=== PATIENT | female | born 1935 ===

== ENCOUNTER 2017-02-17 08:58 | Inpatient (IN) | payer MEDICARE, OTHER ==
[2017-02-17 09:42] LABS: BASO # 0.1 K/uL (0.0-0.2); BASO % 0.9 % (0.0-2.0); EOS # 0.2 K/uL (0.0-0.7); LYMPH # 1.2 K/uL (1.0-4.3); LYMPH % 22.7 % (20.0-40.0); MEAN CELL VOLUME 90.1 fl (81.0-99.0); MEAN CORPUSCULAR HEMOGLOBIN 29.7 pg (27.0-31.0); MEAN PLATELET VOLUME 7.6 fl (7.2-11.7); MONO # 0.3 K/uL (0.0-0.8); MONO % 5.8 % (0.0-10.0); NEUT # 3.6 K/uL (1.8-7.0); NEUT % 67.6 % (50.0-75.0); RED CELL DISTRIBUTION WIDTH 15.3 % (11.5-14.5); WHITE BLOOD COUNT 5.4 K/uL (4.8-10.8)
[2017-02-17 09:56] LABS: ALB/GLOB RATIO 1.2 (1.0-2.1); BILIRUBIN,TOTAL 0.9 mg/dl (0.2-1.3); CALCIUM 10.1 mg/dL (8.4-10.2); TOTAL PROTEIN 7.5 G/DL (6.3-8.2)
[2017-02-17 10:07] LABS: PARTIAL THROMBOPLASTIN TIME 31.5 SECONDS (23.3-32.5)
--- NOTE | 2017-02-17 10:53 | ED PDOC ---
HPI: General Adult Time Seen by Provider: 02/17/17 09:15 Chief Complaint (Nursing): GI Problem Chief Complaint (Provider): rectal bleeding History Per: Patient History/Exam Limitations: no limitations Current Symptoms Are (Timing): Still Present Severity: Moderate Recently: Treated By A Physician, Hospitalized Additional Complaint(s): 81yo female history recent PE now taking Xarelto, c/o rectal bleeding started this morning, 2 episodes grossly bloody stool accompanied by mild lower abd pain , dizziness and anxiety. Denies sycope, vomiting or fever. Also noted mild epistaxis in ED. Past Medical History Vital Signs: Last Vital Signs Temp 97.3 F L 02/20/17 12:18 Pulse 77 02/20/17 12:18 Resp 18 02/20/17 12:18 BP 131/72 02/20/17 12:18 Pulse Ox 99 02/20/17 12:18 - Medical History PMH: Anxiety, Arthritis, CAD, Depression, Diabetes (type II, takes Metformin), Diverticulitis, Gastritis, HTN, Hypercholesterolemia, Hypothyroidism Denies: Alzheimer's Disease, Atrial Fibrillation, Cardia Arrhythmia, CHF, Emphysema, HIV, Chronic Kidney Disease - Surgical History Surgical History: CABG, Cholecystectomy, Hernia Repair, Pacemaker, Tonsillectomy - Family History Family History: States: Unknown Family Hx - Home Medications Home Medications: Ambulatory Orders Medication Instructions Recorded Atorvastatin Calcium [Lipitor] 10 mg PO MWF 04/24/15 Alogliptin Benzoate [Nesina] 25 mg PO DAILY #0 tablet 09/29/16 Carvedilol [Coreg] 3.125 mg PO Q12H #0 tab 09/29/16 Dexlansoprazole [Dexilant] 60 mg PO DAILY #0 bp 09/29/16 Levothyroxine [Synthroid] 88 mcg PO DAILY #0 tab 09/29/16 Lorazepam [Ativan] 0.5 mg PO TID PRN #0 tablet 09/29/16 Escitalopram [Lexapro] 5 mg PO DAILY 01/28/17 Pioglitazone [Actos] 30 mg PO DAILY 01/28/17 Primidone [Mysoline] 25 mg PO HS 01/28/17 Rivaroxaban [Xarelto] 20 mg PO DAILY #30 tab 02/20/17 Sucralfate [Carafate] 1 gm PO TID #90 tab 02/20/17 - Allergies Allergies/Adverse Reactions: Allergies Allergy/AdvReac Type Severity Reaction Status Date / Time No Known Allergies Allergy Verified 01/28/17 10:28 Review of Systems ROS Statement: Except As Marked, All Systems Reviewed And Found Negative Constitutional: Negative for: Fever, Chills Eyes: Negative for: Vision Change, Conjunctivae Inflammation Cardiovascular: Positive for: Light Headedness. Negative for: Chest Pain, Palpitations Respiratory: Negative for: Cough, Shortness of Breath Gastrointestinal: Positive for: Abdominal Pain, Hematochezia, Rectal Pain. Negative for: Nausea, Vomiting, Diarrhea Musculoskeletal: Negative for: Neck Pain, Shoulder Pain Skin: Negative for: Rash, Lesions Neurological: Positive for: Dizziness. Negative for: Weakness, Numbness, Altered Mental Status Psych: Negative for: Depression Physical Exam - Reviewed Nursing Documentation Reviewed: Yes Vital Signs Reviewed: Yes - Physical Exam Appears: Positive for: Well, Non-toxic, No Acute Distress Head Exam: Positive for: ATRAUMATIC, NORMAL INSPECTION, NORMOCEPHALIC Skin: Positive for: Warm, Pallor (mild) Eye Exam: Positive for: EOMI, Normal appearance, PERRL ENT: Positive for: Normal ENT Inspection Neck: Positive for: Normal, Painless ROM Cardiovascular/Chest: Positive for: Regular Rate, Rhythm Respiratory: Positive for: CNT, Normal Breath Sounds Gastrointestinal/Abdominal: Positive for: Normal Exam, Bowel Sounds, Soft Back: Positive for: Normal Inspection Extremity: Positive for: Normal ROM Neurologic/Psych: Positive for: Alert, Oriented - Laboratory Results Result Diagrams: 02/20/17 11:35 02/17/17 09:32 - ECG O2 Sat by Pulse Oximetry: 100 Pulse Ox Interpretation: Normal Medical Decision Making Medical Decision Making: workup initated for rectal bleeding in elderly female on anticoagulation. Labs were reviewed which revealed mild anemia. Patient was admitted Dr Peters for further workup and monitoring. Disposition - Clinical Impression Clinical Impression: Gastrointestinal hemorrhage - Patient ED Disposition Is Patient to be Admitted: Yes Counseled Patient/Family Regarding: Studies Performed, Diagnosis, Need For Followup - Disposition Disposition Time: 11:35 Condition: GUARDED - Pt Status Changed To: Hospital Disposition Of: Observation - POA Present On Arrival: None
[2017-02-17 13:33] LABS: RBC URINE 2 /hpf (0-3); URINE BILIRUBIN NEGATIVE (NEGATIVE); URINE BLOOD NEGATIVE (NEGATIVE); URINE COLOR STRAW (YELLOW); URINE GLUCOSE (UA) NEG (Normal); URINE KETONE NEGATIVE (NEGATIVE); URINE LEUKOCYTE ESTERASE TRACE Leu/uL (Negative); URINE PROTEIN NEGATIVE (NEGATIVE); URINE UROBILINOGEN 0.2-1.0 mg/dL (0.2-1.0); WBC URINE < 1 /hpf (0-5)
[2017-02-17] MEDS ORDERED: Sucralfate 1 gm/10 ml Oral Susp UD PO ONE (21:00)
[2017-02-18 09:00] LABS: BASO % 0.7 % (0.0-2.0); EOS # 0.2 K/uL (0.0-0.7); EOS % 4.3 % (0.0-4.0); HEMATOCRIT 30.5 % (34.0-47.0); LYMPH # 1.4 K/uL (1.0-4.3); LYMPH % 26.7 % (20.0-40.0); MEAN CELL VOLUME 90.3 fl (81.0-99.0); MEAN CORPUSCULAR HEMOGLOBIN 29.8 pg (27.0-31.0); MEAN PLATELET VOLUME 7.6 fl (7.2-11.7); MONO # 0.4 K/uL (0.0-0.8); MONO % 7.1 % (0.0-10.0); NEUT # 3.3 K/uL (1.8-7.0); NEUT % 61.2 % (50.0-75.0); RED CELL DISTRIBUTION WIDTH 14.8 % (11.5-14.5); WHITE BLOOD COUNT 5.4 K/uL (4.8-10.8)
--- NOTE | 2017-02-18 10:58 | CP.PCM.HP ---
History of Present Illness - History of Present Illness History of Present Illness: This is an 81 y/o female who had a rectal bleed and epistaxis this morning. She was just diagnosed to have Pulm embolism and was hospitalized in [facility] in [facility] and sent home on Coumadin, seen in my office and was recently switched to Xarelto 15 mg BID the other day. She has a hx of DM 2 HTN anxiety paroxysmal a fib CAD CABG 3 vessel in 2006 Present on Admission - Present on Admission Any Indicators Present on Admission: No History of DVT/PE: No History of Uncontrolled Diabetes: No Urinary Catheter: No Decubitus Ulcer Present: No Review of Systems - Constitutional Constitutional: Fatigue - Cardiovascular Cardiovascular: Palpitations - Respiratory Respiratory: Cough - Psychiatric Psychiatric: Abnormal Sleep Pattern, Anxiety, Depression Past Patient History - Infectious Disease Hx of Infectious Diseases: None - Tetanus Immunizations Tetanus Immunization: Unknown - Past Medical History & Family History Past Medical History?: Yes - Past Social History Smoking Status: Never Smoked - CARDIAC Hx Cardiac Disorders: Yes - PULMONARY Hx Respiratory Disorders: Yes - NEUROLOGICAL Hx Neurological Disorder: No - HEENT Hx HEENT Problems: Yes - RENAL Hx Chronic Kidney Disease: No - ENDOCRINE/METABOLIC Hx Endocrine Disorders: Yes - HEMATOLOGICAL/ONCOLOGICAL Hx Blood Disorders: Yes - INTEGUMENTARY Hx Dermatological Problems: No - MUSCULOSKELETAL/RHEUMATOLOGICAL Hx Musculoskeletal Disorders: Yes Hx Falls: No - GASTROINTESTINAL Hx Diverticulitis: Yes Hx Gastritis: Yes - GENITOURINARY/GYNECOLOGICAL Hx Genitourinary Disorders: No - PSYCHIATRIC Hx Psychophysiologic Disorder: Yes Hx Substance Use: No - SURGICAL HISTORY Hx Cholecystectomy: Yes Hx Coronary Artery Bypass Graft: Yes Hx Tonsillectomy: Yes - ANESTHESIA Hx Anesthesia: Yes Hx Anesthesia Reactions: No Hx Malignant Hyperthermia: No Meds Home Medications: Home Medication List Medication Instructions Recorded Confirmed Type Pantoprazole [Protonix Inj] 40 mg IVP DAILY vial 02/18/17 Rx Sucralfate [Carafate Tab] 1 gm PO TID tab 02/18/17 Rx Allergies/Adverse Reactions: Allergies Allergy/AdvReac Type Severity Reaction Status Date / Time No Known Allergies Allergy Verified 01/28/17 10:28 Physical Exam - Head Exam Head Exam: NORMAL INSPECTION - Eye Exam Eye Exam: Normal appearance - ENT Exam ENT Exam: Mucous Membranes Moist Additional comments: epistaxis noted mild - Respiratory Exam Respiratory Exam: Clear to Auscultation Bilateral - Cardiovascular Exam Cardiovascular Exam: REGULAR RHYTHM - GI/Abdominal Exam GI & Abdominal Exam: Normal Bowel Sounds - Neurological Exam Neurological exam: CN II-XII Intact, Oriented x3 Results - Vital Signs Recent Vital Signs: Last Vital Signs Temp 97.8 F 02/18/17 09:00 Pulse 72 02/18/17 09:00 Resp 20 02/18/17 09:00 BP 133/71 02/18/17 09:00 Pulse Ox 98 02/18/17 09:00 - Labs Result Diagrams: 02/18/17 08:35 02/17/17 09:32 Labs: Laboratory Results - last 24 hr 02/17/17 02/18/17 12:08 08:35 WBC 5.4 RBC 3.38 L Hgb 10.1 L Hct 30.5 L MCV 90.3 MCH 29.8 MCHC 33.0 RDW 14.8 H Plt Count 175 MPV 7.6 Neut % (Auto) 61.2 Lymph % (Auto) 26.7 [place] % (Auto) 7.1 Eos % (Auto) 4.3 H Baso % (Auto) 0.7 Neut # 3.3 Lymph # 1.4 [place] # 0.4 Eos # 0.2 Baso # 0.0 Urine Color Straw Urine Clarity Clear Urine pH 9.0 Ur Specific [place] 1.008 Urine Protein Negative Urine Glucose (UA) Neg Urine Ketones Negative Urine Blood Negative Urine Nitrate Negative Urine Bilirubin Negative Urine Urobilinogen 0.2-1.0 Ur Leukocyte Esterase Trace Urine RBC (Auto) 2 Urine Microscopic WBC < 1 Ur Squamous Epith Cells 1 Assessment & Plan (1) HTN (hypertension) Status: Acute (2) S/P CABG (coronary artery bypass graft) Status: Acute (3) Anxiety attack Status: Chronic (4) Rectal bleed Status: Acute (5) Epistaxis Status: Acute (6) Pulmonary emboli Status: Acute (7) Paroxysmal a-fib Status: Acute (8) Hypothyroidism Status: Acute (9) Diabetes mellitus type 2 in nonobese Status: Acute - Assessment and Plan (Free Text) Plan: Hold Xarelto cardiology eval GI eval NPO Hydrate cont tx resume meds in am.check cbcantacid
--- NOTE | 2017-02-18 10:59 | CP.PCM.PN ---
Subjective - Date & Time of Evaluation Date of Evaluation: 02/18/17 Time of Evaluation: 10:59 - Subjective Subjective: Patient is now on clear liquids. has no episode of rectal bled today. Started on clear liquids CBC has been stable. Objective - Vital Signs/Intake and Output Vital Signs (last 24 hours): Temp Pulse Resp BP Pulse Ox 97.8 F 72 20 133/71 98 02/18/17 09:00 02/18/17 09:00 02/18/17 09:00 02/18/17 09:00 02/18/17 09:00 - Medications Medications: Current Medications Lorazepam (Ativan) 0.5 mg PO Q8 [facility] Last Admin: 02/18/17 09:12 Dose: 0.5 mg Pantoprazole Sodium (Protonix Inj) 40 mg IVP DAILY [facility] Last Admin: 02/18/17 09:12 Dose: 40 mg Sucralfate (Carafate Tab) 1 gm PO TID [facility] Last Admin: 02/18/17 09:12 Dose: 1 gm - Labs Labs: 02/18/17 08:35 PT 14.4 SECONDS (9.6-11.2) H 02/17/17 09:32 INR 1.38 (0.92-1.08) H 02/17/17 09:32 APTT 31.5 SECONDS (23.3-32.5) 02/17/17 09:32 - Head Exam Head Exam: NORMAL INSPECTION - Eye Exam Eye Exam: Normal appearance - ENT Exam ENT Exam: Mucous Membranes Moist - Respiratory Exam Respiratory Exam: Clear to Ausculation Bilateral - Cardiovascular Exam Cardiovascular Exam: REGULAR RHYTHM - GI/Abdominal Exam GI & Abdominal Exam: Normal Bowel Sounds - Neurological Exam Neurological Exam: CN II-XII Intact, Oriented x3 - Psychiatric Exam Psychiatric exam: Normal Mood Assessment and Plan (1) Diabetes mellitus type 2 in nonobese Status: Acute (2) Epistaxis Status: Acute (3) Hypothyroidism Status: Acute (4) Paroxysmal a-fib Status: Acute (5) Pulmonary emboli Status: Acute (6) Rectal bleed Status: Acute (7) Anxiety Status: Acute - Assessment and Plan (Free Text) Plan: contmeds follow up cbc advanace diet DC plan for am cont monitor hydrate
--- NOTE | 2017-02-18 19:01 | CP.PCM.CON ---
History of Present Illness - History of Present Illness History of Present Illness: I was asked by Dr. Peters to evaluate this 81 year old lady followed by Dr. Rawls who was admitted to the hospital with rectal bleeding and epistaxis. The patient was recently seen at [facility] for shortness of breath. At that time, she was diagnosed with pulmonary embolism and discharged on warfarin therapy. This was changed to xarelto last week prior to the bleeding. The patient is seen in her room with a family member present during the encounter. She denies chest pain or shortness of breath. The patient has a known history of CAD s/p 3 vessel CABG in 2006 at [facility], atrial fibrillation, and hypertension. Review of Systems - Constitutional Constitutional: As Per HPI - EENT Eyes: As Per HPI Past Patient History - Infectious Disease Hx of Infectious Diseases: None - Tetanus Immunizations Tetanus Immunization: Unknown - Past Medical History & Family History Past Medical History?: Yes - Past Social History Smoking Status: Never Smoked - CARDIAC Hx Cardiac Disorders: Yes Hx Hypertension: Yes Hx Pacemaker: Yes - PULMONARY Hx Respiratory Disorders: Yes - NEUROLOGICAL Hx Neurological Disorder: No - HEENT Hx HEENT Problems: Yes - RENAL Hx Chronic Kidney Disease: No - ENDOCRINE/METABOLIC Hx Endocrine Disorders: Yes - HEMATOLOGICAL/ONCOLOGICAL Hx Blood Disorders: Yes - INTEGUMENTARY Hx Dermatological Problems: No - MUSCULOSKELETAL/RHEUMATOLOGICAL Hx Musculoskeletal Disorders: Yes Hx Falls: No - GASTROINTESTINAL Hx Diverticulitis: Yes Hx Gastritis: Yes - GENITOURINARY/GYNECOLOGICAL Hx Genitourinary Disorders: No - PSYCHIATRIC Hx Psychophysiologic Disorder: Yes Hx Substance Use: No - SURGICAL HISTORY Hx Cholecystectomy: Yes Hx Coronary Artery Bypass Graft: Yes Hx Tonsillectomy: Yes - ANESTHESIA Hx Anesthesia: Yes Hx Anesthesia Reactions: No Hx Malignant Hyperthermia: No Meds Home Medications: Home Medication List Medication Instructions Recorded Confirmed Type Pantoprazole [Protonix Inj] 40 mg IVP DAILY vial 02/18/17 Rx Sucralfate [Carafate Tab] 1 gm PO TID tab 02/18/17 Rx Allergies/Adverse Reactions: Allergies Allergy/AdvReac Type Severity Reaction Status Date / Time No Known Allergies Allergy Verified 01/28/17 10:28 - Medications Medications: Current Medications Lorazepam (Ativan) 0.5 mg PO Q8 [facility] Last Admin: 02/18/17 17:24 Dose: 0.5 mg Pantoprazole Sodium (Protonix Inj) 40 mg IVP DAILY [facility] Last Admin: 02/18/17 09:12 Dose: 40 mg Rivaroxaban (Xarelto) 15 mg PO BID [facility] PRN Reason: Protocol Last Admin: 02/18/17 18:01 Dose: 15 mg Sucralfate (Carafate Tab) 1 gm PO TID [facility] Last Admin: 02/18/17 17:22 Dose: 1 gm Physical Exam - Constitutional Appears: Well, Non-toxic, No Acute Distress - Head Exam Head Exam: ATRAUMATIC, NORMOCEPHALIC - Eye Exam Eye Exam: EOMI, PERRL Pupil Exam: NORMAL ACCOMODATION - ENT Exam ENT Exam: Mucous Membranes Moist - Neck Exam Neck exam: Positive for: Normal Inspection - Respiratory Exam Respiratory Exam: Clear to Auscultation Bilateral, NORMAL BREATHING PATTERN - Cardiovascular Exam Cardiovascular Exam: REGULAR RHYTHM, +S1, +S2 - GI/Abdominal Exam GI & Abdominal Exam: Normal Bowel Sounds - Extremities Exam Extremities exam: Positive for: full ROM - Back Exam Back exam: NORMAL INSPECTION - Neurological Exam Neurological exam: CN II-XII Intact Results - Vital Signs Recent Vital Signs: Last Vital Signs Temp 97.8 F 02/18/17 17:00 Pulse 67 02/18/17 17:00 Resp 20 02/18/17 17:00 BP 152/79 H 02/18/17 17:00 Pulse Ox 98 02/18/17 17:00 - Labs Result Diagrams: 02/18/17 08:35 02/17/17 09:32 Labs: Laboratory Results - last 24 hr 02/18/17 08:35 WBC 5.4 RBC 3.38 L Hgb 10.1 L Hct 30.5 L MCV 90.3 MCH 29.8 MCHC 33.0 RDW 14.8 H Plt Count 175 MPV 7.6 Neut % (Auto) 61.2 Lymph % (Auto) 26.7 [place] % (Auto) 7.1 Eos % (Auto) 4.3 H Baso % (Auto) 0.7 Neut # 3.3 Lymph # 1.4 [place] # 0.4 Eos # 0.2 Baso # 0.0 Assessment & Plan - Assessment and Plan (Free Text) Assessment: 1. Rectal bleed. 2. Anemia. 3. Paroxysmal atrial fibrillation. 4. SSS. Plan: 1. Hold anticoagulation due to bleeding. 2. Continue present cardiac medications. 3. Follow up in the office with Dr. Rawls.
[2017-02-20 07:37] VITALS: RESP 18
--- NOTE | 2017-02-20 08:35 | PQF GENQUE ---
This form is a permanent part of the medical record 02/20/17 Dr. Peters, A cause and effect relationship may not be assumed and must be documented by a provider. Please clarify the relationship, if any, between THE USE OF XARELTO and RECTAL BLEEDING/ EPISTAXIS. Are the conditions: [] Due to or associated with each other [] Unrelated to each other [] Unable to determine [] Unknown Just diagnosed at another hospital with a pulmonary embolism. Started on warfarin which was switched to xarelto. Developed rectal bleeding and epistaxis. Treated with protonix and carafate. Clarification of your documentation is requested to better reflect the severity of illness and intensity of treatment of your patient. PHYSICIAN'S RESPONSE Please clarify the relationship, if any, between THE USE OF XARELTO and RECTAL BLEEDING/ EPISTAXIS. Are the conditions: [ ] Due to or associated with each other [ ] Unrelated to each other [ ] Unable to determine [ ] Unknown Based on your medical judgment of the clinical indicators outlined above please clarify the following: [] Practitioner response [] If unable to determine, please check the box, sign and date. Present On Admission (POA) Indicator: [] Present at the time of admission [] Not present at the time of admission [] Clinically Undetermined In responding to this query, please exercise your independent professional judgment. The fact that a question is asked does not imply that any particular answer is desired or expected. Thank you for your clarification on this documentation. If you have any questions please call:[phone] * Thank you, Melinda Morales RN [facility]
[2017-02-20 11:59] LABS: HEMATOCRIT 35.4 % (34.0-47.0); MEAN CELL VOLUME 91.3 fl (81.0-99.0); MEAN CORPUSCULAR HEMOGLOBIN 30.4 pg (27.0-31.0); MEAN CORPUSCULAR HGB CONC 33.3 g/dL (33.0-37.0); RED CELL DISTRIBUTION WIDTH 14.6 % (11.5-14.5)
--- NOTE | 2017-02-20 12:16 | CP.PCM.PN ---
Subjective - Date & Time of Evaluation Date of Evaluation: 02/20/17 Time of Evaluation: 12:15 - Subjective Subjective: Reason for visit: GI bleeding. Interval History: The patient is doing well and is OOB to a chair. She denies any further GI bleeding or epistaxsis and has been stable cardiac [place] without complaints of chest pain or dyspnea. She is eager to be discharged home. Objective - Vital Signs/Intake and Output Vital Signs (last 24 hours): Temp Pulse Resp BP Pulse Ox 98.3 F 50 L 18 150/76 99 02/20/17 08:00 02/20/17 09:00 02/20/17 08:00 02/20/17 08:00 02/20/17 08:00 - Medications Medications: Current Medications Lorazepam (Ativan) 0.5 mg PO Q8 [facility] Last Admin: 02/20/17 09:28 Dose: 0.5 mg Pantoprazole Sodium (Protonix Inj) 40 mg IVP DAILY [facility] Last Admin: 02/20/17 09:26 Dose: 40 mg Sucralfate (Carafate Tab) 1 gm PO TID [facility] Last Admin: 02/20/17 09:26 Dose: 1 gm - Labs Labs: 02/20/17 11:35 PT 14.4 SECONDS (9.6-11.2) H 02/17/17 09:32 INR 1.38 (0.92-1.08) H 02/17/17 09:32 APTT 31.5 SECONDS (23.3-32.5) 02/17/17 09:32 - Constitutional Appears: Well, No Acute Distress - Head Exam Head Exam: ATRAUMATIC, NORMAL INSPECTION, NORMOCEPHALIC - Eye Exam Eye Exam: Normal appearance Pupil Exam: PERRL - ENT Exam ENT Exam: Mucous Membranes Moist, Normal Exam - Neck Exam Neck Exam: Full ROM - Respiratory Exam Respiratory Exam: Clear to Ausculation Bilateral, NORMAL BREATHING PATTERN - Cardiovascular Exam Cardiovascular Exam: REGULAR RHYTHM, +S1, +S2, Murmur - GI/Abdominal Exam GI & Abdominal Exam: Soft - Rectal Exam Rectal Exam: Deferred - Extremities Exam Extremities Exam: Full ROM, Normal Inspection - Back Exam Back Exam: NORMAL INSPECTION - Neurological Exam Neurological Exam: Alert, Awake, Oriented x3 - Psychiatric Exam Psychiatric exam: Normal Affect, Normal Mood - Skin Skin Exam: Dry, Intact, Normal Color Assessment and Plan - Assessment and Plan (Free Text) Assessment: GI bleed, Hgb stable. CAD, s/p CABG. Hypertension, stable. Dyslipidemia. Pulmonary embolism, recent. Plan: Continue present medical management. I have discussed the case with the primary care [employer] regarding anticoagulation with Xarelto which should be restarted since there is no further evidence of bleeding and the pulmonary embolism was diagnosed recently. Stable for discharge.
[2017-02-20 12:19] VITALS: BP 131/72; PULSE 77; TEMP 97.3
[2017-02-25 10:53] VITALS: O2SAT 100
== END 2017-02-20 14:50 | disposition home or self-care (01) | DRG 377 ==
LOC: H.ER 08:58 → H.ERHOLD 10:50 → H.TEL 18:30
PROVIDERS: ADMIT Family Medicine; ATTEND Family Medicine
DX: K62.5 Hemorrhage of anus and rectum (principal); I26.99 Other pulmonary embolism without acute cor pulmonale; I49.5 Sick sinus syndrome; E11.9 Type 2 diabetes mellitus without complications; I10 Essential (primary) hypertension; D64.9 Anemia, unspecified; T45.515A Adverse effect of anticoagulants, initial encounter; F32.9 Major depressive disorder, single episode, unspecified; I48.0 Paroxysmal atrial fibrillation; Z95.1 Presence of aortocoronary bypass graft; F41.1 Generalized anxiety disorder; R04.0 Epistaxis; I25.10 Atherosclerotic heart disease of native coronary artery without angina pectoris; E03.9 Hypothyroidism, unspecified; E78.00 Pure hypercholesterolemia, unspecified; F41.9 Anxiety disorder, unspecified; Z90.49 Acquired absence of other specified parts of digestive tract; Z86.711 Personal history of pulmonary embolism; Z79.01 Long term (current) use of anticoagulants; E78.5 Hyperlipidemia, unspecified; Y92.9 Unspecified place or not applicable

== ENCOUNTER 2017-07-11 11:31 | Observation (INO) | payer MEDICARE, OTHER ==
[2017-07-11 11:40] VITALS: BMI 27.8
--- NOTE | 2017-07-11 12:51 | RAD ---
HISTORY: CP COMPARISON: 09/28/2016 TECHNIQUE: Chest PA and lateral FINDINGS: LUNGS: No active pulmonary disease. PLEURA: No significant pleural effusion identified. No pneumothorax apparent. CARDIOVASCULAR: Normal heart size. Status post CABG. Permanent pacemaker. No congestive change. OSSEOUS STRUCTURES: No significant abnormalities. VISUALIZED UPPER ABDOMEN: Normal. OTHER FINDINGS: None. IMPRESSION: No active disease.
[2017-07-11 13:05] LABS: BASO % 0.6 % (0.0-2.0); EOS # 0.1 K/uL (0.0-0.7); EOS % 1.1 % (0.0-4.0); HEMATOCRIT 31.9 % (34.0-47.0); LYMPH # 1.5 K/uL (1.0-4.3); LYMPH % 19.9 % (20.0-40.0); MEAN CELL VOLUME 86.9 fl (81.0-99.0); MEAN CORPUSCULAR HEMOGLOBIN 29.8 pg (27.0-31.0); MEAN CORPUSCULAR HGB CONC 34.3 g/dL (33.0-37.0); MEAN PLATELET VOLUME 7.5 fl (7.2-11.7); MONO # 0.4 K/uL (0.0-0.8); MONO % 5.2 % (0.0-10.0); NEUT # 5.6 K/uL (1.8-7.0); NEUT % 73.2 % (50.0-75.0); NRBC % 0.1 % (0.0-0.0); RED CELL DISTRIBUTION WIDTH 14.2 % (11.5-14.5); WHITE BLOOD COUNT 7.7 K/uL (4.8-10.8)
[2017-07-11 13:23] LABS: PARTIAL THROMBOPLASTIN TIME 34.4 Seconds (25.6-37.1)
[2017-07-11 13:42] LABS: BLOOD UREA NITROGEN 18 mg/dl (7-17); CARBON DIOXIDE 22 mmol/L (22-30); CHLORIDE 105 mmol/L (98-107); GFR AFRICAN-AMERICAN > 60; GLUCOSE,RANDOM 96 mg/dL (65-105); POTASSIUM 4.4 MMOL/L (3.6-5.0); SODIUM 138 mmol/l (132-148)
[2017-07-11 13:43] LABS: ALB/GLOB RATIO 1.4 (1.0-2.1); ALKALINE PHOSPHATASE 89 U/L (38-126); ALT/SGPT 18 U/L (9-52); AST/SGOT 23 U/L (14-36); BILIRUBIN,TOTAL 0.4 mg/dl (0.2-1.3); CALCIUM 10.1 mg/dL (8.4-10.2); LIPASE 95 U/L (23-300); TOTAL PROTEIN 7.3 G/DL (6.3-8.2)
[2017-07-11] MEDS ORDERED: Sodium Chloride 0.9% 50 ML IV ONE (13:53)
[2017-07-11] MEDS ORDERED: Iohexol 300 100 ML IJ ONE (13:53)
[2017-07-11 14:34] LABS: RBC URINE 3 /hpf (0-3); URINE BILIRUBIN NEGATIVE (NEGATIVE); URINE BLOOD NEGATIVE (NEGATIVE); URINE COLOR STRAW (YELLOW); URINE GLUCOSE (UA) NEG (Normal); URINE KETONE NEGATIVE (NEGATIVE); URINE LEUKOCYTE ESTERASE NEG Leu/uL (Negative); URINE PROTEIN NEGATIVE (NEGATIVE); URINE UROBILINOGEN 0.2-1.0 mg/dL (0.2-1.0); WBC URINE 1 /hpf (0-5)
--- NOTE | 2017-07-11 14:47 | CT ---
PROCEDURE: CT HEAD WITHOUT CONTRAST. HISTORY: Headache COMPARISON: 11/09/2016. TECHNIQUE: Axial computed tomography images were obtained through the head/brain without intravenous contrast. Radiation dose: Total exam DLP = 765.1 mGy-cm. This CT exam was performed using one or more of the following dose reduction techniques: Automated exposure control, adjustment of the mA and/or kV according to patient size, and/or use of iterative reconstruction technique. FINDINGS: HEMORRHAGE: No intracranial hemorrhage. BRAIN: There are mild chronic microangiopathic changes. There is no mass, mass effect or abnormal extra-axial fluid collection. VENTRICLES: There is mild age-related global parenchymal volume loss and proportionate enlargement of the ventricles and cortical sulci. CALVARIUM: The skull base and calvarium are normal. PARANASAL SINUSES: Predominantly clear. MASTOID AIR CELLS: Predominantly clear. OTHER FINDINGS: None. IMPRESSION: No acute intracranial abnormality. Mild chronic microangiopathic changes and mild age-related global parenchymal volume loss.
--- NOTE | 2017-07-11 15:29 | CT ---
PROCEDURE: CT Abdomen and Pelvis with contrast HISTORY: Gen abd pain COMPARISON: 01/28/2017 TECHNIQUE: Contrast dose: 100 mL Omnipaque 300 Radiation dose: Total exam DLP = 110.78 mGy-cm. This CT exam was performed using one or more of the following dose reduction techniques: Automated exposure control, adjustment of the mA and/or kV according to patient size, and/or use of iterative reconstruction technique. FINDINGS: LOWER THORAX: Permanent pacemaker. Sternotomy wires. No infiltrate. LIVER: Normal size, contour and attenuation. Mild intrahepatic biliary gas, particularly in left hepatic lobe, status post cholecystectomy. This is unchanged from prior CT examination. No mass. GALLBLADDER AND BILE DUCTS: Status post cholecystectomy. Mild dilatation of common bile duct to 9 mm diameter, consistent with age and prior cholecystectomy. PANCREAS: Unremarkable. No gross lesion or ductal dilatation. SPLEEN: Unremarkable. ADRENALS: Unremarkable. No mass. KIDNEYS AND URETERS: No renal mass, calculus or hydronephrosis. Cortical scarring mid left kidney with adjacent small nodular medullary calcification common nonspecific. VASCULATURE: Unremarkable. No aortic aneurysm. BOWEL: There is diverticulosis of the sigmoid colon with mild mural thickening, likely due to chronic muscular hypertrophy. There is mural thickening of a segment of small bowel, likely distal jejunum or proximal ileum. This is best seen on axial images 1 0 to through 111 in the central abdomen. This is also seen on coronal images 33 through 37. Nonspecific enteritis. No bowel obstruction. No other abnormal bowel loops. APPENDIX: Not identified. No secondary findings to suggest acute appendicitis. PERITONEUM: Unremarkable. No free fluid. No free air. LYMPH NODES: Unremarkable. No enlarged lymph nodes. BLADDER: Unremarkable. REPRODUCTIVE: Unremarkable uterus. BONES: No fracture. Multilevel degenerative disc disease. OTHER FINDINGS: None. IMPRESSION: Findings consistent with nonspecific enteritis involving a segment of distal jejunum or proximal ileum. Sigmoid diverticulosis without evidence of diverticulitis. No other acute abnormality. Additional minor findings as above.
--- NOTE | 2017-07-11 15:37 | ED PDOC ---
HPI: Chest Pain Time Seen by Provider: 07/11/17 12:07 Chief Complaint (Nursing): Chest Pain Chief Complaint (Provider): Headache, chest pain, abdominal pain History Per: Patient History/Exam Limitations: no limitations Onset/Duration Of Symptoms: Days (x 1) Current Symptoms Are (Timing): Still Present Associated Symptoms: Diaphoresis, Syncope Additional Complaint(s): Erika Mcgraw is an 81 y/o female complaining of left-sided chest pain, lower abdominal pain, and headache, for 1 day. Pain is non-radiating. Patient reports she felt constipated and at 6AM attempted to have a bowel movement, during which she became diaphoretic had a near syncope episode. She also had diarrhea. Denies nausea and vomiting. PMD: Ishan Peters Past Medical History Reviewed: Historical Data, Nursing Documentation, Vital Signs Vital Signs: Last Vital Signs Temp 97.7 F 07/12/17 15:49 Pulse 69 07/12/17 15:49 Resp 20 07/12/17 15:49 BP 134/76 07/12/17 15:49 Pulse Ox 97 07/12/17 15:49 - Medical History PMH: Anxiety, Arthritis, CAD, Depression, Diabetes (type II, takes Metformin), Diverticulitis, Gastritis, HTN, Hypercholesterolemia, Hypothyroidism Denies: Alzheimer's Disease, Atrial Fibrillation, Cardia Arrhythmia, CHF, Emphysema, HIV, Chronic Kidney Disease - Surgical History Surgical History: CABG, Cholecystectomy, Hernia Repair, Pacemaker, Tonsillectomy - Family History Family History: States: Unknown Family Hx - Social History Current smoker - smoking cessation education provided: No Alcohol: None Drugs: Denies - Home Medications Home Medications: Ambulatory Orders Medication Instructions Recorded Alogliptin Benzoate [Alogliptin] 25 mg PO QPM 07/11/17 Atorvastatin [Lipitor] 10 mg PO MWF 07/11/17 Carvedilol [Coreg] 3.125 mg PO Q12H 07/11/17 Dexlansoprazole [Dexilant] 60 mg PO DAILY 07/11/17 LORazepam [Ativan] 0.5 mg PO Q8H PRN 07/11/17 Levothyroxine [Synthroid] 88 mcg PO DAILY 07/11/17 Lubiprostone [Amitiza] 24 mcg PO DAILY 07/11/17 Metformin ER [Glucophage XR] 500 mg PO DAILY 07/11/17 Pioglitazone [Actos] 15 mg PO DAILY 07/11/17 Rivaroxaban [Xarelto] 20 mg PO QPM 07/11/17 Escitalopram Oxalate [Lexapro] 5 mg PO QPM 07/19/17 - Allergies Allergies/Adverse Reactions: Allergies Allergy/AdvReac Type Severity Reaction Status Date / Time No Known Allergies Allergy Verified 07/11/17 12:05 Review of Systems ROS Statement: Except As Marked, All Systems Reviewed And Found Negative Constitutional: Positive for: Sweats (diaphoretic earlier today) Cardiovascular: Positive for: Chest Pain (Left-sided) Gastrointestinal: Positive for: Abdominal Pain (Lower), Diarrhea, Constipation. Negative for: Nausea, Vomiting Neurological: Positive for: Headache, Other (Near syncopal episode) Physical Exam - Reviewed Nursing Documentation Reviewed: Yes Vital Signs Reviewed: Yes - Physical Exam Appears: Positive for: Well, Non-toxic, No Acute Distress Head Exam: Positive for: ATRAUMATIC, NORMAL INSPECTION, NORMOCEPHALIC Skin: Positive for: Normal Color, Warm, DRY Eye Exam: Positive for: EOMI, Normal appearance, PERRL Neck: Positive for: Normal, Painless ROM, Supple Cardiovascular/Chest: Positive for: Regular Rate, Rhythm. Negative for: Murmur Respiratory: Positive for: Normal Breath Sounds. Negative for: Respiratory Distress Gastrointestinal/Abdominal: Positive for: Soft, Tenderness (Generalized) Back: Positive for: Normal Inspection. Negative for: Vertebral Tenderness Extremity: Positive for: Normal ROM. Negative for: Deformity Neurologic/Psych: Positive for: Alert, Oriented - Laboratory Results Result Diagrams: 07/12/17 06:05 07/12/17 06:05 - ECG O2 Sat by Pulse Oximetry: 97 (RA) Pulse Ox Interpretation: Normal Medical Decision Making Medical Decision Making: Time: 12:20 Initial Impression: Rib contusion, Rib fracture, r/o pneumothorax Initial Plan: --CMP --Lipase --CBC --PTT --Prothrombin time --CXR --EKG --Accucheck --Urine dipstick --Urinalysis --Pending CT Abdomen/Pelvis IV PO contrast and CT Head w/o contrast Time: 12:34 Chest X-Ray: FINDINGS: LUNGS: No active pulmonary disease. PLEURA: No significant pleural effusion identified. No pneumothorax apparent. CARDIOVASCULAR: Normal heart size. Status post CABG. Permanent pacemaker. No congestive change. OSSEOUS STRUCTURES: No significant abnormalities. VISUALIZED UPPER ABDOMEN: Normal. OTHER FINDINGS: None. IMPRESSION: No active disease. Time: 14:45 CT Head: FINDINGS: HEMORRHAGE: No intracranial hemorrhage. BRAIN: There are mild chronic microangiopathic changes. There is no mass, mass effect or abnormal extra-axial fluid collection. VENTRICLES: There is mild age-related global parenchymal volume loss and proportionate enlargement of the ventricles and cortical sulci. CALVARIUM: The skull base and calvarium are normal. PARANASAL SINUSES: Predominantly clear. MASTOID AIR CELLS: Predominantly clear. OTHER FINDINGS: None. IMPRESSION: No acute intracranial abnormality. Mild chronic microangiopathic changes and mild age-related global parenchymal volume loss. Time: 15:27 CT Abdomen/Pelvis: FINDINGS: LOWER THORAX: Permanent pacemaker. Sternotomy wires. No infiltrate. LIVER: Normal size, contour and attenuation. Mild intrahepatic biliary gas, particularly in left hepatic lobe, status post cholecystectomy. This is unchanged from prior CT examination. No mass. GALLBLADDER AND BILE DUCTS: Status post cholecystectomy. Mild dilatation of common bile duct to 9 mm diameter, consistent with age and prior cholecystectomy. PANCREAS: Unremarkable. No gross lesion or ductal dilatation. SPLEEN: Unremarkable. ADRENALS: Unremarkable. No mass. KIDNEYS AND URETERS: No renal mass, calculus or hydronephrosis. Cortical scarring mid left kidney with adjacent small nodular medullary calcification common nonspecific. VASCULATURE: Unremarkable. No aortic aneurysm. BOWEL: There is diverticulosis of the sigmoid colon with mild mural thickening, likely due to chronic muscular hypertrophy. There is mural thickening of a segment of small bowel, likely distal jejunum or proximal ileum. This is best seen on axial images 1 0 to through 111 in the central abdomen. This is also seen on coronal images 33 through 37. Nonspecific enteritis. No bowel obstruction. No other abnormal bowel loops. APPENDIX: Not identified. No secondary findings to suggest acute appendicitis. PERITONEUM: Unremarkable. No free fluid. No free air. LYMPH NODES: Unremarkable. No enlarged lymph nodes. BLADDER: Unremarkable. REPRODUCTIVE: Unremarkable uterus. BONES: No fracture. Multilevel degenerative disc disease. OTHER FINDINGS: None. IMPRESSION: Findings consistent with nonspecific enteritis involving a segment of distal jejunum or proximal ileum. Sigmoid diverticulosis without evidence of diverticulitis. No other acute abnormality. Additional minor findings as above. Time: 15:40 --Consulted with Dr. Peters, started patient on Cipro for enteritis seen on CT --Patient will be admitted inpatient for chest pain and enteritis, under service of Ishan Peters --Ordered consult for Dr. Rawls, Cardiology on-call Time: 16:42 --Dr. Peters wanted the resident notified. Paged twice with no response. Scribe Attestation: Documented by Radha Veras, acting as a scribe for Eufemia Schneider MD Provider Scribe Attestation: All medical record entries made by the Scribe were at my direction and personally dictated by me. I have reviewed the chart and agree that the record accurately reflects my personal performance of the history, physical exam, medical decision making, and the department course for this patient. I have also personally directed, reviewed, and agree with the discharge instructions and disposition. Disposition - Clinical Impression Clinical Impression: Chest pain, Enteritis - Patient ED Disposition Is Patient to be Admitted: Yes - Disposition Disposition Time: 15:38 Condition: STABLE - Pt Status Changed To: Hospital Disposition Of: Inpatient - Admit Certification Admit to Inpatient:: After my assessment, the patient will require hospitalization for at least two midnights. This is because of the severity of symptoms shown, intensity of services needed, and/or the medical risk in this patient being treated as an outpatient. - POA Present On Arrival: None
[2017-07-11] MEDS ORDERED: Ciprofloxacin 400mg/200ml D5W 400 MG/200 ML BAG IV STA (15:39)
[2017-07-11] MEDS ORDERED: Ciprofloxacin 400mg/200ml D5W 400 MG/200 ML BAG IVPB ONE (16:55)
[2017-07-11] MEDS: Dextrose 5%/Lactated Ringer's 1,000 ML IV SCH (20:35)
[2017-07-11] MEDS: Ciprofloxacin 400mg/200ml D5W 400 MG/200 ML BAG IVPB SCH (22:07)
[2017-07-12] MEDS ORDERED: metroNIDAZOLE 500mg/100ml NS 100 ML IVPB SCH (01:00)
[2017-07-12] MEDS: Dextrose 5%/Lactated Ringer's 1,000 ML IV SCH (06:40)
[2017-07-12 06:50] LABS: HEMATOCRIT 31.1 % (34.0-47.0); MEAN CELL VOLUME 87.6 fl (81.0-99.0); MEAN CORPUSCULAR HEMOGLOBIN 29.1 pg (27.0-31.0); MEAN CORPUSCULAR HGB CONC 33.2 g/dL (33.0-37.0); RED CELL DISTRIBUTION WIDTH 14.6 % (11.5-14.5); WHITE BLOOD COUNT 5.8 K/uL (4.8-10.8)
[2017-07-12 06:58] LABS: ALB/GLOB RATIO 1.3 (1.0-2.1); ALKALINE PHOSPHATASE 69 U/L (38-126); ALT/SGPT 30 U/L (9-52); AST/SGOT 22 U/L (14-36); BILIRUBIN,TOTAL 0.4 mg/dl (0.2-1.3); BLOOD UREA NITROGEN 17 mg/dl (7-17); CALCIUM 9.6 mg/dL (8.4-10.2); CARBON DIOXIDE 22 mmol/L (22-30); CHLORIDE 105 mmol/L (98-107); GFR AFRICAN-AMERICAN > 60; GLUCOSE,RANDOM 106 mg/dL (65-105); SODIUM 139 mmol/l (132-148); TOTAL PROTEIN 6.6 G/DL (6.3-8.2)
--- NOTE | 2017-07-12 10:59 | CP.PCM.HP ---
History of Present Illness - History of Present Illness History of Present Illness: 81 y/o F with PMHx that includes HTN, DM type 2, CAD, s/p CABG, and arrhythmia s /p pacemaker who presented yesterday to ED c/o diffuse abdominal pain radiating to her chest. Patient reports that she has a h/o constipation and yesterday when she was trying to move her bowels, she felt weak and was having palpitations, but she did not LOC. Denies associated N/V, SOB, syncope, dizziness. patient seen and examined with attending. patient denies chest or abdominal pain at this evaluation. Denies SOB, N, V, or other complains afebrile Present on Admission - Present on Admission Any Indicators Present on Admission: No History of DVT/PE: No History of Uncontrolled Diabetes: No Urinary Catheter: No Decubitus Ulcer Present: No Review of Systems - Review of Systems All systems: reviewed and no additional remarkable complaints except (as per HPI ) Past Patient History - Infectious Disease Hx of Infectious Diseases: None - Tetanus Immunizations Tetanus Immunization: Unknown - Past Medical History & Family History Past Medical History?: Yes - Past Social History Smoking Status: Never Smoked - CARDIAC Hx Cardiac Disorders: Yes Hx Atrial Fibrillation: No Hx Cardia Arrhythmia: No Hx Congestive Heart Failure: No Hx Hypercholesterolemia: Yes Hx Hypertension: Yes Hx Pacemaker: Yes - PULMONARY Hx Respiratory Disorders: No Hx Emphysema: No - NEUROLOGICAL Hx Neurological Disorder: No Hx Alzheimer's Disease: No - HEENT Hx HEENT Problems: Yes - RENAL Hx Chronic Kidney Disease: No - ENDOCRINE/METABOLIC Hx Endocrine Disorders: Yes Hx Diabetes Mellitus Type 2: Yes Hx Hypothyroidism: Yes - HEMATOLOGICAL/ONCOLOGICAL Hx Blood Disorders: No Hx Human Immunodeficiency Virus (HIV): No - INTEGUMENTARY Hx Dermatological Problems: No - MUSCULOSKELETAL/RHEUMATOLOGICAL Hx Musculoskeletal Disorders: Yes Hx Arthritis: Yes Hx Falls: No - GASTROINTESTINAL Hx Gastrointestinal Disorders: Yes Hx Diverticulitis: Yes Hx Gastritis: Yes - GENITOURINARY/GYNECOLOGICAL Hx Genitourinary Disorders: No - PSYCHIATRIC Hx Psychophysiologic Disorder: Yes Hx Anxiety: Yes Hx Substance Use: No - SURGICAL HISTORY Hx Surgeries: Yes Hx Cholecystectomy: Yes Hx Coronary Artery Bypass Graft: Yes Hx Tonsillectomy: Yes Other/Comment: Hernia repair - ANESTHESIA Hx Anesthesia: Yes Hx Anesthesia Reactions: No Hx Malignant Hyperthermia: No Meds Allergies/Adverse Reactions: Allergies Allergy/AdvReac Type Severity Reaction Status Date / Time No Known Allergies Allergy Verified 07/11/17 12:05 Physical Exam - Constitutional Appears: No Acute Distress - ENT Exam ENT Exam: Mucous Membranes Moist - Respiratory Exam Respiratory Exam: Clear to Auscultation Bilateral, NORMAL BREATHING PATTERN - Cardiovascular Exam Cardiovascular Exam: REGULAR RHYTHM, +S1, +S2 - GI/Abdominal Exam GI & Abdominal Exam: Normal Bowel Sounds, Soft. absent: Distended, Firm, Guarding, Tenderness - Extremities Exam Extremities exam: Positive for: normal inspection. Negative for: calf tenderness, pedal edema - Neurological Exam Neurological exam: Alert, Oriented x3 - Skin Skin Exam: Dry, Intact, Normal Color Results - Vital Signs Recent Vital Signs: Last Vital Signs Temp 97.9 F 07/12/17 09:00 Pulse 60 07/12/17 09:00 Resp 18 07/12/17 09:00 BP 147/70 07/12/17 09:00 Pulse Ox 99 07/12/17 09:00 - Labs Result Diagrams: 07/12/17 06:05 07/12/17 06:05 Labs: Laboratory Results - last 24 hr 07/11/17 07/12/17 07/12/17 21:04 05:20 06:05 WBC RBC Hgb Hct MCV MCH MCHC RDW Plt Count ESR Sodium 139 Potassium 4.0 Chloride 105 Carbon Dioxide 22 Anion Gap 16 BUN 17 Creatinine 0.9 Est GFR ( Amer) > 60 Est GFR (Non-Af Amer) > 60 POC Glucose (mg/dL) 103 116 H Random Glucose 106 H Calcium 9.6 Total Bilirubin 0.4 AST 22 ALT 30 Alkaline Phosphatase 69 Troponin I Total Protein 6.6 Albumin 3.7 Globulin 2.9 Albumin/Globulin Ratio 1.3 07/12/17 07/12/17 06:05 09:20 WBC 5.8 RBC 3.55 L Hgb 10.3 L Hct 31.1 L MCV 87.6 MCH 29.1 MCHC 33.2 RDW 14.6 H Plt Count 181 ESR 50 H Sodium Potassium Chloride Carbon Dioxide Anion Gap BUN Creatinine Est GFR ( Amer) Est GFR (Non-Af Amer) POC Glucose (mg/dL) Random Glucose Calcium Total Bilirubin AST ALT Alkaline Phosphatase Troponin I < 0.0120 Total Protein Albumin Globulin Albumin/Globulin Ratio Assessment & Plan - Assessment and Plan (Free Text) Assessment: 81 y/o F with PMHx that includes HTN, DM type 2, CAD, s/p CABG, and arrhythmia s /p pacemaker admitted in telemetry due to chest pain and abdominal pain. Plan: Abdominal pain radiating to chest afebrile, no leukocytosis Most likely 2/2 nonspecific enteritis, but because patient's risk factors we admit for observation c/w cipro and flagyl IV fluids while NPO advance to liquid diet for breakfast, and then advance as tolerated -Abdominal CT showed nonspecific enteritis involving small bowel CAD s/p CABG asymptomatic f/u troponin, first Troponin I neg -EKG at ED showed no acute ST-T wave changes CXR showed no active disease Cardiology on board HTN controlled held home meds for now, pt NPO DM type 2 controlled held home meds for now DVT prophylaxis SCDs for now - Date & Time Date: 07/12/17 Time: 10:00
--- NOTE | 2017-07-12 11:04 | CARD ---
APPROVED REPORT EKG Measurement Heart [id number] [id number] <Conclusion> Normal sinus rhythm with sinus arrhythmia Nonspecific ST and T wave abnormality Abnormal ECG
[2017-07-12] MEDS: Ciprofloxacin 400mg/200ml D5W 400 MG/200 ML BAG IVPB SCH (11:29)
[2017-07-12 12:19] VITALS: O2SAT 97
--- NOTE | 2017-07-12 15:43 | CP.PCM.PCO ---
Assessment & Plan - Assessment and Plan (Free Text) Assessment: 81 yr old F admitted with chest pain/ enteritis pt. doing well tolerating bland diet denies sob, cp, abd pain, n/v/diarrhea fever or chills daughter at bedside e rx sent to [facility] pharmacy (pt. outpt pharmacy) cont. cipro/ flagyl x 10 days pt. instructed to f/u with pmd in 1 week pt. cleared for discharge to home today by
[2017-07-12 15:49] VITALS: BP 134/76; PULSE 69; RESP 20; TEMP 97.7
--- NOTE | 2017-07-14 09:56 | CARD ---
APPROVED REPORT EKG Measurement Heart [id number] [id number] <Conclusion> Atrial-paced rhythm ST & T wave abnormality, consider anterior ischemia Abnormal ECG
== END 2017-07-12 16:30 | disposition home or self-care (01) ==
LOC: H.ER 11:31 → INTOOBSV 15:38 → H.ERHOLD 15:38 → H.TEL 19:04
PROVIDERS: ADMIT Family Medicine; ATTEND Family Medicine
DX: K52.9 Noninfective gastroenteritis and colitis, unspecified (principal); E03.9 Hypothyroidism, unspecified; E11.9 Type 2 diabetes mellitus without complications; E78.00 Pure hypercholesterolemia, unspecified; I10 Essential (primary) hypertension; I25.10 Atherosclerotic heart disease of native coronary artery without angina pectoris; K57.30 Diverticulosis of large intestine without perforation or abscess without bleeding; K59.00 Constipation, unspecified; S22.31XA Fracture of one rib, right side, initial encounter for closed fracture; Z79.01 Long term (current) use of anticoagulants; Z95.0 Presence of cardiac pacemaker; Z95.1 Presence of aortocoronary bypass graft; F32.9 Major depressive disorder, single episode, unspecified; F41.9 Anxiety disorder, unspecified; K29.70 Gastritis, unspecified, without bleeding; M19.90 Unspecified osteoarthritis, unspecified site
CPT/HCPCS: 36415; 70450; 71020; 74177; 80053; 81003; 82948; 83690; 84484; 85025; 85027; 85610; 85651; 85730; 93005; 96360; 99285; C9113; G0378; J0744; J7120; Q9967

== ENCOUNTER 2017-07-19 14:28 | Observation (INO) | payer MEDICARE, OTHER ==
[2017-07-19 14:28] VITALS: BMI 27.8
--- NOTE | 2017-07-19 16:08 | ED PDOC ---
Syncope/Near Syncope/Dizziness Time Seen by Provider: 07/19/17 14:30 Chief Complaint (Nursing): Dizziness/Lightheaded Chief Complaint (Provider): Dizziness/Lightheaded History Per: Patient History/Exam Limitations: no limitations Onset/Duration Of Symptoms: Days (x1) Current Symptoms Are (Timing): Still Present Additional Complaint(s): Erika Mcgraw is an 81 year old female with previous medical history of anxiety, bradycardia, hypertension, diabetes, and thyroid disease who presents to the emergency department for an evaluation of dizziness associated with weakness and one episode of vomiting, nausea and diffused abdominal pain ongoing for 1 day. Denied chest pain, fever, chills or recent illness. Patient stated she has been constipated for 2 days and began feeling weak around 13:45 today when her niece noted patient turned pale. Of note, patient was recently diagnosed with a bowel infection and is currently being treated with Ciprofloxin. PMD: Ishan Peters MD Past Medical History Reviewed: Historical Data, Nursing Documentation, Vital Signs Vital Signs: Last Vital Signs Temp 97.1 F L 07/19/17 14:31 Pulse 74 07/19/17 14:31 Resp 18 07/19/17 14:31 BP 144/80 07/19/17 14:31 Pulse Ox 100 07/19/17 14:31 - Medical History PMH: Anxiety, Arthritis, CAD, Depression, Diabetes (type II, takes Metformin), Diverticulitis, Gastritis, HTN, Hypercholesterolemia, Hypothyroidism Denies: Alzheimer's Disease, Atrial Fibrillation, Cardia Arrhythmia, CHF, Emphysema, HIV, Chronic Kidney Disease - Surgical History Surgical History: CABG, Cholecystectomy, Hernia Repair, Pacemaker, Tonsillectomy - Family History Family History: States: Unknown Family Hx - Social History Current smoker - smoking cessation education provided: No Alcohol: None Drugs: Denies - Home Medications Home Medications: Ambulatory Orders Medication Instructions Recorded Alogliptin Benzoate [Alogliptin] 25 mg PO QPM 07/11/17 Atorvastatin [Lipitor] 10 mg PO MWF 07/11/17 Carvedilol [Coreg] 3.125 mg PO Q12H 07/11/17 Dexlansoprazole [Dexilant] 60 mg PO DAILY 07/11/17 LORazepam [Ativan] 0.5 mg PO Q8H PRN 07/11/17 Levothyroxine [Synthroid] 88 mcg PO DAILY 07/11/17 Lubiprostone [Amitiza] 24 mcg PO DAILY 07/11/17 Metformin ER [Glucophage XR] 500 mg PO DAILY 07/11/17 Pioglitazone [Actos] 15 mg PO DAILY 07/11/17 Rivaroxaban [Xarelto] 20 mg PO QPM 07/11/17 Ciprofloxacin HCl [Cipro] 500 mg PO Q12 #20 tab 07/12/17 metroNIDAZOLE [Flagyl] 500 mg PO Q8 #30 tab 07/12/17 Escitalopram Oxalate [Lexapro] 5 mg PO QPM 07/19/17 - Allergies Allergies/Adverse Reactions: Allergies Allergy/AdvReac Type Severity Reaction Status Date / Time No Known Allergies Allergy Verified 07/11/17 12:05 Review of Systems ROS Statement: Except As Marked, All Systems Reviewed And Found Negative Constitutional: Positive for: Weakness. Negative for: Fever, Chills Gastrointestinal: Positive for: Nausea, Vomiting (x1), Abdominal Pain (difffused ), Constipation Skin: Positive for: Other (pallor per niece) Neurological: Positive for: Dizziness Physical Exam - Reviewed Nursing Documentation Reviewed: Yes Vital Signs Reviewed: Yes - Physical Exam Appears: Positive for: Well, Non-toxic, No Acute Distress Head Exam: Positive for: ATRAUMATIC, NORMAL INSPECTION, NORMOCEPHALIC Skin: Positive for: Normal Color Eye Exam: Positive for: Normal appearance, EOMI, PERRL. Negative for: Nystagmus Cardiovascular/Chest: Positive for: Regular Rate, Rhythm. Negative for: Chest Non Tender Respiratory: Positive for: Normal Breath Sounds. Negative for: Crackles, Rales , Rhonchi, Wheezing, Respiratory Distress Gastrointestinal/Abdominal: Positive for: Normal Exam, Bowel Sounds, Soft. Negative for: Tenderness Neurologic/Psych: Positive for: Alert, product assembler II-XII, Oriented - Laboratory Results Result Diagrams: 07/19/17 15:58 07/19/17 15:58 - ECG O2 Sat by Pulse Oximetry: 100 (RA) Pulse Ox Interpretation: Normal Medical Decision Making Medical Decision Making: Initial Impression: Presyncope Initial Plan: * Labs * Troponin I * CXR Time: 1648 --CXR FINDINGS: LUNGS: Minor bibasilar atelectasis felt be present PLEURA: No significant pleural effusion identified. No pneumothorax apparent. CARDIOVASCULAR: Sternotomy wires and CABG clips. Heart size is upper limits of normal. No change bipolar pacemaker. OSSEOUS STRUCTURES: No significant abnormalities. VISUALIZED UPPER ABDOMEN: Normal. OTHER FINDINGS: None. IMPRESSION: Minor bibasilar atelectasis. Time: 1650 --Labs: negative for Troponin. --EKG: NSR at [address] elevation. Time: 1700 --Discussed case with Dr. Peters pts pcp who advised patient be admitted to telemetry floor for further evaluation. Patient and family made aware and they are agreeable. pt given ASA. Scribe Attestation: Documented by Isa Momin, acting as a scribe for Tessie Mckeon MD. Provider Scribe Attestation: All medical record entries made by the Scribe were at my direction and personally dictated by me. I have reviewed the chart and agree that the record accurately reflects my personal performance of the history, physical exam, medical decision making, and the department course for this patient. I have also personally directed, reviewed, and agree with the discharge instructions and disposition. Disposition - Clinical Impression Clinical Impression: Dizzy spells, Pre-syncope - Patient ED Disposition Is Patient to be Admitted: Yes Discussed With : Ishan Peters Doctor Will See Patient In The: Hospital Counseled Patient/Family Regarding: Studies Performed, Diagnosis, Need For Followup - Disposition Disposition Time: 17:00 Condition: STABLE
[2017-07-19 16:18] LABS: BASO # 0.1 K/uL (0.0-0.2); BASO % 0.7 % (0.0-2.0); EOS # 0.1 K/uL (0.0-0.7); EOS % 1.1 % (0.0-4.0); HEMATOCRIT 31.5 % (34.0-47.0); LYMPH # 1.2 K/uL (1.0-4.3); LYMPH % 15.1 % (20.0-40.0); MEAN CELL VOLUME 87.6 fl (81.0-99.0); MEAN CORPUSCULAR HEMOGLOBIN 28.8 pg (27.0-31.0); MEAN CORPUSCULAR HGB CONC 32.9 g/dL (33.0-37.0); MEAN PLATELET VOLUME 8.1 fl (7.2-11.7); MONO # 0.5 K/uL (0.0-0.8); MONO % 6.1 % (0.0-10.0); NEUT # 6.1 K/uL (1.8-7.0); NRBC % 0.1 % (0.0-0.0); RED CELL DISTRIBUTION WIDTH 15.4 % (11.5-14.5); WHITE BLOOD COUNT 7.9 K/uL (4.8-10.8)
[2017-07-19 16:30] LABS: ALB/GLOB RATIO 1.3 (1.0-2.1); ALKALINE PHOSPHATASE 69 U/L (38-126); ALT/SGPT 22 U/L (9-52); AST/SGOT 28 U/L (14-36); BILIRUBIN,TOTAL 0.5 mg/dl (0.2-1.3); BLOOD UREA NITROGEN 21 mg/dl (7-17); CALCIUM 9.6 mg/dL (8.4-10.2); CARBON DIOXIDE 19 mmol/L (22-30); CHLORIDE 102 mmol/L (98-107); GFR AFRICAN-AMERICAN 58; GLUCOSE,RANDOM 161 mg/dL (65-105); POTASSIUM 4.5 MMOL/L (3.6-5.0); SODIUM 134 mmol/l (132-148)
--- NOTE | 2017-07-19 16:50 | RAD ---
HISTORY: presyncope COMPARISON: 07/11/2017 TECHNIQUE: Chest PA and lateral FINDINGS: LUNGS: Minor bibasilar atelectasis felt be present PLEURA: No significant pleural effusion identified. No pneumothorax apparent. CARDIOVASCULAR: Sternotomy wires and CABG clips. Heart size is upper limits of normal. No change bipolar pacemaker. OSSEOUS STRUCTURES: No significant abnormalities. VISUALIZED UPPER ABDOMEN: Normal. OTHER FINDINGS: None. IMPRESSION: Minor bibasilar atelectasis.
[2017-07-19] MEDS ORDERED: Sodium Chloride 0.9% 1,000 ML IV STA ×2 (17:21→20:53)
[2017-07-19] MEDS ORDERED: Aspirin 325 mg EC Tablets PO ONE (18:06)
[2017-07-20] MEDS ORDERED: Levothyroxine 88 MCG TAB PO SCH (06:30)
[2017-07-20 08:11] VITALS: RESP 18
[2017-07-20] MEDS ORDERED: Pantoprazole 40 mg EC Tab PO SCH (09:00)
[2017-07-20 11:35] LABS: HEMATOCRIT 28.9 % (34.0-47.0); MEAN CELL VOLUME 88.4 fl (81.0-99.0); MEAN CORPUSCULAR HEMOGLOBIN 29.2 pg (27.0-31.0); WHITE BLOOD COUNT 5.1 K/uL (4.8-10.8)
[2017-07-20 11:45] LABS: BLOOD UREA NITROGEN 15 mg/dl (7-17); CARBON DIOXIDE 23 mmol/L (22-30); CHLORIDE 107 mmol/L (98-107); GFR AFRICAN-AMERICAN > 60; GLUCOSE,RANDOM 156 mg/dL (65-105); POTASSIUM 4.1 MMOL/L (3.6-5.0); SODIUM 138 mmol/l (132-148)
[2017-07-20 12:32] VITALS: BP 115/65; PULSE 64; TEMP 98.1; O2SAT 97
--- NOTE | 2017-07-20 15:47 | CP.PCM.HP ---
History of Present Illness - History of Present Illness History of Present Illness: 81 year old female with previous medical history of anxiety, bradycardia, hypertension, diabetes, and thyroid disease who presents to the emergency department yesterday c/o one episode of a soft large bowel movement, associated with weakness and dizziness after defecation, and one episode of vomiting, when she was in ER. Denied chest pain, fever, chills or recent illness. Patient stated she has been constipated for 2 days, and she took Miralax to move her bowels. Pt was recently diagnosed with a bowel infection and [facility], which she has been taken for 7 days. patient seen and examined with attending this morning Patient tolerating PO, denies chills, N/V, abdominal pain or other episode of soft stools. Denies blood in stools. Present on Admission - Present on Admission Any Indicators Present on Admission: No History of DVT/PE: No History of Uncontrolled Diabetes: No Urinary Catheter: No Decubitus Ulcer Present: No Review of Systems - Review of Systems All systems: reviewed and no additional remarkable complaints except (as per HPI ) Past Patient History - Infectious Disease Hx of Infectious Diseases: None - Tetanus Immunizations Tetanus Immunization: Unknown - Past Medical History & Family History Past Medical History?: Yes - Past Social History Smoking Status: Never Smoked - CARDIAC Hx Atrial Fibrillation: No Hx Cardia Arrhythmia: No Hx Congestive Heart Failure: No Hx Hypercholesterolemia: Yes Hx Hypertension: Yes Hx Pacemaker: Yes - PULMONARY Hx Emphysema: No - NEUROLOGICAL Hx Alzheimer's Disease: No - HEENT Hx HEENT Problems: No - RENAL Hx Chronic Kidney Disease: No - ENDOCRINE/METABOLIC Hx Hypothyroidism: Yes - HEMATOLOGICAL/ONCOLOGICAL Hx Human Immunodeficiency Virus (HIV): No - INTEGUMENTARY Hx Dermatological Problems: No - MUSCULOSKELETAL/RHEUMATOLOGICAL Hx Falls: No - GASTROINTESTINAL Hx Diverticulitis: Yes Hx Gastritis: Yes - GENITOURINARY/GYNECOLOGICAL Hx Genitourinary Disorders: No - PSYCHIATRIC Hx Substance Use: No - SURGICAL HISTORY Hx Cholecystectomy: Yes Hx Coronary Artery Bypass Graft: Yes Hx Tonsillectomy: Yes - ANESTHESIA Hx Anesthesia: Yes Hx Anesthesia Reactions: No Hx Malignant Hyperthermia: No Meds Allergies/Adverse Reactions: Allergies Allergy/AdvReac Type Severity Reaction Status Date / Time No Known Allergies Allergy Verified 07/11/17 12:05 Physical Exam - Constitutional Appears: No Acute Distress - ENT Exam ENT Exam: Mucous Membranes Moist - Respiratory Exam Respiratory Exam: Clear to Auscultation Bilateral, NORMAL BREATHING PATTERN - Cardiovascular Exam Cardiovascular Exam: REGULAR RHYTHM, +S1, +S2 - GI/Abdominal Exam GI & Abdominal Exam: Normal Bowel Sounds, Soft. absent: Distended, Firm, Guarding, Tenderness - Extremities Exam Extremities exam: Positive for: normal inspection. Negative for: calf tenderness, pedal edema - Neurological Exam Neurological exam: Alert, Oriented x3 - Skin Skin Exam: Dry, Intact, Normal Color Results - Vital Signs Recent Vital Signs: Last Vital Signs Temp 98.1 F 07/20/17 12:32 Pulse 64 07/20/17 12:32 Resp 18 07/20/17 12:32 BP 115/65 07/20/17 12:32 Pulse Ox 97 07/20/17 12:32 - Labs Result Diagrams: 07/20/17 11:30 07/20/17 11:30 Labs: Laboratory Results - last 24 hr 07/19/17 07/20/17 07/20/17 21:33 00:08 05:09 WBC RBC Hgb Hct MCV MCH MCHC RDW Plt Count Sodium Potassium Chloride Carbon Dioxide Anion Gap BUN Creatinine Est GFR ( Amer) Est GFR (Non-Af Amer) POC Glucose (mg/dL) 80 94 Random Glucose Calcium Troponin I < 0.0120 07/20/17 07/20/17 07/20/17 08:50 11:23 11:30 WBC 5.1 RBC 3.27 L Hgb 9.5 L Hct 28.9 L MCV 88.4 MCH 29.2 MCHC 33.0 RDW 15.0 H Plt Count 164 Sodium Potassium Chloride Carbon Dioxide Anion Gap BUN Creatinine Est GFR ( Amer) Est GFR (Non-Af Amer) POC Glucose (mg/dL) 187 H Random Glucose Calcium Troponin I < 0.0120 07/20/17 11:30 WBC RBC Hgb Hct MCV MCH MCHC RDW Plt Count Sodium 138 Potassium 4.1 Chloride 107 Carbon Dioxide 23 Anion Gap 13 BUN 15 Creatinine 0.9 Est GFR ( Amer) > 60 Est GFR (Non-Af Amer) > 60 POC Glucose (mg/dL) Random Glucose 156 H Calcium 9.0 Troponin I Assessment & Plan - Assessment and Plan (Free Text) Plan: Diarrhea, and vomiting -admit for obs -one reported episode after she took Miralax -asymptomatic today, her symptoms resolved, and tolerating PO without N/V, afebrile, and VS WNL -completed 7 days of cipro and flagyl -consider DC home and f/u with PMD -troponin I x 3 neg h/o CAD s/p CABG asymptomatic c/w home meds HTN controlled c/w home meds DM type 2 controlled c/w home meds - Date & Time Date: 07/20/17 Time: 07:45
--- NOTE | 2017-07-20 16:02 | CP.PCM.DIS ---
Provider - Provider Date of Admission: 07/19/17 17:00 Attending physician: Ishan Peters MD Time Spent in preparation of Discharge (in minutes): 30 Diagnosis - Discharge Diagnosis (1) Vomiting and diarrhea Status: Acute Comment: one episode. Resolved. Tolerating PO. Stop Miralax for constipation. C/ W Colace 200 mg daily for constipation and f/u with PMD next week. (2) HTN (hypertension) Status: Chronic Comment: controlled. F/u with PMD (3) Diabetes mellitus type 2 in nonobese Status: Chronic Comment: controlled. 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 C/w current meds and f/u with PMD and cardiology. ER precautions given Hospital Course - Lab Results Lab Results: Most Recent Lab Values WBC 5.1 K/uL (4.8-10.8) 07/20/17 11:30 RBC 3.27 Mil/uL (3.80-5.20) L 07/20/17 11:30 Hgb 9.5 g/dL (12.0-16.0) L 07/20/17 11:30 Hct 28.9 % (34.0-47.0) L 07/20/17 11:30 MCV 88.4 fl (81.0-99.0) 07/20/17 11:30 MCH 29.2 pg (27.0-31.0) 07/20/17 11:30 MCHC 33.0 g/dL (33.0-37.0) 07/20/17 11:30 RDW 15.0 % (11.5-14.5) H 07/20/17 11:30 Plt Count 164 K/uL (130-400) 07/20/17 11:30 MPV 8.1 fl (7.2-11.7) 07/19/17 15:58 Neut % (Auto) 77.0 % (50.0-75.0) H 07/19/17 15:58 Lymph % (Auto) 15.1 % (20.0-40.0) L 07/19/17 15:58 [place] % (Auto) 6.1 % (0.0-10.0) 07/19/17 15:58 Eos % (Auto) 1.1 % (0.0-4.0) 07/19/17 15:58 Baso % (Auto) 0.7 % (0.0-2.0) 07/19/17 15:58 Neut # 6.1 K/uL (1.8-7.0) 07/19/17 15:58 Lymph # 1.2 K/uL (1.0-4.3) 07/19/17 15:58 [place] # 0.5 K/uL (0.0-0.8) 07/19/17 15:58 Eos # 0.1 K/uL (0.0-0.7) 07/19/17 15:58 Baso # 0.1 K/uL (0.0-0.2) 07/19/17 15:58 Sodium 138 mmol/l (132-148) 07/20/17 11:30 Potassium 4.1 MMOL/L (3.6-5.0) 07/20/17 11:30 Chloride 107 mmol/L (98-107) 07/20/17 11:30 Carbon Dioxide 23 mmol/L (22-30) 07/20/17 11:30 Anion Gap 13 (10-20) 07/20/17 11:30 BUN 15 mg/dl (7-17) 07/20/17 11:30 Creatinine 0.9 mg/dL (0.7-1.2) 07/20/17 11:30 Est GFR ( Amer) > 60 07/20/17 11:30 Est GFR (Non-Af Amer) > 60 07/20/17 11:30 POC Glucose (mg/dL) 187 mg/dL (65-110) H 07/20/17 11:23 Random Glucose 156 mg/dL (65-105) H 07/20/17 11:30 Calcium 9.0 mg/dL (8.4-10.2) 07/20/17 11:30 Total Bilirubin 0.5 mg/dl (0.2-1.3) 07/19/17 15:58 AST 28 U/L (14-36) 07/19/17 15:58 ALT 22 U/L (9-52) 07/19/17 15:58 Alkaline Phosphatase 69 U/L (38-126) 07/19/17 15:58 Troponin I < 0.0120 ng/mL (0.00-0.120) 07/20/17 08:50 Total Protein 7.0 G/DL (6.3-8.2) 07/19/17 15:58 Albumin 4.0 g/dL (3.5-5.0) 07/19/17 15:58 Globulin 3.0 gm/dL (2.2-3.9) 07/19/17 15:58 Albumin/Globulin Ratio 1.3 (1.0-2.1) 07/19/17 15:58 Discharge Exam - Head Exam Head Exam: ATRAUMATIC, NORMAL INSPECTION, NORMOCEPHALIC Discharge Plan - Follow Up Plan Condition: STABLE Disposition: HOME/ ROUTINE
== END 2017-07-20 13:45 | disposition home health service (06) ==
LOC: H.ER 14:28 → H.ERHOLD 17:00 → H.TEL 18:48
PROVIDERS: ADMIT Family Medicine; ATTEND Family Medicine
DX: R11.10 Vomiting, unspecified (principal); R19.7 Diarrhea, unspecified; I10 Essential (primary) hypertension; E11.9 Type 2 diabetes mellitus without complications; I25.810 Atherosclerosis of coronary artery bypass graft(s) without angina pectoris; Z94.1 Heart transplant status; K59.00 Constipation, unspecified; E03.9 Hypothyroidism, unspecified; E78.00 Pure hypercholesterolemia, unspecified; F32.9 Major depressive disorder, single episode, unspecified; F41.9 Anxiety disorder, unspecified; K29.70 Gastritis, unspecified, without bleeding
CPT/HCPCS: 36415; 71020; 80048; 80053; 82948; 84484; 85025; 85027; 99285; G0378; J7040

== ENCOUNTER 2017-12-24 11:21 | Observation (INO) | payer MEDICARE, OTHER ==
[2017-12-24 11:21] VITALS: BMI 27.8
[2017-12-24] MEDS ORDERED: Sodium Chloride 0.9% 500 ML IV STA (11:49)
--- NOTE | 2017-12-24 11:53 | ED PDOC ---
HPI: General Adult Time Seen by Provider: 12/24/17 11:34 Chief Complaint (Nursing): Chest Pain Chief Complaint (Provider): chest pain History Per: Patient History/Exam Limitations: no limitations Onset/Duration Of Symptoms: Days (today) Additional History Per: Patient Additional Complaint(s): Chest pain, weakness all over, dizziness, mild headache. Headache is not the worst in her life. No neck pain. Headache similar to previous. No dyspnea. No fever, cough. Was at [employer] when it started. Has palpitations. Dizziness like light-headed. Past Medical History Reviewed: Nursing Documentation, Vital Signs Vital Signs: Last Vital Signs Temp 98.1 F 12/24/17 11:23 Pulse 96 H 12/24/17 11:23 Resp 18 12/24/17 11:23 BP 146/75 12/24/17 11:23 Pulse Ox 100 12/24/17 14:29 - Medical History PMH: Anxiety, Arthritis, CAD, Depression, Diabetes (type II, takes Metformin), Diverticulitis, Gastritis, HTN, Hypercholesterolemia, Hypothyroidism Denies: Alzheimer's Disease, Atrial Fibrillation, Cardia Arrhythmia, CHF, Emphysema, HIV, Chronic Kidney Disease - Surgical History Surgical History: CABG, Cholecystectomy, Hernia Repair, Pacemaker, Tonsillectomy - Family History Family History: States: Unknown Family Hx - Living Arrangements Living Arrangements: With Family - Social History Alcohol: None Drugs: Denies - Home Medications Home Medications: Ambulatory Orders Medication Instructions Recorded Alogliptin Benzoate [Alogliptin] 25 mg PO QPM 07/11/17 Atorvastatin [Lipitor] 10 mg PO MWF 07/11/17 Carvedilol [Coreg] 3.125 mg PO Q12H 07/11/17 Dexlansoprazole [Dexilant] 60 mg PO DAILY 07/11/17 LORazepam [Ativan] 0.5 mg PO Q8H PRN 07/11/17 Levothyroxine [Synthroid] 88 mcg PO DAILY 07/11/17 Lubiprostone [Amitiza] 24 mcg PO DAILY 07/11/17 Metformin ER [Glucophage XR] 500 mg PO DAILY 07/11/17 Pioglitazone [Actos] 15 mg PO DAILY 07/11/17 Rivaroxaban [Xarelto] 20 mg PO QPM 07/11/17 Escitalopram Oxalate [Lexapro] 5 mg PO QPM 07/19/17 - Allergies Allergies/Adverse Reactions: Allergies Allergy/AdvReac Type Severity Reaction Status Date / Time No Known Allergies Allergy Verified 07/11/17 12:05 Review of Systems ROS Statement: Except As Marked, All Systems Reviewed And Found Negative Constitutional: Positive for: Weakness Cardiovascular: Positive for: Chest Pain, Light Headedness Respiratory: Negative for: Shortness of Breath Neurological: Positive for: Weakness, Headache, Dizziness Physical Exam - Reviewed Nursing Documentation Reviewed: Yes Vital Signs Reviewed: Yes - Physical Exam Appears: Positive for: Non-toxic, No Acute Distress Head Exam: Positive for: ATRAUMATIC, NORMAL INSPECTION, NORMOCEPHALIC Skin: Positive for: Normal Color, Warm, DRY Eye Exam: Positive for: Normal appearance, EOMI, PERRL. Negative for: Periorbital swelling, Periorbital tenderness ENT: Positive for: Normal ENT Inspection. Negative for: Nasal Congestion, Pharyngeal Erythema Neck: Positive for: Normal, Painless ROM, Supple Cardiovascular/Chest: Positive for: Regular Rate, Rhythm Respiratory: Positive for: CNT, Normal Breath Sounds Gastrointestinal/Abdominal: Positive for: Normal Exam, Bowel Sounds, Soft. Negative for: Tenderness Back: Positive for: Normal Inspection. Negative for: L CVA Tenderness, R CVA Tenderness Extremity: Positive for: Normal ROM. Negative for: Tenderness, Pedal Edema Neurologic/Psych: Positive for: Alert, bleacher lard II-XII, Oriented. Negative for: Motor/Sensory Deficits - Laboratory Results Result Diagrams: 12/24/17 11:58 12/24/17 11:58 Interpretation Of Abn Labs: 19 bun - ECG ECG: Positive for: Interpreted By Me, Viewed By Me ECG Rhythm: Positive for: Sinus Rhythm, Nonspecific Changes O2 Sat by Pulse Oximetry: 100 - Radiology X-Ray: Read By Radiologist X-Ray Interpretation: No Acute Disease - CT Scan/US ct Other Rad Studies (CT/US): Read By Radiologist Other Rad Interpretation: no acute - Progress ED Course And Treament: 1433: Pain free. Tolerated po. Spoke to Dr. Peters. Will obs. Well known to him. Takes xeralto, hold off on asa. Disposition - Clinical Impression Clinical Impression: Acute chest pain, Dizzy spells - Patient ED Disposition Is Patient to be Admitted: Yes Counseled Patient/Family Regarding: Studies Performed, Diagnosis - Disposition Disposition Time: 14:00 Condition: FAIR - Pt Status Changed To: Hospital Disposition Of: Observation - POA Present On Arrival: None
[2017-12-24 12:05] LABS: BASO # 0.1 K/uL (0.0-0.2); BASO % 1.1 % (0.0-2.0); EOS # 0.2 K/uL (0.0-0.7); EOS % 2.9 % (0.0-4.0); HEMOGLOBIN 11.4 g/dL (12.0-16.0); LYMPH # 1.7 K/uL (1.0-4.3); LYMPH % 24.1 % (20.0-40.0); MEAN CELL VOLUME 88.1 fl (81.0-99.0); MEAN CORPUSCULAR HEMOGLOBIN 28.8 pg (27.0-31.0); MEAN CORPUSCULAR HGB CONC 32.7 g/dL (33.0-37.0); MEAN PLATELET VOLUME 7.5 fl (7.2-11.7); MONO # 0.4 K/uL (0.0-0.8); MONO % 5.9 % (0.0-10.0); NEUT # 4.8 K/uL (1.8-7.0); RBC 3.96 Mil/uL (3.80-5.20); RED CELL DISTRIBUTION WIDTH 14.9 % (11.5-14.5); WHITE BLOOD COUNT 7.2 K/uL (4.8-10.8)
--- NOTE | 2017-12-24 12:14 | RAD ---
HISTORY: dyspnea COMPARISON: Chest radiograph dated 07/19/2017. FINDINGS: LUNGS: Stable chronic prominence of the bilateral interstitial markings. No focal consolidation. PLEURA: No significant pleural effusion identified, no pneumothorax apparent. CARDIOVASCULAR: Left subclavian access pacemaker redemonstrated. Prior sternotomy with sternal wires and surgical clips redemonstrated. Atherosclerotic aortic calcifications. Cardiomediastinal silhouette stably prominent. OSSEOUS STRUCTURES: Unchanged. VISUALIZED UPPER ABDOMEN: Right upper quadrant surgical clips redemonstrated. OTHER FINDINGS: None. IMPRESSION: Stable chronic prominence of the bilateral interstitial markings. No focal consolidation or pleural effusion.
[2017-12-24 12:15] LABS: ALB/GLOB RATIO 1.2 (1.0-2.1); ALBUMIN 4.2 g/dL (3.5-5.0); CALCIUM 9.8 mg/dL (8.4-10.2); GFR AFRICAN-AMERICAN > 60; GFR NON-AFRICAN AMERICAN 60
[2017-12-24 12:19] LABS: INR 1.2 (0.9-1.2); PARTIAL THROMBOPLASTIN TIME 34.2 Seconds (25.6-37.1); PROTHROMBIN TIME 12.9 Seconds (9.8-13.1)
[2017-12-24 12:27] LABS: B-TYPE NATRIURETIC PEPTIDE 545 pg/ml (0-900)
[2017-12-24 12:43] LABS: ALT/SGPT 21 U/L (9-52); AST/SGOT 28 U/L (14-36)
[2017-12-24 12:49] LABS: BLOOD UREA NITROGEN 19 mg/dl (7-17)
--- NOTE | 2017-12-24 13:32 | CT ---
PROCEDURE: CT HEAD WITHOUT CONTRAST. HISTORY: headache COMPARISON: CT head dated 07/11/2017. TECHNIQUE: Axial computed tomography images were obtained through the head/brain without intravenous contrast. Radiation dose: Total exam DLP = 870.0 mGy-cm. This CT exam was performed using one or more of the following dose reduction techniques: Automated exposure control, adjustment of the mA and/or kV according to patient size, and/or use of iterative reconstruction technique. FINDINGS: HEMORRHAGE: No intracranial hemorrhage. BRAIN: No mass effect or edema. Mild atrophy. Mild chronic periventricular matter microvascular ischemic changes. VENTRICLES: Unremarkable. No hydrocephalus. CALVARIUM: Unremarkable. PARANASAL SINUSES: Unremarkable as visualized. No significant inflammatory changes. MASTOID AIR CELLS: Unremarkable as visualized. No inflammatory changes. OTHER FINDINGS: None. IMPRESSION: No acute intracranial pathology.
[2017-12-25] MEDS ORDERED: Levothyroxine 88 MCG TAB PO SCH (06:30)
--- NOTE | 2017-12-25 07:57 | CARD ---
APPROVED REPORT EKG Measurement Heart [id number] <Conclusion> Sinus rhythm with premature atrial complexes Nonspecific ST and T wave abnormality Abnormal ECG
[2017-12-25] MEDS ORDERED: Pantoprazole 40 mg EC Tab PO SCH (09:00)
[2017-12-25 09:30] VITALS: TEMP 97.1; O2SAT 96
[2017-12-25] MEDS ORDERED: Pantoprazole 40 mg EC Tab PO ONE (10:52)
--- NOTE | 2017-12-25 11:17 | CP.PCM.HP ---
History of Present Illness - History of Present Illness History of Present Illness: This is an 82 y/o female with hx of CAD HTN, anxiety,hypothyroidism, DM 2, hyperlipidemia and arthritis, admitted for persistent chest pain, retrosternal for few hours. She was at rest when chest pain started. She took all her meds but sx persisted hence sought ER eval. She had multiple admissions to ER for chest pain and recent work ups were all negative, She follows up with Dr Rawls. Present on Admission - Present on Admission Any Indicators Present on Admission: No History of DVT/PE: No History of Uncontrolled Diabetes: No Urinary Catheter: No Decubitus Ulcer Present: No Review of Systems - Cardiovascular Cardiovascular: Chest Pain, Chest Pain at Rest Past Patient History - Infectious Disease Hx of Infectious Diseases: None - Tetanus Immunizations Tetanus Immunization: Unknown - Past Medical History & Family History Past Medical History?: Yes - Past Social History Alcohol: None Drugs: Denies - CARDIAC Hx Atrial Fibrillation: No Hx Cardia Arrhythmia: No Hx Congestive Heart Failure: No Hx Hypercholesterolemia: Yes Hx Hypertension: Yes Hx Pacemaker: Yes - PULMONARY Hx Emphysema: No - NEUROLOGICAL Hx Alzheimer's Disease: No - HEENT Hx HEENT Problems: No - RENAL Hx Chronic Kidney Disease: No - ENDOCRINE/METABOLIC Hx Hypothyroidism: Yes - HEMATOLOGICAL/ONCOLOGICAL Hx Human Immunodeficiency Virus (HIV): No - INTEGUMENTARY Hx Dermatological Problems: No - MUSCULOSKELETAL/RHEUMATOLOGICAL Hx Arthritis: Yes - GASTROINTESTINAL Hx Diverticulitis: Yes Hx Gastritis: Yes - GENITOURINARY/GYNECOLOGICAL Hx Genitourinary Disorders: No - PSYCHIATRIC Hx Anxiety: Yes Hx Depression: Yes - SURGICAL HISTORY Hx Cholecystectomy: Yes Hx Coronary Artery Bypass Graft: Yes Hx Tonsillectomy: Yes - ANESTHESIA Hx Anesthesia: Yes Hx Anesthesia Reactions: No Hx Malignant Hyperthermia: No Meds Allergies/Adverse Reactions: Allergies Allergy/AdvReac Type Severity Reaction Status Date / Time No Known Allergies Allergy Verified 07/11/17 12:05 Physical Exam - Head Exam Head Exam: NORMAL INSPECTION - Eye Exam Eye Exam: Normal appearance - ENT Exam ENT Exam: Mucous Membranes Moist - Respiratory Exam Respiratory Exam: Clear to Auscultation Bilateral - Cardiovascular Exam Cardiovascular Exam: REGULAR RHYTHM - GI/Abdominal Exam GI & Abdominal Exam: Normal Bowel Sounds - Extremities Exam Extremities exam: Positive for: normal inspection - Neurological Exam Neurological exam: CN II-XII Intact, Oriented x3 Results - Vital Signs Recent Vital Signs: Last Vital Signs Temp 97.1 F L 12/25/17 09:29 Pulse 67 12/25/17 09:29 Resp 16 12/25/17 09:29 BP 127/70 12/25/17 09:29 Pulse Ox 96 12/25/17 09:29 - Labs Result Diagrams: 12/24/17 11:58 12/24/17 11:58 Labs: Laboratory Results - last 24 hr 12/24/17 12/24/17 12/24/17 11:58 11:58 11:58 WBC 7.2 RBC 3.96 Hgb 11.4 L Hct 34.9 MCV 88.1 MCH 28.8 MCHC 32.7 L RDW 14.9 H Plt Count 201 MPV 7.5 Neut % (Auto) 66.0 Lymph % (Auto) 24.1 [place] % (Auto) 5.9 Eos % (Auto) 2.9 Baso % (Auto) 1.1 Neut # (Auto) 4.8 Lymph # (Auto) 1.7 [place] # (Auto) 0.4 Eos # (Auto) 0.2 Baso # (Auto) 0.1 PT 12.9 INR 1.2 APTT 34.2 Sodium 139 Potassium 5.2 H Chloride 103 Carbon Dioxide 24 Anion Gap 17 BUN 19 H Creatinine 0.9 Est GFR ( Amer) > 60 Est GFR (Non-Af Amer) 60 Random Glucose 92 Calcium 9.8 Total Bilirubin 0.7 AST 28 ALT 21 Alkaline Phosphatase 82 Troponin I < 0.0120 NT-Pro-B Natriuret Pep 545 Total Protein 7.8 Albumin 4.2 Globulin 3.6 Albumin/Globulin Ratio 1.2 12/25/17 10:00 WBC RBC Hgb Hct MCV MCH MCHC RDW Plt Count MPV Neut % (Auto) Lymph % (Auto) [place] % (Auto) Eos % (Auto) Baso % (Auto) Neut # (Auto) Lymph # (Auto) [place] # (Auto) Eos # (Auto) Baso # (Auto) PT INR APTT Sodium Potassium Chloride Carbon Dioxide Anion Gap BUN Creatinine Est GFR ( Amer) Est GFR (Non-Af Amer) Random Glucose Calcium Total Bilirubin AST ALT Alkaline Phosphatase Troponin I < 0.0120 NT-Pro-B Natriuret Pep Total Protein Albumin Globulin Albumin/Globulin Ratio Assessment & Plan (1) Acute chest pain Status: Acute (2) Coronary artery disease Status: Acute (3) Anxiety disorder Status: Acute (4) Hypothyroidism Status: Acute (5) Diabetes mellitus type 2 in nonobese Status: Chronic (6) HTN (hypertension) Status: Chronic - Assessment and Plan (Free Text) Plan: Cont meds troponin q 8 x 3 Cardiology eval tylenol oxygen xanax nitro if needed.
--- NOTE | 2017-12-25 11:24 | CP.PCM.DIS ---
Provider - Provider Date of Admission: 12/24/17 14:36 Attending physician: Ishan Peters MD Time Spent in preparation of Discharge (in minutes): 30 Hospital Course - Lab Results Lab Results: Most Recent Lab Values WBC 7.2 K/uL (4.8-10.8) 12/24/17 11:58 RBC 3.96 Mil/uL (3.80-5.20) 12/24/17 11:58 Hgb 11.4 g/dL (12.0-16.0) L 12/24/17 11:58 Hct 34.9 % (34.0-47.0) 12/24/17 11:58 MCV 88.1 fl (81.0-99.0) 12/24/17 11:58 MCH 28.8 pg (27.0-31.0) 12/24/17 11:58 MCHC 32.7 g/dL (33.0-37.0) L 12/24/17 11:58 RDW 14.9 % (11.5-14.5) H 12/24/17 11:58 Plt Count 201 K/uL (130-400) 12/24/17 11:58 MPV 7.5 fl (7.2-11.7) 12/24/17 11:58 Neut % (Auto) 66.0 % (50.0-75.0) 12/24/17 11:58 Lymph % (Auto) 24.1 % (20.0-40.0) 12/24/17 11:58 [place] % (Auto) 5.9 % (0.0-10.0) 12/24/17 11:58 Eos % (Auto) 2.9 % (0.0-4.0) 12/24/17 11:58 Baso % (Auto) 1.1 % (0.0-2.0) 12/24/17 11:58 Neut # (Auto) 4.8 K/uL (1.8-7.0) 12/24/17 11:58 Lymph # (Auto) 1.7 K/uL (1.0-4.3) 12/24/17 11:58 [place] # (Auto) 0.4 K/uL (0.0-0.8) 12/24/17 11:58 Eos # (Auto) 0.2 K/uL (0.0-0.7) 12/24/17 11:58 Baso # (Auto) 0.1 K/uL (0.0-0.2) 12/24/17 11:58 PT 12.9 Seconds (9.8-13.1) 12/24/17 11:58 INR 1.2 (0.9-1.2) 12/24/17 11:58 APTT 34.2 Seconds (25.6-37.1) 12/24/17 11:58 Sodium 139 mmol/l (132-148) 12/24/17 11:58 Potassium 5.2 MMOL/L (3.6-5.0) H 12/24/17 11:58 Chloride 103 mmol/L (98-107) 12/24/17 11:58 Carbon Dioxide 24 mmol/L (22-30) 12/24/17 11:58 Anion Gap 17 (10-20) 12/24/17 11:58 BUN 19 mg/dl (7-17) H 12/24/17 11:58 Creatinine 0.9 mg/dl (0.7-1.2) 12/24/17 11:58 Est GFR ( Amer) > 60 12/24/17 11:58 Est GFR (Non-Af Amer) 60 12/24/17 11:58 Random Glucose 92 mg/dL (65-105) 12/24/17 11:58 Calcium 9.8 mg/dL (8.4-10.2) 12/24/17 11:58 Total Bilirubin 0.7 mg/dl (0.2-1.3) 12/24/17 11:58 AST 28 U/L (14-36) 12/24/17 11:58 ALT 21 U/L (9-52) 12/24/17 11:58 Alkaline Phosphatase 82 U/L (38-126) 12/24/17 11:58 Troponin I < 0.0120 ng/mL (0.00-0.120) 12/25/17 10:00 NT-Pro-B Natriuret Pep 545 pg/ml (0-900) 12/24/17 11:58 Total Protein 7.8 G/DL (6.3-8.2) 12/24/17 11:58 Albumin 4.2 g/dL (3.5-5.0) 12/24/17 11:58 Globulin 3.6 gm/dL (2.2-3.9) 12/24/17 11:58 Albumin/Globulin Ratio 1.2 (1.0-2.1) 12/24/17 11:58 - Hospital Course Hospital Course: This is an 82 y/o female admitted for chest pain. Has a hx of CAD HTN hypothyroidism arthritis and DM 2. All cardiac enzymes were negative and EKG showed no acute changes . She was observed for two days and discharged in stable condition. She was advised to follow up in my office in 2 weeks and to continue all her home meds. She will be following up with Dr Rawls, cardiology. Discharge Exam - Head Exam Head Exam: ATRAUMATIC, NORMAL INSPECTION, NORMOCEPHALIC - Eye Exam Eye Exam: Normal appearance - Respiratory Exam Respiratory Exam: NORMAL BREATHING PATTERN - Cardiovascular Exam Cardiovascular Exam: REGULAR RHYTHM - GI/Abdominal Exam GI & Abdominal Exam: Normal Bowel Sounds - Neurological Exam Neurological exam: CN II-XII Intact, Oriented x3 - Psychiatric Exam Psychiatric exam: Normal Mood - Skin Skin Exam: Intact Discharge Plan - Follow Up Plan Condition: FAIR Disposition: HOME/ ROUTINE Additional Instructions: advised follow up in 2 weeks cont all home meds. follow up with Cardiology in 2 weeks.
[2017-12-25 12:56] VITALS: BP 140/74; PULSE 68; RESP 18
== END 2017-12-25 13:05 | disposition home or self-care (01) ==
LOC: H.ER 11:21 → H.ERHOLD 14:36
PROVIDERS: ADMIT Family Medicine; ATTEND Family Medicine
DX: R07.89 Other chest pain (principal); I10 Essential (primary) hypertension; I25.10 Atherosclerotic heart disease of native coronary artery without angina pectoris; E78.5 Hyperlipidemia, unspecified; E03.9 Hypothyroidism, unspecified; E11.9 Type 2 diabetes mellitus without complications; R42 Dizziness and giddiness; K29.70 Gastritis, unspecified, without bleeding; M19.90 Unspecified osteoarthritis, unspecified site; F41.9 Anxiety disorder, unspecified; Z95.0 Presence of cardiac pacemaker; Z95.1 Presence of aortocoronary bypass graft; Z79.01 Long term (current) use of anticoagulants
CPT/HCPCS: 70450; 71045; 80053; 83880; 84484; 85025; 85610; 85730; 93005; 99285; G0378; J7040

== ENCOUNTER 2018-04-16 11:34 | Inpatient (IN) | payer MEDICARE, OTHER ==
[2018-04-16 11:35] VITALS: BMI 27.8
--- NOTE | 2018-04-16 12:32 | ED PDOC ---
HPI: Chest Pain Time Seen by Provider: 04/16/18 11:40 Chief Complaint (Nursing): Chest Pain Chief Complaint (Provider): Chest Pain History Per: Patient History/Exam Limitations: no limitations Onset/Duration Of Symptoms: Days Current Symptoms Are (Timing): Still Present Additional Complaint(s): 86 year old female with a past medical history of HTN, diabetes, status post CABG, depression, hypothyroidism, and PE presents to the ED complaining of generalized weakness and shortness of breath, onset 10 days ago, associated with dyspnea on exertion since yesterday. Patient was recently put on digoxin by fine artist, Dr. Rawls, for better control of heart rate. Additionally, patient was taken off metformin and other diabetic medications by Dr. Peters to see if that improved the dizziness that the pt was experiencing. Patient (and daughter at bedside) reports dizziness worsened 7 days ago and today had generalized weakness (not focal) . Denies fever, chest pain at this time, vomiting, and diarrhea. pt is currently on xarelta. PMD: Dr. Peters Past Medical History Reviewed: Historical Data, Nursing Documentation, Vital Signs Vital Signs: Last Vital Signs Temp 97.4 F L 04/19/18 07:54 Pulse 72 04/19/18 07:54 Resp 18 04/19/18 07:54 BP 138/73 04/19/18 04:49 Pulse Ox 98 04/19/18 07:54 - Medical History PMH: Anxiety, Arthritis, CAD, Depression, Diabetes (type II, takes Metformin), Diverticulitis, Gastritis, HTN, Hypercholesterolemia, Hypothyroidism Denies: Alzheimer's Disease, Atrial Fibrillation, Cardia Arrhythmia, CHF, Emphysema, HIV, Chronic Kidney Disease - Surgical History Surgical History: CABG, Cholecystectomy, Hernia Repair, Pacemaker, Tonsillectomy - Family History Family History: States: Unknown Family Hx - Social History Current smoker - smoking cessation education provided: No Alcohol: None Drugs: Denies - Home Medications Home Medications: Ambulatory Orders Medication Instructions Recorded Alogliptin Benzoate [Alogliptin] 25 mg PO QPM 07/11/17 Atorvastatin [Lipitor] 10 mg PO MWF 07/11/17 Carvedilol [Coreg] 3.125 mg PO Q12H 07/11/17 Dexlansoprazole [Dexilant] 60 mg PO DAILY 07/11/17 LORazepam [Ativan] 0.5 mg PO Q8H PRN 07/11/17 Levothyroxine [Synthroid] 88 mcg PO DAILY 07/11/17 Lubiprostone [Amitiza] 24 mcg PO DAILY 07/11/17 MetFORMIN ER [Glucophage XR] 500 mg PO DAILY 07/11/17 Rivaroxaban [Xarelto] 20 mg PO QPM 07/11/17 Escitalopram Oxalate [Lexapro] 5 mg PO QPM 07/19/17 Atorvastatin [Lipitor] 10 mg PO DAILY 04/16/18 Dexlansoprazole [Dexilant] 30 mg PO DAILY 04/16/18 Digoxin [Digoxin] 0.125 mg PO DAILY 04/16/18 Escitalopram [Lexapro] 10 mg PO DAILY 04/16/18 Isosorbide Dinitrate 30 mg PO DAILY 04/16/18 Pioglitazone [Actos] 15 mg PO DAILY 04/16/18 - Allergies Allergies/Adverse Reactions: Allergies Allergy/AdvReac Type Severity Reaction Status Date / Time No Known Allergies Allergy Verified 04/16/18 11:59 YE Risk Score for UA/NSTEMI - YE Risk Score Age > 64: YES 3 or more CAD Risk Factors: YES Known CAD (Stenosis greater than 50%): YES Aspirin use in past 7 days: NO Severe Angina: NO EKG ST changes greater than 0.5mm: NO Positive Cardiac Marker: NO YE Score: 3 Risk %: 13% Wells Criteria for PE - Wells Criteria for Pulmonary Embolism Clinical Signs and Symptoms of DVT: No P.E is #1 Diagnosis, or Equally Likely: No Heart Rate >100: No Immobilization at least 3 days;Surgery previous 4 weeks: No Previous, objectively diagnosed PE or DVT: No Hemoptysis: No Malignancy w/treatment within 6 months, or palliative: No Total Score: 0 Review of Systems ROS Statement: Except As Marked, All Systems Reviewed And Found Negative Constitutional: Negative for: Fever Cardiovascular: Negative for: Chest Pain Respiratory: Positive for: Shortness of Breath, Other (dyspnea on exertion ) Gastrointestinal: Negative for: Vomiting, Diarrhea Neurological: Positive for: Weakness (generalized), Dizziness Physical Exam - Reviewed Nursing Documentation Reviewed: Yes Vital Signs Reviewed: Yes - Physical Exam Appears: Positive for: Well (scars from CABG with pacemaker), Non-toxic, No Acute Distress Head Exam: Positive for: ATRAUMATIC, NORMOCEPHALIC Skin: Positive for: Normal Color, Warm, Dry Eye Exam: Positive for: Normal appearance, EOMI, PERRL ENT: Positive for: Normal ENT Inspection Neck: Positive for: Normal, Painless ROM Cardiovascular/Chest: Positive for: Regular Rate, Rhythm. Negative for: Murmur Respiratory: Positive for: Normal Breath Sounds. Negative for: Respiratory Distress Gastrointestinal/Abdominal: Positive for: Normal Exam, Soft. Negative for: Tenderness Back: Positive for: Normal Inspection Extremity: Positive for: Normal ROM. Negative for: Pedal Edema Neurologic/Psych: Positive for: Alert, cuffing machine operator II-XII, Oriented. Negative for: Motor/Sensory Deficits, Aphasia, Facial Droop - Laboratory Results Result Diagrams: 04/18/18 04:25 04/19/18 05:05 - ECG O2 Sat by Pulse Oximetry: 95 (RA) Pulse Ox Interpretation: Normal Medical Decision Making Medical Decision Making: Time: 1220 Plan: weakness, dizziness chest pain non focal weakness and no current chest pain -- Head CT w/o contrast -- CMP -- Digoxin -- Troponin I -- CBC with differentials -- D Dimer [COAG] ddimer clotted labs reveiwed, troponin negative. Time: [address] RESULTS FINDINGS: HEMORRHAGE: No intracranial hemorrhage. BRAIN: There are mild chronic microangiopathic changes. There is no mass, mass effect or abnormal extra-axial fluid collection. VENTRICLES: There is mild age-related global parenchymal volume loss and proportionate enlargement of the ventricles and cortical sulci. CALVARIUM: The skull base and calvarium are normal. There is mild hyperostosis frontalis interna. PARANASAL SINUSES: Predominantly clear. MASTOID AIR CELLS: Predominantly clear. OTHER FINDINGS: None. IMPRESSION: No acute intracranial abnormality. Mild chronic microangiopathic changes and mild age-related global parenchymal volume loss. Time: 1400 -- Spoke to Dr. Peters, accepted patient for admission. Requests consult made for neurologist, Dr. Lyle. Time: 1505 CXR RESULTS FINDINGS: LUNGS: The lungs are clear. PLEURA: No significant pleural effusion identified, no pneumothorax apparent. CARDIOVASCULAR: There is mild cardiomegaly. Status post CABG. OSSEOUS STRUCTURES: No significant abnormalities. VISUALIZED UPPER ABDOMEN: Normal. OTHER FINDINGS: None. IMPRESSION: No acute findings. ddimer elevated. given history of PE will do CT angio to rule out PE. signout to Dr Bruce pending CT chest results. Scribe Attestation: Documented by Argenis Cassidy, acting as a scribe for Dr. Tessie Mckeon MD Provider Scribe Attestation: All medical record entries made by the Scribe were at my direction and personally dictated by me. I have reviewed the chart and agree that the record accurately reflects my personal performance of the history, physical exam, medical decision making, and the department course for this patient. I have also personally directed, reviewed, and agree with the discharge instructions and disposition. Disposition - Clinical Impression Clinical Impression: Chest pain on exertion, Dizziness - Patient ED Disposition Is Patient to be Admitted: Yes - Disposition Disposition: Transfer of Care Disposition Time: 16:30 Condition: STABLE
[2018-04-16 12:40] LABS: BASO % 0.7 % (0.0-2.0); EOS # 0.2 K/uL (0.0-0.7); EOS % 3.5 % (0.0-4.0); HEMOGLOBIN 10.8 g/dL (12.0-16.0); LYMPH # 1.1 K/uL (1.0-4.3); LYMPH % 16.5 % (20.0-40.0); MEAN CELL VOLUME 89.1 fl (81.0-99.0); MEAN CORPUSCULAR HEMOGLOBIN 29.5 pg (27.0-31.0); MEAN PLATELET VOLUME 8.3 fl (7.2-11.7); MONO # 0.4 K/uL (0.0-0.8); MONO % 6.1 % (0.0-10.0); NEUT # 4.7 K/uL (1.8-7.0); NEUT % 73.2 % (50.0-75.0); RBC 3.67 Mil/uL (3.80-5.20); RED CELL DISTRIBUTION WIDTH 14.8 % (11.5-14.5); WHITE BLOOD COUNT 6.5 K/uL (4.8-10.8)
[2018-04-16 12:46] LABS: CALCIUM 9.4 mg/dL (8.4-10.2); GFR AFRICAN-AMERICAN > 60; GFR NON-AFRICAN AMERICAN 53
[2018-04-16 13:04] LABS: ALB/GLOB RATIO 1.1 (1.0-2.1); ALBUMIN 3.6 g/dL (3.5-5.0); BLOOD UREA NITROGEN 16 mg/dl (7-17)
[2018-04-16 13:05] LABS: ALT/SGPT 28 U/L (9-52); AST/SGOT 44 U/L (14-36)
--- NOTE | 2018-04-16 13:17 | CT ---
PROCEDURE: CT HEAD WITHOUT CONTRAST. HISTORY: Headache COMPARISON: 12/24/2017. TECHNIQUE: Axial computed tomography images were obtained through the head/brain without intravenous contrast. Radiation dose: Total exam DLP = 810.47 mGy-cm. This CT exam was performed using one or more of the following dose reduction techniques: Automated exposure control, adjustment of the mA and/or kV according to patient size, and/or use of iterative reconstruction technique. FINDINGS: HEMORRHAGE: No intracranial hemorrhage. BRAIN: There are mild chronic microangiopathic changes. There is no mass, mass effect or abnormal extra-axial fluid collection. VENTRICLES: There is mild age-related global parenchymal volume loss and proportionate enlargement of the ventricles and cortical sulci. CALVARIUM: The skull base and calvarium are normal. There is mild hyperostosis frontalis interna. PARANASAL SINUSES: Predominantly clear. MASTOID AIR CELLS: Predominantly clear. OTHER FINDINGS: None. IMPRESSION: No acute intracranial abnormality. Mild chronic microangiopathic changes and mild age-related global parenchymal volume loss.
--- NOTE | 2018-04-16 15:07 | RAD ---
HISTORY: Chest pain COMPARISON: 12/24/2017. FINDINGS: LUNGS: The lungs are clear. PLEURA: No significant pleural effusion identified, no pneumothorax apparent. CARDIOVASCULAR: There is mild cardiomegaly. Status post CABG. OSSEOUS STRUCTURES: No significant abnormalities. VISUALIZED UPPER ABDOMEN: Normal. OTHER FINDINGS: None. IMPRESSION: No acute findings.
[2018-04-16] MEDS ORDERED: Sodium Chloride 0.9% 50 ML IV ONE (16:11)
[2018-04-16] MEDS ORDERED: Iodixanol 320 MG/ML 100 ML BOTTLE IV ONE (16:11)
--- NOTE | 2018-04-16 17:58 | CT ---
PROCEDURE: CT Chest with contrast (Pulmonary Angiogram) HISTORY: elevated ddimer rule out PE COMPARISON: Plain radiographs performed earlier the same day. TECHNIQUE: Axial computed tomography images were obtained of the chest in the pulmonary arterial phase of enhancement. Coronal and sagittal reformatted images were created and reviewed. Intravenous contrast dose: 70 mL Visipaque 320 Radiation dose: Total exam DLP = 377.04 mGy-cm. This CT exam was performed using one or more of the following dose reduction techniques: Automated exposure control, adjustment of the mA and/or kV according to patient size, and/or use of iterative reconstruction technique. FINDINGS: PULMONARY ARTERIES: There are no filling defects in the pulmonary arteries to suggest acute pulmonary embolism. AORTA: There is aneurysm of the ascending aorta measuring 4.5 x 4.8 cm. . LUNGS: The lungs are well inflated. There is a 6 mm nodule in the superior segment of the left lower lobe (series 5, image 37). There is patchy ground-glass attenuation in the lungs. PLEURAL SPACES: No effusion or pneumothorax. HEART: The heart is enlarged. Status post CABG with No significant pericardial effusion. LYMPH NODES: No lymphadenopathy. BONES, CHEST WALL: Within normal limits for the patient's age. No fracture or destructive lesion OTHER FINDINGS: Status post cholecystectomy. There is pneumobilia in keeping with postsurgical changes. There is a fat containing supraumbilical ventral hernia. Both adrenal glands are normal. IMPRESSION: 1. No CT evidence for acute pulmonary embolism. 2. 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 3. Cardiomegaly and mild alveolar pulmonary edema. 4. 6 mm nodule in the superior segment of the left lower lobe. A CT scan of the thorax without intravenous contrast in 6-12 month interval is recommended to assess stability.
--- NOTE | 2018-04-17 00:12 | CP.PCM.HP ---
History of Present Illness - History of Present Illness History of Present Illness: This is an 82 y/o female admitted for severe dizziness and generalized body weakness. Past Patient History - Infectious Disease Hx of Infectious Diseases: None - Tetanus Immunizations Tetanus Immunization: Unknown - Past Medical History & Family History Past Medical History?: Yes - Past Social History Smoking Status: Never Smoked - CARDIAC Hx Cardiac Disorders: Yes Hx Hypertension: Yes Hx Pacemaker: Yes - PULMONARY Hx Respiratory Disorders: Yes - NEUROLOGICAL Hx Alzheimer's Disease: No - HEENT Hx HEENT Problems: No - RENAL Hx Chronic Kidney Disease: No - ENDOCRINE/METABOLIC Hx Endocrine Disorders: Yes Hx Diabetes Mellitus Type 2: Yes - HEMATOLOGICAL/ONCOLOGICAL Hx Blood Disorders: No Hx AIDS: No Hx Human Immunodeficiency Virus (HIV): No - INTEGUMENTARY Hx Dermatological Problems: No - MUSCULOSKELETAL/RHEUMATOLOGICAL Hx Musculoskeletal Disorders: Yes Hx Falls: Yes Hx Osteoarthritis: Yes - GASTROINTESTINAL Hx Gastrointestinal Disorders: Yes Hx Diverticulitis: Yes Hx Gastritis: Yes - GENITOURINARY/GYNECOLOGICAL Hx Genitourinary Disorders: No - PSYCHIATRIC Hx Psychophysiologic Disorder: Yes Hx Substance Use: No - SURGICAL HISTORY Hx Surgeries: Yes Hx Cholecystectomy: Yes Hx Coronary Artery Bypass Graft: Yes Hx Tonsillectomy: Yes - ANESTHESIA Hx Anesthesia: Yes Hx Anesthesia Reactions: No Hx Malignant Hyperthermia: No Meds Allergies/Adverse Reactions: Allergies Allergy/AdvReac Type Severity Reaction Status Date / Time No Known Allergies Allergy Verified 04/16/18 11:59 Results - Vital Signs Recent Vital Signs: Last Vital Signs Temp 98.3 F 04/16/18 20:02 Pulse 60 04/16/18 22:06 Resp 20 04/16/18 20:09 BP 149/79 04/16/18 22:06 Pulse Ox 97 04/16/18 20:02 - Labs Result Diagrams: 04/16/18 12:20 04/16/18 12:20 Labs: Laboratory Results - last 24 hr 04/16/18 04/16/18 04/16/18 12:12 12:20 12:20 WBC 6.5 RBC 3.67 L Hgb 10.8 L Hct 32.7 L MCV 89.1 MCH 29.5 MCHC 33.0 RDW 14.8 H Plt Count 184 MPV 8.3 Neut % (Auto) 73.2 Lymph % (Auto) 16.5 L Mcmullen % (Auto) 6.1 Eos % (Auto) 3.5 Baso % (Auto) 0.7 Neut # (Auto) 4.7 Lymph # (Auto) 1.1 Mcmullen # (Auto) 0.4 Eos # (Auto) 0.2 Baso # (Auto) 0.0 D-Dimer, Quantitative Sodium 139 Potassium 4.7 Chloride 102 Carbon Dioxide 20 L Anion Gap 22 H BUN 16 Creatinine 1.0 Est GFR ( Amer) > 60 Est GFR (Non-Af Amer) 53 POC Glucose (mg/dL) 331 H Random Glucose 298 H Calcium 9.4 Total Bilirubin 0.7 AST 44 H D ALT 28 Alkaline Phosphatase 88 Troponin I < 0.0120 NT-Pro-B Natriuret Pep Total Protein 7.1 Albumin 3.6 Globulin 3.4 Albumin/Globulin Ratio 1.1 Digoxin 04/16/18 04/16/18 04/16/18 12:20 14:11 14:23 WBC RBC Hgb Hct MCV MCH MCHC RDW Plt Count MPV Neut % (Auto) Lymph % (Auto) Mcmullen % (Auto) Eos % (Auto) Baso % (Auto) Neut # (Auto) Lymph # (Auto) Mcmullen # (Auto) Eos # (Auto) Baso # (Auto) D-Dimer, Quantitative Sodium Potassium Chloride Carbon Dioxide Anion Gap BUN Creatinine Est GFR ( Amer) Est GFR (Non-Af Amer) POC Glucose (mg/dL) 250 H Random Glucose Calcium Total Bilirubin AST ALT Alkaline Phosphatase Troponin I NT-Pro-B Natriuret Pep 2520 H Total Protein Albumin Globulin Albumin/Globulin Ratio Digoxin 0.9 04/16/18 04/16/18 04/16/18 14:23 20:17 21:58 WBC RBC Hgb Hct MCV MCH MCHC RDW Plt Count MPV Neut % (Auto) Lymph % (Auto) Mcmullen % (Auto) Eos % (Auto) Baso % (Auto) Neut # (Auto) Lymph # (Auto) Mcmullen # (Auto) Eos # (Auto) Baso # (Auto) D-Dimer, Quantitative 782 H Sodium Potassium Chloride Carbon Dioxide Anion Gap BUN Creatinine Est GFR ( Amer) Est GFR (Non-Af Amer) POC Glucose (mg/dL) 114 H Random Glucose Calcium Total Bilirubin AST ALT Alkaline Phosphatase Troponin I < 0.0120 NT-Pro-B Natriuret Pep Total Protein Albumin Globulin Albumin/Globulin Ratio Digoxin
[2018-04-17] MEDS: Digoxin 125 mcg (0.125 mg) Tab PO SCH (08:48)
[2018-04-17] MEDS: Pantoprazole 20 mg EC Tab PO SCH (08:50)
--- NOTE | 2018-04-17 10:57 | CP.PCM.PN ---
Subjective - Date & Time of Evaluation Date of Evaluation: 04/17/18 Time of Evaluation: 07:25 - Subjective Subjective: Patient seen and examined bedside. Report feeling better today and denies dizziness while on telemetry. She denies chest pain, SOB. Objective - Vital Signs/Intake and Output Vital Signs (last 24 hours): Temp Pulse Resp BP Pulse Ox 98.3 F 65 18 130/70 96 04/17/18 08:03 04/17/18 08:47 04/17/18 08:03 04/17/18 08:47 04/17/18 08:03 - Medications Medications: Current Medications Atorvastatin Calcium (Lipitor) 10 mg PO DAILY [facility] Last Admin: 04/17/18 08:50 Dose: 10 mg Carvedilol (Coreg) 3.125 mg PO Q12H [facility] Last Admin: 04/17/18 08:47 Dose: 3.125 mg Digoxin (Digoxin) 0.125 mg PO DAILY [facility] Last Admin: 04/17/18 08:48 Dose: 0.125 mg Escitalopram Oxalate (Lexapro) 10 mg PO DAILY [facility] Last Admin: 04/17/18 08:49 Dose: 10 mg Escitalopram Oxalate (Lexapro) 5 mg PO QPM [facility] Furosemide (Lasix) 20 mg PO DAILY [facility] Home Med (Lubiprostone [Amitiza]) 24 mcg PO DAILY [facility] Isosorbide Mononitrate (Imdur Er) 30 mg PO DAILY [facility] Last Admin: 04/17/18 08:51 Dose: 30 mg Levothyroxine Sodium (Synthroid) 88 mcg PO DAILY@0630 [facility] Lorazepam (Ativan) 0.5 mg PO Q8H PRN PRN Reason: Anxiety Last Admin: 04/16/18 22:07 Dose: 0.5 mg Pantoprazole Sodium (Protonix Ec Tab) 20 mg PO DAILY [facility] Last Admin: 04/17/18 08:50 Dose: 20 mg Rivaroxaban (Xarelto) 20 mg PO QPM [facility] PRN Reason: Protocol Sitagliptin Phosphate (Januvia) 100 mg PO DAILY [facility] Last Admin: 04/17/18 08:49 Dose: 100 mg - Labs Labs: 04/16/18 12:20 04/16/18 12:20 - Constitutional Appears: Non-toxic, No Acute Distress - Head Exam Head Exam: ATRAUMATIC, NORMOCEPHALIC - Eye Exam Eye Exam: Normal appearance - ENT Exam ENT Exam: Mucous Membranes Moist - Respiratory Exam Respiratory Exam: Clear to Ausculation Bilateral. absent: Rhonchi, Wheezes - Cardiovascular Exam Cardiovascular Exam: REGULAR RHYTHM, +S1, +S2 - GI/Abdominal Exam GI & Abdominal Exam: Soft, Normal Bowel Sounds. absent: Tenderness - Extremities Exam Extremities Exam: Normal Inspection. absent: Pedal Edema - Neurological Exam Neurological Exam: Alert, Awake, Oriented x3 - Psychiatric Exam Psychiatric exam: Normal Affect, Normal Mood - Skin Skin Exam: Intact Assessment and Plan - Assessment and Plan (Free Text) Plan: Assessment/Plan 1) SOB -2/2 CHF diastolic Propbmp high -lasix 20 mg IV daily -watch crystal cutter consult suggested -f/u echo 2) Dizziness -unspecified Orthostatic vs normal -f/u echo 3) Elevated D dimer -PE ruled out CT chest normal. 4) CAD - chronic 5) HTN -chronic 6) DM -chronic 7) Hypothyroidism -chronic 8) anemia -of chronic disease 9) DT Prophylaxis on xarelto
[2018-04-17 12:20] LABS: IRON 48 ug/dL (37-170)
[2018-04-17 12:29] LABS: % IRON SATURATION 15 % (20-55); TOTAL IRON BINDING CAPACITY 312 ug/dL (250-450)
[2018-04-17] MEDS: Levothyroxine 88 MCG TAB PO SCH (13:24)
[2018-04-17] MEDS ORDERED: Lactulose 10 gm/15 ml Syrup PO PRN (13:49)
--- NOTE | 2018-04-17 21:21 | CON ---
DATE: 04/17/2018 CHIEF COMPLAINT: Dizziness. HISTORY OF PRESENT ILLNESS: This is an 82-year-old woman with history of hypertension, type 2 diabetes mellitus, status post CABG, depression, hypothyroidism,and PE who came in for generalized weakness and shortness of breath about 10 days ago dyspnea on exertion and found to have an elevated BNP. She states the dizziness with lightheadedness rather spinning sensation of the room. She had elevated blood sugars initially of 331 and today is 298. She is having hyperglycemic events, but no focal neurological symptoms at this time. CAT scan of the head showed no acute intracranial abnormalities. PAST MEDICAL HISTORY: As above. FAMILY HISTORY: Noncontributory. SOCIAL HISTORY: No illicit drug use, smoking, or EtOH abuse. ALLERGIES: NO KNOWN DRUG ALLERGIES. MEDICATIONS: Reviewed by nurse reconciliation sheet. REVIEW OF SYSTEMS: A 14-point review of systems is negative except in the HPI. PHYSICAL EXAMINATION: VITAL SIGNS: Temperature 98, pulse rate 62, blood pressure 109/65, respiratory rate 17, and oxygen saturation 98% on room air. GENERAL: The patient is sitting up in bed, in no acute distress. HEENT: Atraumatic and normocephalic. PERRLA. Extraocular muscles are intact. NECK: Supple. No JVD. No adenopathy noted. LUNGS: Clear to auscultation. No adventitious sounds. HEART: S1 and S2. Normal rate and rhythm. No murmurs, rubs, or gallops. ABDOMEN: Soft, nontender, and nondistended. Bowel sounds are present. EXTREMITIES: No clubbing. No cyanosis. Peripheral pulses 2+ felt bilaterally. NEUROLOGIC: The patient is alert and oriented to person, place, month, and year. Speech is fluent without errors. Cranial nerves II-XII are intact. Motor exam; moves all extremities equally. Toes are downgoing bilaterally. Sensory exam; light touch, pinprick, proprioception, and vibration are intact. DTRs are 2+ throughout and 1 at the ankles. Coordination: [id number] intact. No dysmetria noted. Gait is deferred for now. LABORATORY DATA: Today's blood sugar is 254. CAT scan of the head showed no acute intracranial abnormality. ASSESSMENT AND PLAN: This is an 82-year-old woman with history of type 2 diabetes mellitus, hypertension, coronary artery disease, status post coronary artery bypass graft, depression, and hypothyroidism who came in with dizziness and shortness of breath and generalized weakness. Her dizziness seems likely secondary to hyperglycemic fluctuations superimposed underlying transient cerebral hypoperfusional state. She had mildly orthostatic changes seen on lying to standing. Blood pressure lying was 119/67 and standing was 100/63. Otherwise, she generally deconditioned as mild congestive heart failure symptoms. Her BNP was 2520, which is slightly elevated. RECOMMENDATIONS: At this time, recommend; 1. Keep her blood pressures between 130s to 140s systolic and diastolic 70s to 80s. 2. Keep her blood sugars between 140 to 180 and avoid hyperglycemic accelerations and recommend a diabetic diet. 3. Recommend Lipitor 10 mg and aspirin 81 mg daily for stroke prevention. 4. Continue furosemide 20 mg p.o. daily for underlying CHF and follow with Cardiology recommendations and continue current present medical management. Thank you for this consult. Aristeo Zepeda MD
[2018-04-18 05:59] LABS: BLOOD UREA NITROGEN 15 mg/dl (7-17); CALCIUM 9.6 mg/dL (8.4-10.2); GFR AFRICAN-AMERICAN > 60; GFR NON-AFRICAN AMERICAN 53; HDL CHOLESTEROL 17 MG/DL (30-70)
[2018-04-18 06:00] LABS: B-TYPE NATRIURETIC PEPTIDE 563 pg/ml (0-900)
[2018-04-18 06:02] LABS: INR 2.2 (0.9-1.2); PARTIAL THROMBOPLASTIN TIME 39.8 Seconds (25.6-37.1); PROTHROMBIN TIME 24.5 Seconds (9.8-13.1)
[2018-04-18 06:05] LABS: HEMOGLOBIN 10.7 g/dL (12.0-16.0); MEAN CELL VOLUME 88.8 fl (81.0-99.0); MEAN CORPUSCULAR HEMOGLOBIN 29.7 pg (27.0-31.0); MEAN CORPUSCULAR HGB CONC 33.5 g/dL (33.0-37.0); RBC 3.61 Mil/uL (3.80-5.20); RED CELL DISTRIBUTION WIDTH 14.8 % (11.5-14.5); WHITE BLOOD COUNT 6.3 K/uL (4.8-10.8)
[2018-04-18 06:10] LABS: LDL CHOLESTEROL 47 mg/dL (0-129)
[2018-04-18 06:26] LABS: FERRITIN 29.1 ng/Ml (11.1-264.0)
[2018-04-18] MEDS: Levothyroxine 88 MCG TAB PO SCH (06:27)
--- NOTE | 2018-04-18 08:38 | CP.PCM.CON ---
History of Present Illness - History of Present Illness History of Present Illness: I was asked to see irma Conte, who i am covering Patient is a 82 year old female with PMH HTn, hypercholesterolemia admitted with dizziness. She states symptoms occurred at rest. She denies chest pain. Review of Systems - Constitutional Constitutional: absent: As Per HPI, Anorexia, Chills, Daytime Sleepiness, Excessive Sweating, Fatigue, Fever, Frequent Falls, Headache, Increased Appetite , Lethargy, Malaise, Night Sweats, Snoring, Sleep Apnea, Weight Gain, Weight Loss, Weakness, Other - EENT Eyes: absent: As Per HPI, Blind Spots, Blurred Vision, Change in Vision, Decreased Night Vision, Diplopia, Discharge, Dry Eye, Exophthalmos, Floaters, Irritation, Itchy Eyes, Loss of Peripheral Vision, Pain, Photophobia, Requires Corrective Lenses, Sees Flashes, Spots in Vision, Tunnel Vision, Other Visual Disturbances, Loss of Vision, Other Ears: absent: As Per HPI, Decreased Hearing, Ear Discharge, Ear Pain, Tinnitus, Abnormal Hearing, Disequilibrium, Dizziness, Other Nose/Mouth/Throat: absent: As Per HPI, Epistaxis, Nasal Congestion, Nasal Discharge, Nasal Obstruction, Nasal Trauma, Nose Pain, Post Nasal Drip, Sinus Pain, Sinus Pressure, Bleeding Gums, Change in Voice, Dental Pain, Dry Mouth, Dysphagia, Halitosis, Hoarsness, Lip Swelling, Mouth Lesions, Mouth Pain, Odynophagia, Sore Throat, Throat Swelling, Tongue Swelling, Facial Pain, Neck Pain, Neck Mass, Other - Breasts Breasts: absent: As Per HPI, Change in Shape, Mass, Pain, Nipple Discharge, Nipple Inversion, Skin Changes, Swelling, Other - Cardiovascular Cardiovascular: absent: As Per HPI, Acrocyanosis, Chest Pain, Chest Pain at Rest , Chest Pain with Activity, Claudication, Diaphoresis, Dyspnea, Dyspnea on Exertion, Edema, Irregular Heart Rhythm, Pain Radiating to Arm/Neck/Jaw, Leg Edema, Leg Ulcers, Lightheadedness, Orthopnea, Palpitations, Paroxysmal Nocturnal Dyspnea, Pedal Edema, Radiating Pain, Rapid Heart Rate, Slow Heart Rate, Syncope, Other - Respiratory Respiratory: absent: As Per HPI, Cough, Dyspnea, Hemoptysis, Dyspnea on Exertion , Wheezing, Snoring, Stridor, Pain on Inspiration, Chest Congestion, Excessive Mucous Production, Change in Mucous Color, Pain with Coughing, Other - Gastrointestinal Gastrointestinal: absent: As Per HPI, Abdominal Pain, Belching, Bloating, Change in Bowel Habits, Change in Stool Character, Coffee Ground Emesis, Constipation, Cramping, Diarrhea, Dyspepsia, Dysphagia, Early Satiety, Excessive Flatus, Fecal Incontinence, Heartburn, Hematemesis, Hematochezia, Loose Stools, Melena, Nausea, Odynophagia, Temesmus, Vomiting, Other - Genitourinary Genitourinary: absent: As Per HPI, Change in Urinary Stream, Difficulty Urinating, Dysuria, Flank Pain, Hematuria, Pyuria, Nocturia, Urinary Incontinence, Urinary Frequency, Urinary Hesitance, Urinary Urgency, Voiding Freq/Small Amts, Freq UTI, Hx Renal/Bladder Calculi, Hx /Renal Surgery, Bladder Distension, Other - Musculoskeletal Musculoskeletal: absent: As Per HPI, Abnormal Gait, Arthralgias, Atrophy, Back Pain, Deformity, Joint Swelling, Limited Range of Motion, Loss of Height, Muscle Cramps, Muscle Weakness, Myalgias, Neck Pain, Numbness, Radiating Pain into Limb, Stiffness, Tingling, Other - Integumentary Integumentary: absent: As Per HPI, Acne, Alopecia, Bleeding Lesions, Change in Hair, Change in Nails, Change in Pigmentation, Changing Lesions, Dry Skin, Erythema, Furuncle, Hirsutism, Lesions, New Lesions, Non-Healing Lesions, Photosensitivity, Pruritus, Rash, Skin Pain, Skin Ulcer, Sores, Striae, Swelling , Unusual Bruising, Wounds, Jaundice, Other - Neurological Neurological: absent: As Per HPI, Abnormal Gait, Abnormal Hearing, Abnormal Movements, Abnormal Speech, Behavioral Changes, Burning Sensations, Confusion, Convulsions, Disequilibrium, Dizziness, Numbness, Focal Weakness, Frequent Falls , Headaches, Lack of Coordination, Loss of Vision, Memory Loss, Paresthesias, Radicular Pain, Restless Legs, Sensory Deficit, Syncope, Tingling, Tremor, Vertigo, Weakness, Other Visual Disturbances, Other - Psychiatric Psychiatric: absent: As Per HPI, Abnormal Sleep Pattern, Anhedonia, Anxiety, Auditory Hallucinations, Behavioral Changes, Change in Appetite, Change in Libido, Confusion, Depression, Difficulty Concentrating, Hallucinations, Homicidal Ideation, Hopelessness, Irritability, Memory Loss, Mood Swings, Panic Attacks, Paranoia, Suicidal Ideation, Visual Hallucinations, Tactile Hallucinations, Other - Endocrine Endocrine: absent: As Per HPI, Change in Body Appearance, Change in Libido, Cold Intolorance, Deepening of Voice, Excessive Sweating, Fatigue, Flushing, Heat Intolorance, Increase in Ring/Shoe/Hat Size, Palpitations, Polydipsia, Polyphagia, Polyuria, Other - Hematologic/Lymphatic Hematologic: absent: As Per HPI, Easy Bleeding, Easy Bruising, Lymphadenopathy, Other Past Patient History - Infectious Disease Hx of Infectious Diseases: None - Tetanus Immunizations Tetanus Immunization: Unknown - Past Medical History & Family History Past Medical History?: Yes - Past Social History Smoking Status: Never Smoked - CARDIAC Hx Cardiac Disorders: Yes Hx Hypertension: Yes Hx Pacemaker: Yes - PULMONARY Hx Respiratory Disorders: Yes - NEUROLOGICAL Hx Alzheimer's Disease: No - HEENT Hx HEENT Problems: No - RENAL Hx Chronic Kidney Disease: No - ENDOCRINE/METABOLIC Hx Endocrine Disorders: Yes Hx Diabetes Mellitus Type 2: Yes - HEMATOLOGICAL/ONCOLOGICAL Hx Blood Disorders: No Hx AIDS: No Hx Human Immunodeficiency Virus (HIV): No - INTEGUMENTARY Hx Dermatological Problems: No - MUSCULOSKELETAL/RHEUMATOLOGICAL Hx Musculoskeletal Disorders: Yes Hx Falls: Yes Hx Osteoarthritis: Yes - GASTROINTESTINAL Hx Gastrointestinal Disorders: Yes Hx Diverticulitis: Yes Hx Gastritis: Yes - GENITOURINARY/GYNECOLOGICAL Hx Genitourinary Disorders: No - PSYCHIATRIC Hx Psychophysiologic Disorder: Yes Hx Substance Use: No - SURGICAL HISTORY Hx Surgeries: Yes Hx Cholecystectomy: Yes Hx Coronary Artery Bypass Graft: Yes Hx Tonsillectomy: Yes - ANESTHESIA Hx Anesthesia: Yes Hx Anesthesia Reactions: No Hx Malignant Hyperthermia: No Meds Allergies/Adverse Reactions: Allergies Allergy/AdvReac Type Severity Reaction Status Date / Time No Known Allergies Allergy Verified 04/16/18 11:59 - Medications Medications: Current Medications Atorvastatin Calcium (Lipitor) 10 mg PO DAILY [facility] Last Admin: 04/17/18 08:50 Dose: 10 mg Carvedilol (Coreg) 3.125 mg PO Q12H [facility] Last Admin: 04/17/18 20:25 Dose: 3.125 mg Digoxin (Digoxin) 0.125 mg PO DAILY [facility] Last Admin: 04/17/18 08:48 Dose: 0.125 mg Escitalopram Oxalate (Lexapro) 10 mg PO DAILY [facility] Last Admin: 04/17/18 08:49 Dose: 10 mg Escitalopram Oxalate (Lexapro) 5 mg PO QPM [facility] Last Admin: 04/17/18 17:17 Dose: 5 mg Furosemide (Lasix) 20 mg PO DAILY [facility] Last Admin: 04/17/18 13:23 Dose: 20 mg Isosorbide Mononitrate (Imdur Er) 30 mg PO DAILY [facility] Last Admin: 04/17/18 08:51 Dose: 30 mg Lactulose (Enulose) 10 gm PO DAILY PRN PRN Reason: Constipation Levothyroxine Sodium (Synthroid) 88 mcg PO DAILY@0630 [facility] Last Admin: 04/18/18 06:27 Dose: 88 mcg Lorazepam (Ativan) 0.5 mg PO Q8H PRN PRN Reason: Anxiety Last Admin: 04/16/18 22:07 Dose: 0.5 mg Pantoprazole Sodium (Protonix Ec Tab) 20 mg PO DAILY [facility] Last Admin: 04/17/18 08:50 Dose: 20 mg Rivaroxaban (Xarelto) 20 mg PO QPM [facility] PRN Reason: Protocol Last Admin: 04/17/18 17:17 Dose: 20 mg Sitagliptin Phosphate (Januvia) 100 mg PO DAILY [facility] Last Admin: 04/17/18 08:49 Dose: 100 mg Results - Vital Signs Recent Vital Signs: Last Vital Signs Temp 97.5 F L 04/18/18 08:19 Pulse 89 04/18/18 08:19 Resp 18 04/18/18 08:19 BP 137/81 04/18/18 07:47 Pulse Ox 99 04/18/18 08:19 - Labs Result Diagrams: 04/18/18 04:25 04/18/18 04:25 Labs: Laboratory Results - last 24 hr 04/17/18 04/17/18 04/17/18 10:39 11:27 16:03 WBC RBC Hgb Hct MCV MCH MCHC RDW Plt Count PT INR APTT D-Dimer, Quantitative Sodium Potassium Chloride Carbon Dioxide Anion Gap BUN Creatinine Est GFR ( Amer) Est GFR (Non-Af Amer) POC Glucose (mg/dL) 254 H 148 H Random Glucose Calcium Iron 48 TIBC 312 % Saturation 15 L Ferritin NT-Pro-B Natriuret Pep Triglycerides Cholesterol LDL Cholesterol Direct HDL Cholesterol Vitamin B12 04/17/18 04/17/18 04/18/18 19:44 21:27 04:25 WBC 6.3 RBC 3.61 L Hgb 10.7 L Hct 32.1 L MCV 88.8 MCH 29.7 MCHC 33.5 RDW 14.8 H Plt Count 176 PT INR APTT D-Dimer, Quantitative Sodium Potassium Chloride Carbon Dioxide Anion Gap BUN Creatinine Est GFR ( Amer) Est GFR (Non-Af Amer) POC Glucose (mg/dL) 150 H 118 H Random Glucose Calcium Iron TIBC % Saturation Ferritin NT-Pro-B Natriuret Pep Triglycerides Cholesterol LDL Cholesterol Direct HDL Cholesterol Vitamin B12 04/18/18 04/18/18 04/18/18 04:25 04:25 05:35 WBC RBC Hgb Hct MCV MCH MCHC RDW Plt Count PT 24.5 H INR 2.2 H APTT 39.8 H D-Dimer, Quantitative 838 H Sodium 139 Potassium 4.0 Chloride 100 Carbon Dioxide 23 Anion Gap 20 BUN 15 Creatinine 1.0 Est GFR ( Amer) > 60 Est GFR (Non-Af Amer) 53 POC Glucose (mg/dL) 148 H Random Glucose 152 H Calcium 9.6 Iron TIBC % Saturation Ferritin 29.1 NT-Pro-B Natriuret Pep 563 Triglycerides 267 H D Cholesterol 111 LDL Cholesterol Direct 47 HDL Cholesterol 17 L Vitamin B12 556 - EKG Data EKG Interpreted by: Myself EKG shows normal: Sinus rhythm Assessment & Plan (1) HTN (hypertension) Assessment and Plan: medical therapy and blood pressure control. Status: Acute (2) Dizziness Assessment and Plan: no arrhtymia on telemetry. recommend medical therapy and will see Dr Conte for outpatient event monitor. Status: Acute
--- NOTE | 2018-04-18 09:12 | CP.PCM.PN ---
Subjective - Date & Time of Evaluation Date of Evaluation: 04/18/18 Time of Evaluation: 07:25 - Subjective Subjective: Patient seen and examined bedside. Report feeling better but the nurse reports orthostatic hypotension noted in the morning. Patient had Lasix 20 mg yesterday. Pro bmp normalized today. . She denies chest pain, SOB. Will repeat orthostatic VS at noon. Hold Lasix, hold nitrates. Objective - Vital Signs/Intake and Output Vital Signs (last 24 hours): Temp Pulse Resp BP Pulse Ox 97.5 F L 89 18 137/81 99 04/18/18 08:19 04/18/18 08:19 04/18/18 08:19 04/18/18 07:47 04/18/18 08:19 - Medications Medications: Current Medications Atorvastatin Calcium (Lipitor) 10 mg PO DAILY [facility] Last Admin: 04/17/18 08:50 Dose: 10 mg Carvedilol (Coreg) 3.125 mg PO Q12H [facility] Last Admin: 04/17/18 20:25 Dose: 3.125 mg Digoxin (Digoxin) 0.125 mg PO DAILY [facility] Last Admin: 04/17/18 08:48 Dose: 0.125 mg Escitalopram Oxalate (Lexapro) 10 mg PO DAILY [facility] Last Admin: 04/17/18 08:49 Dose: 10 mg Escitalopram Oxalate (Lexapro) 5 mg PO QPM [facility] Last Admin: 04/17/18 17:17 Dose: 5 mg Furosemide (Lasix) 20 mg PO DAILY [facility] Last Admin: 04/17/18 13:23 Dose: 20 mg Isosorbide Mononitrate (Imdur Er) 30 mg PO DAILY [facility] Last Admin: 04/17/18 08:51 Dose: 30 mg Lactulose (Enulose) 10 gm PO DAILY PRN PRN Reason: Constipation Levothyroxine Sodium (Synthroid) 88 mcg PO DAILY@0630 [facility] Last Admin: 04/18/18 06:27 Dose: 88 mcg Lorazepam (Ativan) 0.5 mg PO Q8H PRN PRN Reason: Anxiety Last Admin: 04/16/18 22:07 Dose: 0.5 mg Pantoprazole Sodium (Protonix Ec Tab) 20 mg PO DAILY [facility] Last Admin: 04/17/18 08:50 Dose: 20 mg Rivaroxaban (Xarelto) 20 mg PO QPM [facility] PRN Reason: Protocol Last Admin: 04/17/18 17:17 Dose: 20 mg Sitagliptin Phosphate (Januvia) 100 mg PO DAILY [facility] Last Admin: 04/17/18 08:49 Dose: 100 mg - Labs Labs: 04/18/18 04:25 04/18/18 04:25 PT 24.5 Seconds (9.8-13.1) H 04/18/18 04:25 INR 2.2 (0.9-1.2) H 04/18/18 04:25 APTT 39.8 Seconds (25.6-37.1) H 04/18/18 04:25 - Constitutional Appears: Non-toxic, No Acute Distress - Head Exam Head Exam: ATRAUMATIC, NORMOCEPHALIC - Eye Exam Eye Exam: Normal appearance - ENT Exam ENT Exam: Mucous Membranes Moist - Respiratory Exam Respiratory Exam: Clear to Ausculation Bilateral. absent: Rhonchi, Wheezes - Cardiovascular Exam Cardiovascular Exam: REGULAR RHYTHM, +S1, +S2 - GI/Abdominal Exam GI & Abdominal Exam: Soft, Normal Bowel Sounds. absent: Tenderness - Extremities Exam Extremities Exam: Normal Inspection. absent: Pedal Edema - Neurological Exam Neurological Exam: Alert, Awake, Oriented x3 - Psychiatric Exam Psychiatric exam: Normal Affect, Normal Mood - Skin Skin Exam: Intact Assessment and Plan - Assessment and Plan (Free Text) Plan: Assessment/Plan 1) SOB resolved -2/2 CHF diastolic Propbmp normalized today 563 -s/p lasix 20 mg yesterday -sock lining examiner consult appreciated -f/u echo 2) Dizziness -2/2 to orthostatic hypotension -march 2/2 lasix given yesterday Orthostatic vs normal on admission -hold Lasix, hold nitrates. 3) Elevated D dimer -PE ruled out CT chest normal. 4) CAD - chronic 5) HTN -chronic 6) DM -chronic 7) Hypothyroidism -chronic 8) anemia -of chronic disease 9) DvT Prophylaxis on xarelto
[2018-04-18] MEDS: Digoxin 125 mcg (0.125 mg) Tab PO SCH (09:27)
[2018-04-18] MEDS: Pantoprazole 20 mg EC Tab PO SCH (09:28)
[2018-04-18] MEDS: Sodium Chloride 0.9% 500 ML IV SCH (12:39)
[2018-04-18 13:36] LABS: FOLATE 12.7 ng/mL
--- NOTE | 2018-04-18 15:26 | CARD ---
APPROVED REPORT EXAM: Two-dimensional and M-mode echocardiogram with Doppler and color Doppler. Other Information Quality : AverageRhythm : Pacemaker INDICATION Congestive Heart Failure Surgery/Intervention ICD/Pacemaker: 2D DIMENSIONS IVSd1.18 (0.7-1.1cm)LVDd3.98 (3.9-5.9cm) LVOT Diameter2.21 (1.8-2.4cm)PWd1.09 (0.7-1.1cm) IVSs1.35 (0.8-1.2cm)LVDs4.01 (2.5-4.0cm) FS (%) 0.8 %PWs1.78 (0.8-1.2cm) M-Mode DIMENSIONS Left Atrium (MM)3.69 (2.5-4.0cm)Aortic Root3.78 (2.2-3.7cm) Aortic Cusp Exc.1.56 (1.5-2.0cm) Mitral Valve E/A ratio0.0 TDI E/Lateral E'0.0E/Medial E'0.0 LEFT VENTRICLE The left ventricle is normal size in size. There is normal left ventricular wall thickness. The left ventricular function is normal. The left ventricular ejection fraction is - 60%. There is normal LV segmental wall motion. The patient is in atrial fibrillation. No left ventricle thrombus noted on this study. There is no ventricular septal defect visualized. There is no left ventricular aneurysm. There is no mass noted in the left ventricle. RIGHT VENTRICLE The right ventricle is normal size. There is normal right ventricular wall thickness. The right ventricular systolic function is normal. ATRIA The left atrium is moderately dilated on the 2D study. The right atrium size is normal. The interatrial septum is intact with no evidence for an atrial septal defect. AORTIC VALVE The aortic valve is mildly thickened. No aortic regurgitation is present. There is no aortic valvular stenosis. MITRAL VALVE The mitral valve leaflets are mildly thickened. There is no evidence of mitral valve prolapse. There is no mitral valve stenosis. Mitral regurgitation is trace. TRICUSPID VALVE The tricuspid valve is normal in structure. There is no tricuspid valve regurgitation noted. There is no tricuspid valve prolapse or vegetation. There is no tricuspid valve stenosis. PULMONIC VALVE The pulmonic valve is not well visualized. There is trace pulmonic valvular regurgitation. GREAT VESSELS The aortic root is normal in size. The IVC is normal in size and collapses >50% with inspiration. PERICARDIAL EFFUSION The pericardium appears normal. There is no pleural effusion. <Conclusion> The study is of suboptimal quality. The left ventricle is normal size in size and wall thickness. The left ventricular function is normal. The left ventricular ejection fraction is - 60%. The left atrium is moderately dilated on the 2D study. The mitral and aortic valves are mildly thickened. There is trace mitral regurgitation.
[2018-04-19 06:38] LABS: BLOOD UREA NITROGEN 16 mg/dl (7-17); CALCIUM 9.3 mg/dL (8.4-10.2); GFR AFRICAN-AMERICAN > 60; GFR NON-AFRICAN AMERICAN 60
[2018-04-19] MEDS: Levothyroxine 88 MCG TAB PO SCH (07:07)
[2018-04-19] MEDS: Digoxin 125 mcg (0.125 mg) Tab PO SCH (10:43)
[2018-04-19] MEDS: Pantoprazole 20 mg EC Tab PO SCH (10:45)
[2018-04-19 10:54] LABS: HEMOGLOBIN 10.9 g/dL (12.0-16.0); MEAN CELL VOLUME 88.1 fl (81.0-99.0); MEAN CORPUSCULAR HEMOGLOBIN 30.1 pg (27.0-31.0); MEAN CORPUSCULAR HGB CONC 34.1 g/dL (33.0-37.0); RBC 3.62 Mil/uL (3.80-5.20); RED CELL DISTRIBUTION WIDTH 15.1 % (11.5-14.5); WHITE BLOOD COUNT 5.9 K/uL (4.8-10.8)
--- NOTE | 2018-04-19 10:56 | PQF GENQUE ---
Dr. Peters, Please specify the acuity of diastolic heart failure in your progress notes: i.e. Acute Chronic Acute on chronic Other (please specify) Clinically unable to determine Unknown 04/16 CT Chest: Impression includes: 3. Cardiomegaly and mild alveolar pulmonary edema. See the full report in the EMR ProBNP: 2520->563 04/17 Resident progress note: dxs. include: 1) SOB -2/2 CHF diastolic Propbmp high -lasix 20 mg IV daily -digester hand consult suggested -f/u echo 04/18 Resident progress note: dxs. include: 1)SOB resolved -2/2 CHF diastolic Propbmp normalized today 563 -s/p lasix 20 mg yesterday -digester hand consult appreciated -f/u ech coreg, lasix 20 mg PO daily This form is a permanent part of the medical record Clarification of your documentation is requested to better reflect the severity of illness and intensity of treatment of your patient. Indicators present [] Specify: [] [] Specify: [] [] Specify: [] [] Specify: [] Location in the medical record that reflects the above clinical findings: [] Treatment Provided: [] PHYSICIAN'S RESPONSE Based on your medical judgment of the clinical indicators outlined above please clarify the following: [] Practitioner response [] If unable to determine, please check the box, sign and date. Present On Admission (POA) Indicator: [] Present at the time of admission [] Not present at the time of admission [] Clinically Undetermined In responding to this query, please exercise your independent professional judgment. The fact that a question is asked does not imply that any particular answer is desired or expected. Thank you for your clarification on this documentation. If you have any questions please call. * Thank you, Kathy Gale RN ext. #[phone] MTDD
[2018-04-20 05:30] LABS: HEMOGLOBIN 10.6 g/dL (12.0-16.0); MEAN CELL VOLUME 88.1 fl (81.0-99.0); MEAN CORPUSCULAR HEMOGLOBIN 29.5 pg (27.0-31.0); MEAN CORPUSCULAR HGB CONC 33.5 g/dL (33.0-37.0); RBC 3.59 Mil/uL (3.80-5.20); RED CELL DISTRIBUTION WIDTH 14.6 % (11.5-14.5); WHITE BLOOD COUNT 6.3 K/uL (4.8-10.8)
[2018-04-20] MEDS: Levothyroxine 88 MCG TAB PO SCH (05:57)
[2018-04-20] MEDS: Digoxin 125 mcg (0.125 mg) Tab PO SCH (08:39)
[2018-04-20] MEDS: Pantoprazole 20 mg EC Tab PO SCH (08:41)
[2018-04-20] MEDS: Sodium Chloride 0.9% 500 ML IV SCH ×3 (10:14→16:08)
--- NOTE | 2018-04-20 12:49 | CP.PCM.PCO ---
Assessment & Plan - Assessment and Plan (Free Text) Assessment: patient will benefit from Physical Therapy inpatient 2nd dizziness, deconditioning, hx falls continue to monitor cbc, bmp in TCU, pt . started on Eliquis 2.5 mg po bid for HxPAF, PE Hold Imdur/ Lasix continue current meds in Reconciliation cont. PT f/u wit and
--- NOTE | 2018-04-20 15:51 | CP.PCM.PN ---
Subjective - Date & Time of Evaluation Date of Evaluation: 04/20/18 Time of Evaluation: 10:00 - Subjective Subjective: Patient seen and examined this morning at bedside w/ Dr. Peters. There are no acute events overnight, NAD. The patient reports feeling better and denies any more episodes of blood in stool. The patient denies any episodes of dizziness. The patient denies headaches, chest pain, SOB, abdominal pain, nausea, vomiting, diarrhea, dysuria, or fever. Objective - Vital Signs/Intake and Output Vital Signs (last 24 hours): Temp Pulse Resp BP Pulse Ox 97.8 F 65 18 106/62 100 04/20/18 12:33 04/20/18 12:33 04/20/18 12:33 04/20/18 12:33 04/20/18 12:33 - Medications Medications: Current Medications Apixaban (Eliquis) 2.5 mg PO BID [facility] PRN Reason: Protocol Atorvastatin Calcium (Lipitor) 10 mg PO HS [facility] Carvedilol (Coreg) 3.125 mg PO Q12H [facility] Last Admin: 04/20/18 08:38 Dose: 3.125 mg Digoxin (Digoxin) 0.125 mg PO DAILY [facility] Last Admin: 04/20/18 08:39 Dose: 0.125 mg Escitalopram Oxalate (Lexapro) 10 mg PO DAILY [facility] Last Admin: 04/20/18 08:41 Dose: 10 mg Escitalopram Oxalate (Lexapro) 5 mg PO QPM [facility] Last Admin: 04/19/18 17:17 Dose: 5 mg Furosemide (Lasix) 20 mg PO DAILY [facility] Last Admin: 04/17/18 13:23 Dose: 20 mg Sodium Chloride (Sodium Chloride 0.9%) 500 mls @ 110 mls/hr IV .Q4H33M [facility] Last Admin: 04/20/18 10:17 Dose: 110 mls/hr Lactulose (Enulose) 10 gm PO DAILY PRN PRN Reason: Constipation Levothyroxine Sodium (Synthroid) 88 mcg PO DAILY@0630 [facility] Last Admin: 04/20/18 05:57 Dose: 88 mcg Pantoprazole Sodium (Protonix Ec Tab) 20 mg PO DAILY [facility] Last Admin: 04/20/18 08:41 Dose: 20 mg Sitagliptin Phosphate (Januvia) 100 mg PO DAILY [facility] Last Admin: 04/20/18 08:40 Dose: 100 mg - Labs Labs: 04/20/18 05:07 04/19/18 05:05 PT 24.5 Seconds (9.8-13.1) H 04/18/18 04:25 INR 2.2 (0.9-1.2) H 04/18/18 04:25 APTT 39.8 Seconds (25.6-37.1) H 04/18/18 04:25 - Constitutional Appears: Non-toxic, No Acute Distress - Head Exam Head Exam: ATRAUMATIC, NORMAL INSPECTION, NORMOCEPHALIC - Eye Exam Eye Exam: Normal appearance - ENT Exam ENT Exam: Mucous Membranes Moist - Neck Exam Neck Exam: Full ROM. absent: Tenderness - Respiratory Exam Respiratory Exam: Clear to Ausculation Bilateral. absent: Accessory Muscle Use , Decreased Breath Sounds, Rales, Rhonchi, Wheezes, Respiratory Distress - Cardiovascular Exam Cardiovascular Exam: REGULAR RHYTHM, RRR. absent: Tachycardia, Rubs, Murmur - GI/Abdominal Exam GI & Abdominal Exam: Soft, Normal Bowel Sounds. absent: Distended, Tenderness - Extremities Exam Extremities Exam: Normal Inspection. absent: Calf Tenderness - Neurological Exam Neurological Exam: Alert, Awake, CN II-XII Intact, Normal Gait, Oriented x3 - Skin Skin Exam: Dry, Intact, Normal Color, Warm Assessment and Plan (1) Dizziness Status: Acute (2) HTN (hypertension) Status: Chronic (3) Coronary artery disease Status: Chronic (4) Hypothyroidism Status: Chronic (5) Diabetes mellitus type 2 in nonobese Status: Chronic - Assessment and Plan (Free Text) Plan: c/w present management afebrile non-tachycardic, normotensive cardiology recommendations appreciated neurology recommendations appreciated patient to be discharged to TCU tomorrow
[2018-04-20] MEDS: Hydrocortisone 2.5% (Rectal) CREAM PR SCH (21:37)
[2018-04-21] MEDS: Levothyroxine 88 MCG TAB PO SCH (05:41)
[2018-04-21] MEDS: Hydrocortisone 2.5% (Rectal) CREAM PR SCH ×2 (09:00→17:08)
[2018-04-21] MEDS: Pantoprazole 20 mg EC Tab PO SCH (09:01)
[2018-04-21] MEDS: Digoxin 125 mcg (0.125 mg) Tab PO SCH (09:01)
--- NOTE | 2018-04-21 11:27 | CP.PCM.PN ---
Subjective - Date & Time of Evaluation Date of Evaluation: 04/21/18 Time of Evaluation: 11:20 - Subjective Subjective: patient had an episode of dizziness while going to the bathroom. heart rate was in the 120s. Objective - Vital Signs/Intake and Output Vital Signs (last 24 hours): Temp Pulse Resp BP Pulse Ox 98 F 106 H 18 149/78 95 04/21/18 07:58 04/21/18 09:00 04/21/18 07:58 04/21/18 09:00 04/21/18 07:58 - Medications Medications: Current Medications Apixaban (Eliquis) 2.5 mg PO BID [facility] PRN Reason: Protocol Last Admin: 04/21/18 09:01 Dose: 2.5 mg Atorvastatin Calcium (Lipitor) 10 mg PO HS [facility] Last Admin: 04/20/18 21:36 Dose: 10 mg Carvedilol (Coreg) 3.125 mg PO Q12H [facility] Last Admin: 04/21/18 09:00 Dose: 3.125 mg Digoxin (Digoxin) 0.125 mg PO DAILY [facility] Last Admin: 04/21/18 09:01 Dose: 0.125 mg Escitalopram Oxalate (Lexapro) 10 mg PO DAILY [facility] Last Admin: 04/21/18 09:01 Dose: 10 mg Escitalopram Oxalate (Lexapro) 5 mg PO QPM [facility] Last Admin: 04/20/18 17:13 Dose: 5 mg Furosemide (Lasix) 20 mg PO DAILY [facility] Last Admin: 04/17/18 13:23 Dose: 20 mg Hydrocortisone (Anusol-Hc) 1 applic SD BID [facility] Last Admin: 04/21/18 09:00 Dose: 1 applic Sodium Chloride (Sodium Chloride 0.9%) 500 mls @ 110 mls/hr IV .Q4H33M [facility] Last Admin: 04/20/18 16:08 Dose: 110 mls/hr Lactulose (Enulose) 10 gm PO DAILY PRN PRN Reason: Constipation Levothyroxine Sodium (Synthroid) 88 mcg PO DAILY@0630 [facility] Last Admin: 04/21/18 05:41 Dose: 88 mcg Pantoprazole Sodium (Protonix Ec Tab) 20 mg PO DAILY [facility] Last Admin: 04/21/18 09:01 Dose: 20 mg Sitagliptin Phosphate (Januvia) 100 mg PO DAILY [facility] Last Admin: 04/21/18 09:01 Dose: 100 mg - Labs Labs: 04/20/18 05:07 04/19/18 05:05 PT 24.5 Seconds (9.8-13.1) H 04/18/18 04:25 INR 2.2 (0.9-1.2) H 04/18/18 04:25 APTT 39.8 Seconds (25.6-37.1) H 04/18/18 04:25 - Constitutional Appears: Non-toxic - Head Exam Head Exam: NORMAL INSPECTION - Eye Exam Eye Exam: Normal appearance - ENT Exam ENT Exam: Mucous Membranes Moist - Neck Exam Neck Exam: Full ROM - Respiratory Exam Respiratory Exam: Decreased Breath Sounds - Cardiovascular Exam Cardiovascular Exam: Tachycardia, Irregular Rhythm - Rectal Exam Rectal Exam: Deferred - Extremities Exam Extremities Exam: absent: Pedal Edema - Back Exam Back Exam: NORMAL INSPECTION - Neurological Exam Neurological Exam: Alert - Psychiatric Exam Psychiatric exam: Normal Affect - Skin Skin Exam: Normal Color Assessment and Plan (1) HTN (hypertension) Assessment & Plan: blood pressure is elevated. increase Coreg Status: Chronic (2) Atrial fibrillation Assessment & Plan: will increase Coreg for rate control. no further bleeding. on low dose Eliquis Status: Acute
--- NOTE | 2018-04-21 16:48 | CARD ---
APPROVED REPORT EKG Measurement Heart [id number] MS 178P [id number] <Conclusion> Atrial-paced rhythm ST & T wave abnormality, consider anterior ischemia Abnormal ECG
[2018-04-21] MEDS: Sodium Chloride 0.9% 500 ML IV SCH (17:53)
--- NOTE | 2018-04-21 17:54 | CP.PCM.PN ---
Subjective - Date & Time of Evaluation Date of Evaluation: 04/21/18 Time of Evaluation: 17:53 - Subjective Subjective: Patient was scheduled to be discharged to subacute rehab when earlier had severe dizziness while in the bathroom She was noted to have significant orthostasis. Objective - Vital Signs/Intake and Output Vital Signs (last 24 hours): Temp Pulse Resp BP Pulse Ox 97.6 F 107 H 20 126/84 99 04/21/18 16:00 04/21/18 16:00 04/21/18 16:00 04/21/18 16:00 04/21/18 16:00 Intake and Output: 04/21/18 04/21/18 06:59 18:59 Intake Total 1700 Balance 1700 - Medications Medications: Current Medications Apixaban (Eliquis) 2.5 mg PO BID [facility] PRN Reason: Protocol Last Admin: 04/21/18 17:08 Dose: 2.5 mg Atorvastatin Calcium (Lipitor) 10 mg PO HS [facility] Last Admin: 04/20/18 21:36 Dose: 10 mg Carvedilol (Coreg) 3.125 mg PO Q12H [facility] Last Admin: 04/21/18 09:00 Dose: 3.125 mg Digoxin (Digoxin) 0.125 mg PO DAILY [facility] Last Admin: 04/21/18 09:01 Dose: 0.125 mg Escitalopram Oxalate (Lexapro) 10 mg PO DAILY [facility] Last Admin: 04/21/18 09:01 Dose: 10 mg Escitalopram Oxalate (Lexapro) 5 mg PO QPM [facility] Last Admin: 04/21/18 17:09 Dose: 5 mg Furosemide (Lasix) 20 mg PO DAILY [facility] Last Admin: 04/17/18 13:23 Dose: 20 mg Hydrocortisone (Anusol-Hc) 1 applic [place] BID [facility] Last Admin: 04/21/18 17:08 Dose: 1 applic Sodium Chloride (Sodium Chloride 0.9%) 500 mls @ 60 mls/hr IV .Q8H20M [facility] Lactulose (Enulose) 10 gm PO DAILY PRN PRN Reason: Constipation Levothyroxine Sodium (Synthroid) 88 mcg PO DAILY@0630 [facility] Last Admin: 04/21/18 05:41 Dose: 88 mcg Pantoprazole Sodium (Protonix Ec Tab) 20 mg PO DAILY [facility] Last Admin: 04/21/18 09:01 Dose: 20 mg Sitagliptin Phosphate (Januvia) 100 mg PO DAILY [facility] Last Admin: 04/21/18 09:01 Dose: 100 mg - Labs Labs: 04/20/18 05:07 04/19/18 05:05 PT 24.5 Seconds (9.8-13.1) H 04/18/18 04:25 INR 2.2 (0.9-1.2) H 04/18/18 04:25 APTT 39.8 Seconds (25.6-37.1) H 04/18/18 04:25
[2018-04-21 20:15] VITALS: RESP 18
[2018-04-22] MEDS: Sodium Chloride 0.9% 500 ML IV SCH ×5 (00:45→21:21)
[2018-04-22] MEDS: Levothyroxine 88 MCG TAB PO SCH (06:18)
[2018-04-22] MEDS: Hydrocortisone 2.5% (Rectal) CREAM PR SCH ×2 (08:40→17:00)
[2018-04-22] MEDS: Digoxin 125 mcg (0.125 mg) Tab PO SCH (08:42)
[2018-04-22] MEDS: Pantoprazole 20 mg EC Tab PO SCH (08:43)
--- NOTE | 2018-04-22 13:07 | CP.PCM.PN ---
Subjective - Date & Time of Evaluation Date of Evaluation: 04/22/18 Time of Evaluation: 12:45 - Subjective Subjective: patient has no chest pain or dyspnea. had episodic dizziness Objective - Vital Signs/Intake and Output Vital Signs (last 24 hours): Temp Pulse Resp BP Pulse Ox 97.4 F L 62 18 114/58 L 100 04/22/18 12:30 04/22/18 12:30 04/22/18 12:30 04/22/18 12:30 04/22/18 12:30 - Medications Medications: Current Medications Apixaban (Eliquis) 2.5 mg PO BID [facility] PRN Reason: Protocol Last Admin: 04/22/18 08:42 Dose: 2.5 mg Atorvastatin Calcium (Lipitor) 10 mg PO HS [facility] Last Admin: 04/21/18 21:20 Dose: 10 mg Carvedilol (Coreg) 3.125 mg PO Q12H [facility] Last Admin: 04/22/18 08:41 Dose: 3.125 mg Digoxin (Digoxin) 0.125 mg PO DAILY [facility] Last Admin: 04/22/18 08:42 Dose: 0.125 mg Escitalopram Oxalate (Lexapro) 10 mg PO DAILY [facility] Last Admin: 04/22/18 08:43 Dose: 10 mg Escitalopram Oxalate (Lexapro) 5 mg PO QPM [facility] Last Admin: 04/21/18 17:09 Dose: 5 mg Furosemide (Lasix) 20 mg PO DAILY [facility] Last Admin: 04/17/18 13:23 Dose: 20 mg Hydrocortisone (Anusol-Hc) 1 applic [place] BID [facility] Last Admin: 04/22/18 08:40 Dose: 1 applic Sodium Chloride (Sodium Chloride 0.9%) 500 mls @ 60 mls/hr IV .Q8H20M [facility] Last Admin: 04/22/18 12:04 Dose: 60 mls/hr Lactulose (Enulose) 10 gm PO DAILY PRN PRN Reason: Constipation Levothyroxine Sodium (Synthroid) 88 mcg PO DAILY@0630 [facility] Last Admin: 04/22/18 06:18 Dose: 88 mcg Pantoprazole Sodium (Protonix Ec Tab) 20 mg PO DAILY [facility] Last Admin: 04/22/18 08:43 Dose: 20 mg Sitagliptin Phosphate (Januvia) 100 mg PO DAILY [facility] Last Admin: 04/22/18 08:42 Dose: 100 mg - Labs Labs: 04/20/18 05:07 04/19/18 05:05 PT 24.5 Seconds (9.8-13.1) H 04/18/18 04:25 INR 2.2 (0.9-1.2) H 04/18/18 04:25 APTT 39.8 Seconds (25.6-37.1) H 04/18/18 04:25 - Constitutional Appears: Non-toxic - Head Exam Head Exam: NORMAL INSPECTION - Eye Exam Eye Exam: Normal appearance - ENT Exam ENT Exam: Mucous Membranes Moist - Neck Exam Neck Exam: Normal Inspection - Respiratory Exam Respiratory Exam: Decreased Breath Sounds - Cardiovascular Exam Cardiovascular Exam: Irregular Rhythm - GI/Abdominal Exam GI & Abdominal Exam: Normal Bowel Sounds - Rectal Exam Rectal Exam: Deferred - Extremities Exam Extremities Exam: absent: Pedal Edema - Back Exam Back Exam: NORMAL INSPECTION - Neurological Exam Neurological Exam: Alert - Psychiatric Exam Psychiatric exam: Normal Affect - Skin Skin Exam: Normal Color Assessment and Plan (1) HTN (hypertension) Assessment & Plan: blood pressure control Status: Chronic (2) Atrial fibrillation Assessment & Plan: rate controlled. will need continue digoxin Status: Acute (3) Orthostasis Assessment & Plan: stop lasix. can consider midodrine Status: Acute
--- NOTE | 2018-04-22 13:10 | CP.PCM.PN ---
Subjective - Date & Time of Evaluation Date of Evaluation: 04/22/18 Time of Evaluation: 13:08 - Subjective Subjective: Still with episodes of orthostasis despite less meds. On Lasix. Objective - Vital Signs/Intake and Output Vital Signs (last 24 hours): Temp Pulse Resp BP Pulse Ox 97.4 F L 62 18 114/58 L 100 04/22/18 12:30 04/22/18 12:30 04/22/18 12:30 04/22/18 12:30 04/22/18 12:30 - Medications Medications: Current Medications Apixaban (Eliquis) 2.5 mg PO BID [facility] PRN Reason: Protocol Last Admin: 04/22/18 08:42 Dose: 2.5 mg Atorvastatin Calcium (Lipitor) 10 mg PO HS [facility] Last Admin: 04/21/18 21:20 Dose: 10 mg Carvedilol (Coreg) 3.125 mg PO Q12H [facility] Last Admin: 04/22/18 08:41 Dose: 3.125 mg Digoxin (Digoxin) 0.125 mg PO DAILY [facility] Last Admin: 04/22/18 08:42 Dose: 0.125 mg Escitalopram Oxalate (Lexapro) 10 mg PO DAILY [facility] Last Admin: 04/22/18 08:43 Dose: 10 mg Escitalopram Oxalate (Lexapro) 5 mg PO QPM [facility] Last Admin: 04/21/18 17:09 Dose: 5 mg Furosemide (Lasix) 20 mg PO DAILY [facility] Last Admin: 04/17/18 13:23 Dose: 20 mg Hydrocortisone (Anusol-Hc) 1 applic [place] BID [facility] Last Admin: 04/22/18 08:40 Dose: 1 applic Sodium Chloride (Sodium Chloride 0.9%) 500 mls @ 60 mls/hr IV .Q8H20M [facility] Last Admin: 04/22/18 12:04 Dose: 60 mls/hr Lactulose (Enulose) 10 gm PO DAILY PRN PRN Reason: Constipation Levothyroxine Sodium (Synthroid) 88 mcg PO DAILY@0630 [facility] Last Admin: 04/22/18 06:18 Dose: 88 mcg Pantoprazole Sodium (Protonix Ec Tab) 20 mg PO DAILY [facility] Last Admin: 04/22/18 08:43 Dose: 20 mg Sitagliptin Phosphate (Januvia) 100 mg PO DAILY [facility] Last Admin: 04/22/18 08:42 Dose: 100 mg - Labs Labs: 04/20/18 05:07 04/19/18 05:05 PT 24.5 Seconds (9.8-13.1) H 04/18/18 04:25 INR 2.2 (0.9-1.2) H 04/18/18 04:25 APTT 39.8 Seconds (25.6-37.1) H 04/18/18 04:25 Assessment and Plan - Assessment and Plan (Free Text) Plan: Discussed with Dr Bong king.
[2018-04-23] MEDS: Sodium Chloride 0.9% 500 ML IV SCH (02:00)
[2018-04-23] MEDS: Levothyroxine 88 MCG TAB PO SCH (06:06)
[2018-04-23] MEDS: Pantoprazole 20 mg EC Tab PO SCH (08:23)
[2018-04-23 08:24] VITALS: PULSE 62
[2018-04-23] MEDS: Digoxin 125 mcg (0.125 mg) Tab PO SCH (08:24)
[2018-04-23] MEDS: Hydrocortisone 2.5% (Rectal) CREAM PR SCH (08:26)
[2018-04-23 11:42] VITALS: BP 122/68; PULSE 60; TEMP 97.9; O2SAT 98
--- NOTE | 2018-04-24 07:40 | CP.PCM.DIS ---
Provider - Provider Date of Admission: 04/18/18 14:57 Attending physician: Ishan Peters MD Time Spent in preparation of Discharge (in minutes): 30 Hospital Course - Lab Results Lab Results: Most Recent Lab Values WBC 6.3 K/uL (4.8-10.8) 04/20/18 05:07 RBC 3.59 Mil/uL (3.80-5.20) L 04/20/18 05:07 Hgb 10.6 g/dL (12.0-16.0) L 04/20/18 05:07 Hct 31.7 % (34.0-47.0) L 04/20/18 05:07 MCV 88.1 fl (81.0-99.0) 04/20/18 05:07 MCH 29.5 pg (27.0-31.0) 04/20/18 05:07 MCHC 33.5 g/dL (33.0-37.0) 04/20/18 05:07 RDW 14.6 % (11.5-14.5) H 04/20/18 05:07 Plt Count 170 K/uL (130-400) 04/20/18 05:07 MPV 8.3 fl (7.2-11.7) 04/16/18 12:20 Neut % (Auto) 73.2 % (50.0-75.0) 04/16/18 12:20 Lymph % (Auto) 16.5 % (20.0-40.0) L 04/16/18 12:20 Gila % (Auto) 6.1 % (0.0-10.0) 04/16/18 12:20 Eos % (Auto) 3.5 % (0.0-4.0) 04/16/18 12:20 Baso % (Auto) 0.7 % (0.0-2.0) 04/16/18 12:20 Neut # (Auto) 4.7 K/uL (1.8-7.0) 04/16/18 12:20 Lymph # (Auto) 1.1 K/uL (1.0-4.3) 04/16/18 12:20 Gila # (Auto) 0.4 K/uL (0.0-0.8) 04/16/18 12:20 Eos # (Auto) 0.2 K/uL (0.0-0.7) 04/16/18 12:20 Baso # (Auto) 0.0 K/uL (0.0-0.2) 04/16/18 12:20 PT 24.5 Seconds (9.8-13.1) H 04/18/18 04:25 INR 2.2 (0.9-1.2) H 04/18/18 04:25 APTT 39.8 Seconds (25.6-37.1) H 04/18/18 04:25 D-Dimer, Quantitative 838 ng/mlDDU (0-230) H 04/18/18 04:25 Sodium 140 mmol/l (132-148) 04/19/18 05:05 Potassium 4.2 MMOL/L (3.6-5.0) 04/19/18 05:05 Chloride 104 mmol/L (98-107) 04/19/18 05:05 Carbon Dioxide 28 mmol/L (22-30) 04/19/18 05:05 Anion Gap 12 (10-20) 04/19/18 05:05 BUN 16 mg/dl (7-17) 04/19/18 05:05 Creatinine 0.9 mg/dl (0.7-1.2) 04/19/18 05:05 Est GFR ( Amer) > 60 04/19/18 05:05 Est GFR (Non-Af Amer) 60 04/19/18 05:05 POC Glucose (mg/dL) 251 mg/dL (65-110) H 04/23/18 10:38 Random Glucose 162 mg/dL (65-105) H 04/19/18 05:05 Hemoglobin A1c 6.8 % (4.2-6.5) H 04/18/18 04:25 Calcium 9.3 mg/dL (8.4-10.2) 04/19/18 05:05 Iron 48 ug/dL (37-170) 04/17/18 11:27 TIBC 312 ug/dL (250-450) 04/17/18 11:27 % Saturation 15 % (20-55) L 04/17/18 11:27 Ferritin 29.1 ng/Ml (11.1-264.0) 04/18/18 04:25 Total Bilirubin 0.7 mg/dl (0.2-1.3) 04/16/18 12:20 AST 44 U/L (14-36) H D 04/16/18 12:20 ALT 28 U/L (9-52) 04/16/18 12:20 Alkaline Phosphatase 88 U/L (38-126) 04/16/18 12:20 Troponin I < 0.0120 ng/mL (0.00-0.120) 04/17/18 04:20 NT-Pro-B Natriuret Pep 563 pg/ml (0-900) 04/18/18 04:25 Total Protein 7.1 G/DL (6.3-8.2) 04/16/18 12:20 Albumin 3.6 g/dL (3.5-5.0) 04/16/18 12:20 Globulin 3.4 gm/dL (2.2-3.9) 04/16/18 12:20 Albumin/Globulin Ratio 1.1 (1.0-2.1) 04/16/18 12:20 Triglycerides 267 mg/DL (0-149) H D 04/18/18 04:25 Cholesterol 111 mg/dL (0-199) 04/18/18 04:25 LDL Cholesterol Direct 47 mg/dL (0-129) 04/18/18 04:25 HDL Cholesterol 17 MG/DL (30-70) L 04/18/18 04:25 Vitamin B12 556 pg/mL (239-931) 04/18/18 04:25 Folate 12.7 ng/mL 04/18/18 04:25 Digoxin 0.9 ng/mL (0.8-2.0) 04/16/18 12:20 - Hospital Course Hospital Course: This is an 82 y/o female admitted for chest pain and SOB. Noted to have mild CHF with elevated proBNP During hospitalization she was noted to have episode of rectal bleed , HTn and episodes of orthostatic hypotension. Medications were adjusted. cardiology was consulted. imdur and Lasix were discontinued and xarelto was stopped. She was placed on low dose Eliquis.and low dose carvedilol. Discharge Exam - Head Exam Head Exam: NORMAL INSPECTION - Eye Exam Eye Exam: Normal appearance - Respiratory Exam Respiratory Exam: NORMAL BREATHING PATTERN - Cardiovascular Exam Cardiovascular Exam: REGULAR RHYTHM - GI/Abdominal Exam GI & Abdominal Exam: Normal Bowel Sounds - Neurological Exam Neurological exam: CN II-XII Intact, Oriented x3 - Psychiatric Exam Psychiatric exam: Anxious - Skin Skin Exam: Normal Color Discharge Plan - Follow Up Plan Condition: STABLE Disposition: TRANSF TO SNF Instructions: High Blood Pressure (DC), Chest Pain (DC) Additional Instructions: discharge to TCU for further Pt and monitoring. Referrals: Ishan Peters MD [Family Provider] -
== END 2018-04-23 12:49 | DRG 312 ==
LOC: H.ER 11:34 → H.ERHOLD 14:01 → H.TEL 17:47 → OBSVTOIN 04-18 14:57 → H.TEL 04-22 16:39
PROVIDERS: ADMIT Family Medicine; ATTEND Family Medicine
DX: I95.1 Orthostatic hypotension (principal); I50.32 Chronic diastolic (congestive) heart failure; R79.1 Abnormal coagulation profile; T50.1X5A Adverse effect of loop [high-ceiling] diuretics, initial encounter; Z79.01 Long term (current) use of anticoagulants; Z86.711 Personal history of pulmonary embolism; Z90.49 Acquired absence of other specified parts of digestive tract; Z95.0 Presence of cardiac pacemaker; Z95.1 Presence of aortocoronary bypass graft; F32.9 Major depressive disorder, single episode, unspecified; F41.9 Anxiety disorder, unspecified; F45.9 Somatoform disorder, unspecified; K29.70 Gastritis, unspecified, without bleeding; M19.90 Unspecified osteoarthritis, unspecified site; R79.89 Other specified abnormal findings of blood chemistry; Z79.84 Long term (current) use of oral hypoglycemic drugs; Z79.899 Other long term (current) drug therapy; R07.9 Chest pain, unspecified; D64.9 Anemia, unspecified; E03.9 Hypothyroidism, unspecified; E11.65 Type 2 diabetes mellitus with hyperglycemia; E78.00 Pure hypercholesterolemia, unspecified; I11.0 Hypertensive heart disease with heart failure; I25.10 Atherosclerotic heart disease of native coronary artery without angina pectoris; Y92.9 Unspecified place or not applicable; I48.91 Unspecified atrial fibrillation

== ENCOUNTER 2018-04-23 12:44 | Inpatient (IN) | payer OTHER ==
[2018-04-23 12:56] VITALS: BMI 28.3
[2018-04-23] MEDS ORDERED: Lactulose 10 gm/15 ml Syrup PO PRN (14:03)
[2018-04-23] MEDS: Hydrocortisone 2.5% (Rectal) CREAM PR SCH (17:50)
[2018-04-24] MEDS: Levothyroxine 88 MCG TAB PO SCH (06:18)
[2018-04-24] MEDS: Digoxin 125 mcg (0.125 mg) Tab PO SCH (08:12)
[2018-04-24] MEDS: Pantoprazole 20 mg EC Tab PO SCH (08:15)
[2018-04-24] MEDS: Hydrocortisone 2.5% (Rectal) CREAM PR SCH ×2 (08:51→17:46)
--- NOTE | 2018-04-24 10:24 | CP.PCM.HP ---
History of Present Illness - History of Present Illness History of Present Illness: This is an 82 y/o female with hx of CAD atrial fibrilation, DM 2 HTN, anxiety and orthostatic hypotension, rectal bleed admitted for further rehab and therapy. She was initially admitted to [facility] for mild CHF started on Laix ., She was also on Imdur carvedilol and Xarelto. She started having episodes of orthostatic hypotension, had a rectal bleed and noted drop in Hgb. Her Lasix and xarelto was held temporarily then switched to Eliquis. Carvedilol was decreased in dose.. Despite these however, her orthostasis was persistent hence started on PT , started on Midodrine and discharged to TCU for further rehab PT and monitor and manage orthostasis as sh could not be discharged directly to home due to high risk of fall from the hypotension. Present on Admission - Present on Admission Any Indicators Present on Admission: No History of DVT/PE: No History of Uncontrolled Diabetes: No Urinary Catheter: No Decubitus Ulcer Present: No Review of Systems - Cardiovascular Cardiovascular: Lightheadedness Additional comments: orthostasis hypotension Past Patient History - Infectious Disease Hx of Infectious Diseases: None - Tetanus Immunizations Tetanus Immunization: Unknown - Past Medical History & Family History Past Medical History?: Yes - Past Social History Smoking Status: Never Smoked - CARDIAC Hx Cardiac Disorders: No Hx Atrial Fibrillation: No Hx Cardia Arrhythmia: No Hx Congestive Heart Failure: No Hx Hypercholesterolemia: Yes Hx Hypertension: Yes Hx Pacemaker: Yes - PULMONARY Hx Respiratory Disorders: Yes Hx Emphysema: No Hx Pulmonary Embolism: Yes - NEUROLOGICAL Hx Neurological Disorder: No Hx Alzheimer's Disease: No - HEENT Hx HEENT Problems: No - RENAL Hx Chronic Kidney Disease: No - ENDOCRINE/METABOLIC Hx Endocrine Disorders: No Hx Diabetes Mellitus Type 2: Yes Hx Hypothyroidism: Yes - HEMATOLOGICAL/ONCOLOGICAL Hx Blood Disorders: No Hx AIDS: No Hx Human Immunodeficiency Virus (HIV): No - INTEGUMENTARY Hx Dermatological Problems: No - MUSCULOSKELETAL/RHEUMATOLOGICAL Hx Musculoskeletal Disorders: No Hx Arthritis: Yes Hx Falls: Yes - GASTROINTESTINAL Hx Diverticulitis: Yes Hx Gastritis: Yes - GENITOURINARY/GYNECOLOGICAL Hx Genitourinary Disorders: No - PSYCHIATRIC Hx Psychophysiologic Disorder: Yes Hx Anxiety: Yes Hx Depression: Yes Hx Substance Use: No - SURGICAL HISTORY Hx Cholecystectomy: Yes Hx Coronary Artery Bypass Graft: Yes Hx Tonsillectomy: Yes - ANESTHESIA Hx Anesthesia: Yes Hx Anesthesia Reactions: No Hx Malignant Hyperthermia: No Meds Allergies/Adverse Reactions: Allergies Allergy/AdvReac Type Severity Reaction Status Date / Time No Known Allergies Allergy Verified 04/23/18 12:56 Physical Exam - Head Exam Head Exam: NORMAL INSPECTION - Eye Exam Eye Exam: Normal appearance - ENT Exam ENT Exam: Mucous Membranes Moist - Respiratory Exam Respiratory Exam: Clear to Auscultation Bilateral - Cardiovascular Exam Cardiovascular Exam: REGULAR RHYTHM - GI/Abdominal Exam GI & Abdominal Exam: Normal Bowel Sounds - Neurological Exam Neurological exam: CN II-XII Intact, Oriented x3 - Psychiatric Exam Psychiatric exam: Normal Mood Results - Vital Signs Recent Vital Signs: Last Vital Signs Temp 98.4 F 04/23/18 20:36 Pulse 107 H 04/24/18 08:10 Resp 20 04/23/18 20:36 BP 145/81 04/24/18 08:10 Pulse Ox 97 04/23/18 20:36 - Labs Labs: Laboratory Results - last 24 hr 04/23/18 04/24/18 20:25 06:18 POC Glucose (mg/dL) 216 H 173 H Assessment & Plan (1) Orthostatic hypotension Status: Acute (2) Atrial fibrillation Status: Acute (3) Pre-syncope Status: Acute (4) Anxiety attack Status: Chronic (5) Diabetes mellitus type 2 in nonobese Status: Chronic (6) HTN (hypertension) Status: Chronic (7) Hypothyroidism Status: Chronic - Assessment and Plan (Free Text) Plan: Start Phys therapy increase Midodrine to tid compression stocking Eliquis ambulate with assistance cont all other meds.
[2018-04-24 16:35] VITALS: RESP 20
--- NOTE | 2018-04-24 20:56 | CP.PCM.CON ---
History of Present Illness - History of Present Illness History of Present Illness: I was asked to evaluate patient by Dr Peters Patient is 82 year old female with a history of atrial fibrillation and PPM who presents for rehab. She was admitted to [facility] with weakness hypertension and orthostasis. She currnetly denies chest pain or dyspanea. Review of Systems - Constitutional Constitutional: absent: As Per HPI, Anorexia, Chills, Daytime Sleepiness, Excessive Sweating, Fatigue, Fever, Frequent Falls, Headache, Increased Appetite , Lethargy, Malaise, Night Sweats, Snoring, Sleep Apnea, Weight Gain, Weight Loss, Weakness, Other - EENT Eyes: absent: As Per HPI, Blind Spots, Blurred Vision, Change in Vision, Decreased Night Vision, Diplopia, Discharge, Dry Eye, Exophthalmos, Floaters, Irritation, Itchy Eyes, Loss of Peripheral Vision, Pain, Photophobia, Requires Corrective Lenses, Sees Flashes, Spots in Vision, Tunnel Vision, Other Visual Disturbances, Loss of Vision, Other Ears: absent: As Per HPI, Decreased Hearing, Ear Discharge, Ear Pain, Tinnitus, Abnormal Hearing, Disequilibrium, Dizziness, Other Nose/Mouth/Throat: absent: As Per HPI, Epistaxis, Nasal Congestion, Nasal Discharge, Nasal Obstruction, Nasal Trauma, Nose Pain, Post Nasal Drip, Sinus Pain, Sinus Pressure, Bleeding Gums, Change in Voice, Dental Pain, Dry Mouth, Dysphagia, Halitosis, Hoarsness, Lip Swelling, Mouth Lesions, Mouth Pain, Odynophagia, Sore Throat, Throat Swelling, Tongue Swelling, Facial Pain, Neck Pain, Neck Mass, Other - Cardiovascular Cardiovascular: absent: As Per HPI, Acrocyanosis, Chest Pain, Chest Pain at Rest , Chest Pain with Activity, Claudication, Diaphoresis, Dyspnea, Dyspnea on Exertion, Edema, Irregular Heart Rhythm, Pain Radiating to Arm/Neck/Jaw, Leg Edema, Leg Ulcers, Lightheadedness, Orthopnea, Palpitations, Paroxysmal Nocturnal Dyspnea, Pedal Edema, Radiating Pain, Rapid Heart Rate, Slow Heart Rate, Syncope, Other - Respiratory Respiratory: absent: As Per HPI, Cough, Dyspnea, Hemoptysis, Dyspnea on Exertion , Wheezing, Snoring, Stridor, Pain on Inspiration, Chest Congestion, Excessive Mucous Production, Change in Mucous Color, Pain with Coughing, Other - Gastrointestinal Gastrointestinal: absent: As Per HPI, Abdominal Pain, Belching, Bloating, Change in Bowel Habits, Change in Stool Character, Coffee Ground Emesis, Constipation, Cramping, Diarrhea, Dyspepsia, Dysphagia, Early Satiety, Excessive Flatus, Fecal Incontinence, Heartburn, Hematemesis, Hematochezia, Loose Stools, Melena, Nausea, Odynophagia, Temesmus, Vomiting, Other - Genitourinary Genitourinary: absent: As Per HPI, Change in Urinary Stream, Difficulty Urinating, Dysuria, Flank Pain, Hematuria, Pyuria, Nocturia, Urinary Incontinence, Urinary Frequency, Urinary Hesitance, Urinary Urgency, Voiding Freq/Small Amts, Freq UTI, Hx Renal/Bladder Calculi, Hx /Renal Surgery, Bladder Distension, Other - Musculoskeletal Musculoskeletal: absent: As Per HPI, Abnormal Gait, Arthralgias, Atrophy, Back Pain, Deformity, Joint Swelling, Limited Range of Motion, Loss of Height, Muscle Cramps, Muscle Weakness, Myalgias, Neck Pain, Numbness, Radiating Pain into Limb, Stiffness, Tingling, Other - Integumentary Integumentary: absent: As Per HPI, Acne, Alopecia, Bleeding Lesions, Change in Hair, Change in Nails, Change in Pigmentation, Changing Lesions, Dry Skin, Erythema, Furuncle, Hirsutism, Lesions, New Lesions, Non-Healing Lesions, Photosensitivity, Pruritus, Rash, Skin Pain, Skin Ulcer, Sores, Striae, Swelling , Unusual Bruising, Wounds, Jaundice, Other - Neurological Neurological: absent: As Per HPI, Abnormal Gait, Abnormal Hearing, Abnormal Movements, Abnormal Speech, Behavioral Changes, Burning Sensations, Confusion, Convulsions, Disequilibrium, Dizziness, Numbness, Focal Weakness, Frequent Falls , Headaches, Lack of Coordination, Loss of Vision, Memory Loss, Paresthesias, Radicular Pain, Restless Legs, Sensory Deficit, Syncope, Tingling, Tremor, Vertigo, Weakness, Other Visual Disturbances, Other - Psychiatric Psychiatric: absent: As Per HPI, Abnormal Sleep Pattern, Anhedonia, Anxiety, Auditory Hallucinations, Behavioral Changes, Change in Appetite, Change in Libido, Confusion, Depression, Difficulty Concentrating, Hallucinations, Homicidal Ideation, Hopelessness, Irritability, Memory Loss, Mood Swings, Panic Attacks, Paranoia, Suicidal Ideation, Visual Hallucinations, Tactile Hallucinations, Other - Endocrine Endocrine: absent: As Per HPI, Change in Body Appearance, Change in Libido, Cold Intolorance, Deepening of Voice, Excessive Sweating, Fatigue, Flushing, Heat Intolorance, Increase in Ring/Shoe/Hat Size, Palpitations, Polydipsia, Polyphagia, Polyuria, Other - Hematologic/Lymphatic Hematologic: absent: As Per HPI, Easy Bleeding, Easy Bruising, Lymphadenopathy, Other Past Patient History - Infectious Disease Hx of Infectious Diseases: None - Tetanus Immunizations Tetanus Immunization: Unknown - Past Medical History & Family History Past Medical History?: Yes - Past Social History Smoking Status: Never Smoked - CARDIAC Hx Cardiac Disorders: No Hx Atrial Fibrillation: No Hx Cardia Arrhythmia: No Hx Congestive Heart Failure: No Hx Hypercholesterolemia: Yes Hx Hypertension: Yes Hx Pacemaker: Yes - PULMONARY Hx Respiratory Disorders: Yes Hx Emphysema: No Hx Pulmonary Embolism: Yes - NEUROLOGICAL Hx Neurological Disorder: No Hx Alzheimer's Disease: No - HEENT Hx HEENT Problems: No - RENAL Hx Chronic Kidney Disease: No - ENDOCRINE/METABOLIC Hx Endocrine Disorders: No Hx Diabetes Mellitus Type 2: Yes Hx Hypothyroidism: Yes - HEMATOLOGICAL/ONCOLOGICAL Hx Blood Disorders: No Hx AIDS: No Hx Human Immunodeficiency Virus (HIV): No - INTEGUMENTARY Hx Dermatological Problems: No - MUSCULOSKELETAL/RHEUMATOLOGICAL Hx Musculoskeletal Disorders: No Hx Arthritis: Yes Hx Falls: Yes - GASTROINTESTINAL Hx Diverticulitis: Yes Hx Gastritis: Yes - GENITOURINARY/GYNECOLOGICAL Hx Genitourinary Disorders: No - PSYCHIATRIC Hx Psychophysiologic Disorder: Yes Hx Anxiety: Yes Hx Depression: Yes Hx Substance Use: No - SURGICAL HISTORY Hx Cholecystectomy: Yes Hx Coronary Artery Bypass Graft: Yes Hx Tonsillectomy: Yes - ANESTHESIA Hx Anesthesia: Yes Hx Anesthesia Reactions: No Hx Malignant Hyperthermia: No Meds Allergies/Adverse Reactions: Allergies Allergy/AdvReac Type Severity Reaction Status Date / Time No Known Allergies Allergy Verified 04/23/18 12:56 - Medications Medications: Current Medications Apixaban (Eliquis) 2.5 mg PO BID [facility] PRN Reason: Protocol Last Admin: 04/24/18 17:48 Dose: 2.5 mg Atorvastatin Calcium (Lipitor) 10 mg PO HS [facility] Last Admin: 04/23/18 21:29 Dose: 10 mg Carvedilol (Coreg) 3.125 mg PO Q12@844,2044 [facility] Last Admin: 04/24/18 08:10 Dose: 3.125 mg Digoxin (Digoxin) 0.125 mg PO DAILY [facility] Last Admin: 04/24/18 08:12 Dose: 0.125 mg Escitalopram Oxalate (Lexapro) 5 mg PO QPM [facility] Last Admin: 04/24/18 17:48 Dose: 5 mg Escitalopram Oxalate (Lexapro) 10 mg PO DAILY [facility] Last Admin: 04/24/18 08:14 Dose: 10 mg Hydrocortisone (Anusol-Hc) 1 applic [place] BID [facility] Last Admin: 04/24/18 17:46 Dose: 1 applic Lactulose (Enulose) 10 gm PO DAILY PRN PRN Reason: Constipation Levothyroxine Sodium (Synthroid) 88 mcg PO DAILY@0630 [facility] Last Admin: 04/24/18 06:18 Dose: 88 mcg Midodrine (Proamatine) 2.5 mg PO TID [facility] Last Admin: 04/24/18 17:47 Dose: 2.5 mg Pantoprazole Sodium (Protonix Ec Tab) 20 mg PO DAILY [facility] Last Admin: 04/24/18 08:15 Dose: 20 mg Sitagliptin Phosphate (Januvia) 100 mg PO DAILY [facility] Last Admin: 04/24/18 08:13 Dose: 100 mg Physical Exam - Constitutional Appears: Non-toxic - Head Exam Head Exam: NORMAL INSPECTION - Eye Exam Eye Exam: Normal appearance - ENT Exam ENT Exam: Mucous Membranes Moist - Neck Exam Neck exam: Positive for: Full Rom - Respiratory Exam Respiratory Exam: Decreased Breath Sounds - Cardiovascular Exam Cardiovascular Exam: Irregular Rhythm - GI/Abdominal Exam GI & Abdominal Exam: Normal Bowel Sounds - Rectal Exam Rectal Exam: Deferred - Extremities Exam Extremities exam: Negative for: tenderness - Back Exam Back exam: NORMAL INSPECTION - Neurological Exam Neurological exam: Alert - Psychiatric Exam Psychiatric exam: Normal Mood - Skin Skin Exam: Normal Color Results - Vital Signs Recent Vital Signs: Last Vital Signs Temp 97.0 F L 04/24/18 16:34 Pulse 101 H 04/24/18 16:34 Resp 20 04/24/18 16:34 BP 119/63 04/24/18 16:34 Pulse Ox 95 04/24/18 16:34 - Labs Labs: Laboratory Results - last 24 hr 04/24/18 04/24/18 04/24/18 06:18 12:12 16:25 POC Glucose (mg/dL) 173 H 218 H 169 H - EKG Data EKG Interpreted by: Myself Assessment & Plan (1) Atrial fibrillation Assessment and Plan: chronic. rate is controlled. will monitor for signs of bleeding. volume status is controlled. Status: Acute
[2018-04-25] MEDS: Levothyroxine 88 MCG TAB PO SCH (06:19)
[2018-04-25] MEDS: Digoxin 125 mcg (0.125 mg) Tab PO SCH (09:12)
[2018-04-25] MEDS: Pantoprazole 20 mg EC Tab PO SCH (09:13)
[2018-04-25] MEDS: Hydrocortisone 2.5% (Rectal) CREAM PR SCH ×2 (09:14→16:36)
--- NOTE | 2018-04-25 12:08 | CP.PCM.PN ---
Subjective - Date & Time of Evaluation Date of Evaluation: 04/25/18 Time of Evaluation: 10:05 - Subjective Subjective: Patient seen and examined this morning at bedside w/ Dr. Peters. There are non acute events overnight, NAD. The patient reported mild dizziness this morning but otherwise has no other complaints. The patient is participating in PT w/o issues. The patient denies headaches, chest pain, SOB,a bdominal pain, nausea, vomiting, diarrhea, dysuria, or fever. Objective - Vital Signs/Intake and Output Vital Signs (last 24 hours): Temp Pulse Resp BP Pulse Ox 97.6 F 63 20 120/47 L 98 04/25/18 07:54 04/25/18 09:16 04/25/18 07:54 04/25/18 09:16 04/25/18 07:54 - Medications Medications: Current Medications Apixaban (Eliquis) 2.5 mg PO BID [facility] PRN Reason: Protocol Last Admin: 04/25/18 09:14 Dose: 2.5 mg Atorvastatin Calcium (Lipitor) 10 mg PO HS [facility] Last Admin: 04/24/18 21:06 Dose: 10 mg Carvedilol (Coreg) 3.125 mg PO Q12@0845,5 [facility] Last Admin: 04/25/18 09:16 Dose: 3.125 mg Digoxin (Digoxin) 0.125 mg PO DAILY [facility] Last Admin: 04/25/18 09:12 Dose: 0.125 mg Escitalopram Oxalate (Lexapro) 5 mg PO QPM [facility] Last Admin: 04/24/18 17:48 Dose: 5 mg Escitalopram Oxalate (Lexapro) 10 mg PO DAILY [facility] Last Admin: 04/25/18 09:13 Dose: 10 mg Hydrocortisone (Anusol-Hc) 1 applic [place] BID [facility] Last Admin: 04/25/18 09:14 Dose: 1 applic Lactulose (Enulose) 10 gm PO DAILY PRN PRN Reason: Constipation Levothyroxine Sodium (Synthroid) 88 mcg PO DAILY@0630 [facility] Last Admin: 04/25/18 06:19 Dose: 88 mcg Midodrine (Proamatine) 2.5 mg PO TID [facility] Last Admin: 04/25/18 09:12 Dose: 2.5 mg Pantoprazole Sodium (Protonix Ec Tab) 20 mg PO DAILY [facility] Last Admin: 04/25/18 09:13 Dose: 20 mg Sitagliptin Phosphate (Januvia) 100 mg PO DAILY [facility] Last Admin: 04/25/18 09:13 Dose: 100 mg - Constitutional Appears: Non-toxic, No Acute Distress - Head Exam Head Exam: ATRAUMATIC, NORMAL INSPECTION, NORMOCEPHALIC - Eye Exam Eye Exam: Normal appearance - ENT Exam ENT Exam: Mucous Membranes Moist - Neck Exam Neck Exam: Full ROM. absent: Tenderness - Respiratory Exam Respiratory Exam: Clear to Ausculation Bilateral. absent: Accessory Muscle Use , Decreased Breath Sounds, Rales, Rhonchi, Wheezes, Respiratory Distress - Cardiovascular Exam Cardiovascular Exam: REGULAR RHYTHM, RRR. absent: Tachycardia - GI/Abdominal Exam GI & Abdominal Exam: Soft, Normal Bowel Sounds. absent: Distended, Tenderness - Extremities Exam Extremities Exam: absent: Calf Tenderness - Neurological Exam Neurological Exam: Alert, Awake, CN II-XII Intact, Oriented x3 - Skin Skin Exam: Dry, Intact, Normal Color, Warm Assessment and Plan (1) Orthostatic hypotension Status: Acute (2) Pre-syncope Status: Acute (3) Atrial fibrillation Status: Chronic (4) Diabetes mellitus type 2 in nonobese Status: Chronic (5) HTN (hypertension) Status: Chronic (6) Hypothyroidism Status: Chronic - Assessment and Plan (Free Text) Plan: c/w present management afebrile, non-tachycardic, normotensive still has significant orthostatic hypotension cardiology recommendations appreciated c/w midodrine 2.5 mg PO TID c/w physical therapy prophylactic measures: DVT Eliquis 2.5 mg PO BID (for Afib) monitor for acute changes
[2018-04-26] MEDS: Levothyroxine 88 MCG TAB PO SCH (05:46)
[2018-04-26] MEDS: Hydrocortisone 2.5% (Rectal) CREAM PR SCH ×2 (09:30→17:05)
[2018-04-26] MEDS: Pantoprazole 20 mg EC Tab PO SCH (09:30)
[2018-04-26] MEDS: Digoxin 125 mcg (0.125 mg) Tab PO SCH (09:31)
[2018-04-27] MEDS: Levothyroxine 88 MCG TAB PO SCH (06:38)
[2018-04-27] MEDS: Hydrocortisone 2.5% (Rectal) CREAM PR SCH ×2 (09:26→17:10)
[2018-04-27] MEDS: Pantoprazole 20 mg EC Tab PO SCH (09:27)
[2018-04-27] MEDS: Digoxin 125 mcg (0.125 mg) Tab PO SCH (09:27)
--- NOTE | 2018-04-27 14:22 | CP.PCM.PN ---
<Frank Garcia - Last Filed: 04/27/18 14:20> Subjective - Date & Time of Evaluation Date of Evaluation: 04/27/18 Time of Evaluation: 12:00 - Subjective Subjective: Patient seen and examined this morning at bedside w/ Dr. Peters. There are non acute events overnight, NAD. The patient reported mild dizziness this morning but otherwise has no other complaints. The patient is participating in PT w/o issues. The patient denies headaches, chest pain, SOB,a bdominal pain, nausea, vomiting, diarrhea, dysuria, or fever. Objective - Vital Signs/Intake and Output Vital Signs (last 24 hours): Temp Pulse Resp BP Pulse Ox 98.2 F 62 20 143/64 95 04/27/18 08:00 04/27/18 09:27 04/27/18 08:00 04/27/18 09:27 04/27/18 08:00 - Medications Medications: Current Medications Apixaban (Eliquis) 2.5 mg PO BID [facility] PRN Reason: Protocol Last Admin: 04/27/18 09:28 Dose: 2.5 mg Atorvastatin Calcium (Lipitor) 10 mg PO HS [facility] Last Admin: 04/26/18 21:23 Dose: 10 mg Carvedilol (Coreg) 3.125 mg PO Q12@0845,5 [facility] Last Admin: 04/27/18 09:27 Dose: 3.125 mg Digoxin (Digoxin) 0.125 mg PO DAILY [facility] Last Admin: 04/27/18 09:27 Dose: 0.125 mg Escitalopram Oxalate (Lexapro) 5 mg PO QPM [facility] Last Admin: 04/26/18 17:05 Dose: 5 mg Escitalopram Oxalate (Lexapro) 10 mg PO DAILY [facility] Last Admin: 04/27/18 09:27 Dose: 10 mg Hydrocortisone (Anusol-Hc) 1 applic [place] BID [facility] Last Admin: 04/27/18 09:26 Dose: 1 applic Lactulose (Enulose) 10 gm PO DAILY PRN PRN Reason: Constipation Last Admin: 04/26/18 17:16 Dose: 10 gm Levothyroxine Sodium (Synthroid) 88 mcg PO DAILY@0630 [facility] Last Admin: 04/27/18 06:38 Dose: 88 mcg Midodrine (Proamatine) 2.5 mg PO TID [facility] Last Admin: 04/27/18 12:00 Dose: 2.5 mg Pantoprazole Sodium (Protonix Ec Tab) 20 mg PO DAILY [facility] Last Admin: 04/27/18 09:27 Dose: 20 mg Sitagliptin Phosphate (Januvia) 100 mg PO DAILY [facility] Last Admin: 04/27/18 09:27 Dose: 100 mg - Constitutional Appears: Non-toxic, No Acute Distress - Head Exam Head Exam: ATRAUMATIC, NORMAL INSPECTION, NORMOCEPHALIC - Eye Exam Eye Exam: Normal appearance - ENT Exam ENT Exam: Mucous Membranes Moist - Neck Exam Neck Exam: Full ROM. absent: Tenderness - Respiratory Exam Respiratory Exam: Clear to Ausculation Bilateral. absent: Accessory Muscle Use , Decreased Breath Sounds, Rales, Rhonchi, Wheezes, Respiratory Distress - Cardiovascular Exam Cardiovascular Exam: REGULAR RHYTHM. absent: Tachycardia - GI/Abdominal Exam GI & Abdominal Exam: Soft, Normal Bowel Sounds. absent: Distended, Tenderness - Extremities Exam Extremities Exam: Normal Inspection. absent: Calf Tenderness - Neurological Exam Neurological Exam: Alert, Awake, Oriented x3 - Skin Skin Exam: Dry, Intact, Normal Color, Warm Assessment and Plan (1) Orthostatic hypotension Status: Acute (2) Pre-syncope Status: Acute (3) Atrial fibrillation Status: Chronic (4) Diabetes mellitus type 2 in nonobese Status: Chronic (5) HTN (hypertension) Status: Chronic (6) Hypothyroidism Status: Chronic - Assessment and Plan (Free Text) Plan: c/w present management afebrile, non-tachycardic, normotensive still has significant orthostatic hypotension cardiology recommendations appreciated c/w midodrine 2.5 mg PO TID c/w physical therapy prophylactic measures: DVT Eliquis 2.5 mg PO BID (for Afib) monitor for acute changes <Ishan Peters - Last Filed: 04/30/18 09:22> Objective - Vital Signs/Intake and Output Vital Signs (last 24 hours): Temp Pulse Resp BP Pulse Ox 98.2 F 67 20 150/64 94 L 04/30/18 08:41 04/30/18 08:41 04/30/18 08:41 04/30/18 08:41 04/30/18 08:41 - Medications Medications: Current Medications Apixaban (Eliquis) 2.5 mg PO BID [facility] PRN Reason: Protocol Last Admin: 04/30/18 08:18 Dose: 2.5 mg Atorvastatin Calcium (Lipitor) 10 mg PO HS [facility] Last Admin: 04/29/18 21:11 Dose: 10 mg Carvedilol (Coreg) 3.125 mg PO Q12@0845,5 [facility] Last Admin: 04/28/18 08:18 Dose: 3.125 mg Digoxin (Digoxin) 0.125 mg PO DAILY [facility] Last Admin: 04/30/18 08:18 Dose: 0.125 mg Escitalopram Oxalate (Lexapro) 5 mg PO QPM [facility] Last Admin: 04/29/18 18:01 Dose: 5 mg Escitalopram Oxalate (Lexapro) 10 mg PO DAILY [facility] Last Admin: 04/30/18 08:20 Dose: 10 mg Hydrocortisone (Anusol-Hc) 1 applic [place] Q12 [facility] Last Admin: 04/30/18 08:19 Dose: 1 applic Lactulose (Enulose) 10 gm PO DAILY PRN PRN Reason: Constipation Last Admin: 04/26/18 17:16 Dose: 10 gm Levothyroxine Sodium (Synthroid) 88 mcg PO DAILY@0630 [facility] Last Admin: 04/30/18 05:35 Dose: 88 mcg Midodrine (Proamatine) 5 mg PO TID [facility] Last Admin: 04/30/18 08:18 Dose: 5 mg Pantoprazole Sodium (Protonix Ec Tab) 20 mg PO DAILY [facility] Last Admin: 04/30/18 08:18 Dose: 20 mg Sitagliptin Phosphate (Januvia) 100 mg PO DAILY [facility] Last Admin: 04/30/18 08:18 Dose: 100 mg Assessment and Plan (1) Orthostatic hypotension Status: Acute (2) Atrial fibrillation Status: Chronic (3) Pre-syncope Status: Acute (4) Anxiety attack Status: Chronic (5) Diabetes mellitus type 2 in nonobese Status: Chronic (6) HTN (hypertension) Status: Chronic (7) Hypothyroidism Status: Chronic - Assessment and Plan (Free Text) Plan: I was present during evaluation and discussed with Dr Jose nava plans of care an tx start Midodrine for hypotension. Ishan Peters M.D.
--- NOTE | 2018-04-27 17:46 | CP.PCM.PN ---
Subjective - Date & Time of Evaluation Date of Evaluation: 04/27/18 Time of Evaluation: 17:35 - Subjective Subjective: feels well. no chest pain or dyspnea. Objective - Vital Signs/Intake and Output Vital Signs (last 24 hours): Temp Pulse Resp BP Pulse Ox 97.0 F L 64 20 169/78 H 99 04/27/18 15:44 04/27/18 15:44 04/27/18 15:44 04/27/18 15:44 04/27/18 15:44 - Medications Medications: Current Medications Apixaban (Eliquis) 2.5 mg PO BID [facility] PRN Reason: Protocol Last Admin: 04/27/18 17:11 Dose: 2.5 mg Atorvastatin Calcium (Lipitor) 10 mg PO HS [facility] Last Admin: 04/26/18 21:23 Dose: 10 mg Carvedilol (Coreg) 3.125 mg PO Q12@0845,2044 [facility] Last Admin: 04/27/18 09:27 Dose: 3.125 mg Digoxin (Digoxin) 0.125 mg PO DAILY [facility] Last Admin: 04/27/18 09:27 Dose: 0.125 mg Escitalopram Oxalate (Lexapro) 5 mg PO QPM [facility] Last Admin: 04/27/18 17:10 Dose: 5 mg Escitalopram Oxalate (Lexapro) 10 mg PO DAILY [facility] Last Admin: 04/27/18 09:27 Dose: 10 mg Hydrocortisone (Anusol-Hc) 1 applic [place] BID [facility] Last Admin: 04/27/18 17:10 Dose: 1 applic Lactulose (Enulose) 10 gm PO DAILY PRN PRN Reason: Constipation Last Admin: 04/26/18 17:16 Dose: 10 gm Levothyroxine Sodium (Synthroid) 88 mcg PO DAILY@0630 [facility] Last Admin: 04/27/18 06:38 Dose: 88 mcg Midodrine (Proamatine) 2.5 mg PO TID [facility] Last Admin: 04/27/18 17:11 Dose: 2.5 mg Pantoprazole Sodium (Protonix Ec Tab) 20 mg PO DAILY [facility] Last Admin: 04/27/18 09:27 Dose: 20 mg Sitagliptin Phosphate (Januvia) 100 mg PO DAILY [facility] Last Admin: 04/27/18 09:27 Dose: 100 mg - Constitutional Appears: Non-toxic - Head Exam Head Exam: NORMAL INSPECTION - Eye Exam Eye Exam: Normal appearance - ENT Exam ENT Exam: Mucous Membranes Moist - Neck Exam Neck Exam: Full ROM - Respiratory Exam Respiratory Exam: NORMAL BREATHING PATTERN - Cardiovascular Exam Cardiovascular Exam: Irregular Rhythm - GI/Abdominal Exam GI & Abdominal Exam: Normal Bowel Sounds - Rectal Exam Rectal Exam: Deferred - Extremities Exam Extremities Exam: Pedal Edema - Back Exam Back Exam: NORMAL INSPECTION - Neurological Exam Neurological Exam: Alert - Psychiatric Exam Psychiatric exam: Normal Affect - Skin Skin Exam: Normal Color Assessment and Plan (1) Atrial fibrillation Assessment & Plan: rate control. will continue medical therapy. Status: Chronic
[2018-04-28] MEDS: Levothyroxine 88 MCG TAB PO SCH (06:38)
[2018-04-28] MEDS: Pantoprazole 20 mg EC Tab PO SCH (08:19)
[2018-04-28] MEDS: Digoxin 125 mcg (0.125 mg) Tab PO SCH (08:19)
[2018-04-28] MEDS: Hydrocortisone 2.5% (Rectal) CREAM PR SCH ×2 (08:21→20:14)
[2018-04-29] MEDS: Levothyroxine 88 MCG TAB PO SCH (06:06)
[2018-04-29] MEDS: Digoxin 125 mcg (0.125 mg) Tab PO SCH (08:40)
[2018-04-29] MEDS: Pantoprazole 20 mg EC Tab PO SCH (08:41)
[2018-04-29] MEDS: Hydrocortisone 2.5% (Rectal) CREAM PR SCH ×2 (08:42→21:11)
[2018-04-30] MEDS: Levothyroxine 88 MCG TAB PO SCH (05:35)
[2018-04-30] MEDS: Digoxin 125 mcg (0.125 mg) Tab PO SCH (08:18)
[2018-04-30] MEDS: Pantoprazole 20 mg EC Tab PO SCH (08:18)
[2018-04-30] MEDS: Hydrocortisone 2.5% (Rectal) CREAM PR SCH ×2 (08:19→21:09)
--- NOTE | 2018-04-30 09:16 | CP.PCM.PN ---
Subjective - Date & Time of Evaluation Date of Evaluation: 04/28/18 Time of Evaluation: 11:00 - Subjective Subjective: Patient still has significant orthostatic hypotension. Has no fever Currently on Midodrine 2.5 tid. Objective - Vital Signs/Intake and Output Vital Signs (last 24 hours): Temp Pulse Resp BP Pulse Ox 98.2 F 67 20 150/64 94 L 04/30/18 08:41 04/30/18 08:41 04/30/18 08:41 04/30/18 08:41 04/30/18 08:41 - Medications Medications: Current Medications Apixaban (Eliquis) 2.5 mg PO BID [facility] PRN Reason: Protocol Last Admin: 04/30/18 08:18 Dose: 2.5 mg Atorvastatin Calcium (Lipitor) 10 mg PO HS [facility] Last Admin: 04/29/18 21:11 Dose: 10 mg Carvedilol (Coreg) 3.125 mg PO Q12@0845,2045 [facility] Last Admin: 04/28/18 08:18 Dose: 3.125 mg Digoxin (Digoxin) 0.125 mg PO DAILY [facility] Last Admin: 04/30/18 08:18 Dose: 0.125 mg Escitalopram Oxalate (Lexapro) 5 mg PO QPM [facility] Last Admin: 04/29/18 18:01 Dose: 5 mg Escitalopram Oxalate (Lexapro) 10 mg PO DAILY [facility] Last Admin: 04/30/18 08:20 Dose: 10 mg Hydrocortisone (Anusol-Hc) 1 applic [place] Q12 [facility] Last Admin: 04/30/18 08:19 Dose: 1 applic Lactulose (Enulose) 10 gm PO DAILY PRN PRN Reason: Constipation Last Admin: 04/26/18 17:16 Dose: 10 gm Levothyroxine Sodium (Synthroid) 88 mcg PO DAILY@0630 [facility] Last Admin: 04/30/18 05:35 Dose: 88 mcg Midodrine (Proamatine) 5 mg PO TID [facility] Last Admin: 04/30/18 08:18 Dose: 5 mg Pantoprazole Sodium (Protonix Ec Tab) 20 mg PO DAILY [facility] Last Admin: 04/30/18 08:18 Dose: 20 mg Sitagliptin Phosphate (Januvia) 100 mg PO DAILY [facility] Last Admin: 04/30/18 08:18 Dose: 100 mg - Head Exam Head Exam: NORMAL INSPECTION - Eye Exam Eye Exam: Normal appearance - Respiratory Exam Respiratory Exam: Clear to Ausculation Bilateral - Cardiovascular Exam Cardiovascular Exam: REGULAR RHYTHM - GI/Abdominal Exam GI & Abdominal Exam: Normal Bowel Sounds - Neurological Exam Neurological Exam: CN II-XII Intact, Oriented x3 Neuro motor strength exam: Left Upper Extremity: 5 Assessment and Plan (1) Orthostatic hypotension Status: Acute (2) Atrial fibrillation Status: Chronic (3) Pre-syncope Status: Acute (4) Anxiety attack Status: Chronic (5) Diabetes mellitus 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
--- NOTE | 2018-04-30 09:18 | CP.PCM.PN ---
Subjective - Date & Time of Evaluation Date of Evaluation: 04/26/18 Time of Evaluation: 10:40 - Subjective Subjective: Patient remains stable However still with significant orthostasis. No chest pain or SOB. Objective - Vital Signs/Intake and Output Vital Signs (last 24 hours): Temp Pulse Resp BP Pulse Ox 98.2 F 67 20 150/64 94 L 04/30/18 08:41 04/30/18 08:41 04/30/18 08:41 04/30/18 08:41 04/30/18 08:41 - Medications Medications: Current Medications Apixaban (Eliquis) 2.5 mg PO BID [facility] PRN Reason: Protocol Last Admin: 04/30/18 08:18 Dose: 2.5 mg Atorvastatin Calcium (Lipitor) 10 mg PO HS [facility] Last Admin: 04/29/18 21:11 Dose: 10 mg Carvedilol (Coreg) 3.125 mg PO Q12@0845,2045 [facility] Last Admin: 04/28/18 08:18 Dose: 3.125 mg Digoxin (Digoxin) 0.125 mg PO DAILY [facility] Last Admin: 04/30/18 08:18 Dose: 0.125 mg Escitalopram Oxalate (Lexapro) 5 mg PO QPM [facility] Last Admin: 04/29/18 18:01 Dose: 5 mg Escitalopram Oxalate (Lexapro) 10 mg PO DAILY [facility] Last Admin: 04/30/18 08:20 Dose: 10 mg Hydrocortisone (Anusol-Hc) 1 applic [place] Q12 [facility] Last Admin: 04/30/18 08:19 Dose: 1 applic Lactulose (Enulose) 10 gm PO DAILY PRN PRN Reason: Constipation Last Admin: 04/26/18 17:16 Dose: 10 gm Levothyroxine Sodium (Synthroid) 88 mcg PO DAILY@0630 [facility] Last Admin: 04/30/18 05:35 Dose: 88 mcg Midodrine (Proamatine) 5 mg PO TID [facility] Last Admin: 04/30/18 08:18 Dose: 5 mg Pantoprazole Sodium (Protonix Ec Tab) 20 mg PO DAILY [facility] Last Admin: 04/30/18 08:18 Dose: 20 mg Sitagliptin Phosphate (Januvia) 100 mg PO DAILY [facility] Last Admin: 04/30/18 08:18 Dose: 100 mg - Head Exam Head Exam: NORMAL INSPECTION - Eye Exam Eye Exam: Normal appearance - ENT Exam ENT Exam: Mucous Membranes Moist - Respiratory Exam Respiratory Exam: Clear to Ausculation Bilateral - Cardiovascular Exam Cardiovascular Exam: REGULAR RHYTHM - GI/Abdominal Exam GI & Abdominal Exam: Normal Bowel Sounds - Neurological Exam Neurological Exam: Awake, Oriented x3 Assessment and Plan (1) Orthostatic hypotension Status: Acute (2) Atrial fibrillation Status: Chronic (3) Pre-syncope Status: Acute (4) Anxiety attack Status: Chronic (5) Diabetes mellitus type 2 in nonobese Status: Chronic (6) HTN (hypertension) Status: Chronic (7) Hypothyroidism Status: Chronic - Assessment and Plan (Free Text) Plan: Cont meds Cont tx Cont PT midorine 2.5 tid decrease carvedilol.
--- NOTE | 2018-04-30 09:20 | CP.PCM.PN ---
Subjective - Date & Time of Evaluation Date of Evaluation: 04/29/18 Time of Evaluation: 11:00 - Subjective Subjective: Patient remains well but still with significant orthostatic hypotension more than 40 mm HG difference from lying to standing. Has no chest pain or SOB Afebrile. Objective - Vital Signs/Intake and Output Vital Signs (last 24 hours): Temp Pulse Resp BP Pulse Ox 98.2 F 67 20 150/64 94 L 04/30/18 08:41 04/30/18 08:41 04/30/18 08:41 04/30/18 08:41 04/30/18 08:41 - Medications Medications: Current Medications Apixaban (Eliquis) 2.5 mg PO BID [facility] PRN Reason: Protocol Last Admin: 04/30/18 08:18 Dose: 2.5 mg Atorvastatin Calcium (Lipitor) 10 mg PO HS [facility] Last Admin: 04/29/18 21:11 Dose: 10 mg Carvedilol (Coreg) 3.125 mg PO Q12@45,2044 [facility] Last Admin: 04/28/18 08:18 Dose: 3.125 mg Digoxin (Digoxin) 0.125 mg PO DAILY [facility] Last Admin: 04/30/18 08:18 Dose: 0.125 mg Escitalopram Oxalate (Lexapro) 5 mg PO QPM [facility] Last Admin: 04/29/18 18:01 Dose: 5 mg Escitalopram Oxalate (Lexapro) 10 mg PO DAILY [facility] Last Admin: 04/30/18 08:20 Dose: 10 mg Hydrocortisone (Anusol-Hc) 1 applic [place] Q12 [facility] Last Admin: 04/30/18 08:19 Dose: 1 applic Lactulose (Enulose) 10 gm PO DAILY PRN PRN Reason: Constipation Last Admin: 04/26/18 17:16 Dose: 10 gm Levothyroxine Sodium (Synthroid) 88 mcg PO DAILY@0630 [facility] Last Admin: 04/30/18 05:35 Dose: 88 mcg Midodrine (Proamatine) 5 mg PO TID [facility] Last Admin: 04/30/18 08:18 Dose: 5 mg Pantoprazole Sodium (Protonix Ec Tab) 20 mg PO DAILY [facility] Last Admin: 04/30/18 08:18 Dose: 20 mg Sitagliptin Phosphate (Januvia) 100 mg PO DAILY [facility] Last Admin: 04/30/18 08:18 Dose: 100 mg - Head Exam Head Exam: NORMAL INSPECTION - Eye Exam Eye Exam: Normal appearance - ENT Exam ENT Exam: Mucous Membranes Moist - Respiratory Exam Respiratory Exam: Clear to Ausculation Bilateral - Cardiovascular Exam Cardiovascular Exam: REGULAR RHYTHM - GI/Abdominal Exam GI & Abdominal Exam: Normal Bowel Sounds - Neurological Exam Neurological Exam: Awake, Oriented x3 Assessment and Plan (1) Orthostatic hypotension Status: Acute (2) Atrial fibrillation Status: Chronic (3) Pre-syncope Status: Acute (4) Anxiety attack Status: Chronic (5) Diabetes mellitus type 2 in nonobese Status: Chronic (6) HTN (hypertension) Status: Chronic (7) Hypothyroidism Status: Chronic - Assessment and Plan (Free Text) Plan: Cont meds DC carvedilol Cont compression stockings Midodrine 5 mg tid Cont Phys therapy
--- NOTE | 2018-04-30 09:24 | CP.PCM.PN ---
Subjective - Date & Time of Evaluation Date of Evaluation: 04/30/18 Time of Evaluation: 09:22 - Subjective Subjective: Currently on Midodrine 5 mg tid Still with orthostasis but standing BP is better. No chest pain or SOB. Objective - Vital Signs/Intake and Output Vital Signs (last 24 hours): Temp Pulse Resp BP Pulse Ox 98.2 F 67 20 150/64 94 L 04/30/18 08:41 04/30/18 08:41 04/30/18 08:41 04/30/18 08:41 04/30/18 08:41 - Medications Medications: Current Medications Apixaban (Eliquis) 2.5 mg PO BID [facility] PRN Reason: Protocol Last Admin: 04/30/18 08:18 Dose: 2.5 mg Atorvastatin Calcium (Lipitor) 10 mg PO HS [facility] Last Admin: 04/29/18 21:11 Dose: 10 mg Carvedilol (Coreg) 3.125 mg PO Q12@0845,5 [facility] Last Admin: 04/28/18 08:18 Dose: 3.125 mg Digoxin (Digoxin) 0.125 mg PO DAILY [facility] Last Admin: 04/30/18 08:18 Dose: 0.125 mg Escitalopram Oxalate (Lexapro) 5 mg PO QPM [facility] Last Admin: 04/29/18 18:01 Dose: 5 mg Escitalopram Oxalate (Lexapro) 10 mg PO DAILY [facility] Last Admin: 04/30/18 08:20 Dose: 10 mg Hydrocortisone (Anusol-Hc) 1 applic [place] Q12 [facility] Last Admin: 04/30/18 08:19 Dose: 1 applic Lactulose (Enulose) 10 gm PO DAILY PRN PRN Reason: Constipation Last Admin: 04/26/18 17:16 Dose: 10 gm Levothyroxine Sodium (Synthroid) 88 mcg PO DAILY@0630 [facility] Last Admin: 04/30/18 05:35 Dose: 88 mcg Midodrine (Proamatine) 5 mg PO TID [facility] Last Admin: 04/30/18 08:18 Dose: 5 mg Pantoprazole Sodium (Protonix Ec Tab) 20 mg PO DAILY [facility] Last Admin: 04/30/18 08:18 Dose: 20 mg Sitagliptin Phosphate (Januvia) 100 mg PO DAILY [facility] Last Admin: 04/30/18 08:18 Dose: 100 mg - Head Exam Head Exam: NORMAL INSPECTION - Eye Exam Eye Exam: Normal appearance - ENT Exam ENT Exam: Mucous Membranes Moist - Respiratory Exam Respiratory Exam: Clear to Ausculation Bilateral - Cardiovascular Exam Cardiovascular Exam: REGULAR RHYTHM - GI/Abdominal Exam GI & Abdominal Exam: Normal Bowel Sounds - Neurological Exam Neurological Exam: Awake, Oriented x3 - Psychiatric Exam Psychiatric exam: Normal Mood Assessment and Plan (1) Orthostatic hypotension Status: Acute (2) Atrial fibrillation Status: Chronic (3) Pre-syncope Status: Acute (4) Anxiety attack Status: Chronic (5) Diabetes mellitus type 2 in nonobese Status: Chronic (6) HTN (hypertension) Status: Chronic (7) Hypothyroidism Status: Chronic - Assessment and Plan (Free Text) Plan: Cont meds Cont Midorine 5 mg tid Cont meds Cont Phys therapy
[2018-05-01] MEDS: Levothyroxine 88 MCG TAB PO SCH (05:37)
[2018-05-01] MEDS: Pantoprazole 20 mg EC Tab PO SCH (08:26)
[2018-05-01] MEDS: Hydrocortisone 2.5% (Rectal) CREAM PR SCH ×2 (08:27→21:27)
[2018-05-01] MEDS: Digoxin 125 mcg (0.125 mg) Tab PO SCH (08:36)
--- NOTE | 2018-05-01 10:23 | CP.PCM.PN ---
Subjective - Date & Time of Evaluation Date of Evaluation: 05/01/18 Time of Evaluation: 08:45 - Subjective Subjective: Patient seen and examined this morning at bedside w/ Dr. Peters. There are non acute events overnight, NAD. The patient reported no dizziness this morning and has no other complaints. The patient is participating in PT w/o issues. The patient denies headaches, chest pain, SOB, abdominal pain, nausea, vomiting , diarrhea, dysuria, or fever. Objective - Vital Signs/Intake and Output Vital Signs (last 24 hours): Temp Pulse Resp BP Pulse Ox 98.1 F 63 20 137/70 97 05/01/18 08:13 05/01/18 08:13 05/01/18 08:13 05/01/18 08:13 05/01/18 08:13 - Medications Medications: Current Medications Apixaban (Eliquis) 2.5 mg PO BID [facility] PRN Reason: Protocol Last Admin: 05/01/18 08:24 Dose: 2.5 mg Atorvastatin Calcium (Lipitor) 10 mg PO HS [facility] Last Admin: 04/30/18 21:08 Dose: 10 mg Carvedilol (Coreg) 3.125 mg PO Q12@45,2044 [facility] Last Admin: 04/28/18 08:18 Dose: 3.125 mg Digoxin (Digoxin) 0.125 mg PO DAILY [facility] Last Admin: 05/01/18 08:36 Dose: 0.125 mg Escitalopram Oxalate (Lexapro) 5 mg PO QPM [facility] Last Admin: 04/30/18 17:11 Dose: 5 mg Escitalopram Oxalate (Lexapro) 10 mg PO DAILY [facility] Last Admin: 05/01/18 08:25 Dose: 10 mg Hydrocortisone (Anusol-Hc) 1 applic [place] Q12 [facility] Last Admin: 05/01/18 08:27 Dose: 1 applic Lactulose (Enulose) 10 gm PO DAILY PRN PRN Reason: Constipation Last Admin: 04/26/18 17:16 Dose: 10 gm Levothyroxine Sodium (Synthroid) 88 mcg PO DAILY@0630 [facility] Last Admin: 05/01/18 05:37 Dose: 88 mcg Midodrine (Proamatine) 7.5 mg PO TID [facility] Pantoprazole Sodium (Protonix Ec Tab) 20 mg PO DAILY [facility] Last Admin: 05/01/18 08:26 Dose: 20 mg Sitagliptin Phosphate (Januvia) 100 mg PO DAILY [facility] Last Admin: 05/01/18 08:26 Dose: 100 mg - Constitutional Appears: Non-toxic, No Acute Distress - Head Exam Head Exam: ATRAUMATIC, NORMAL INSPECTION, NORMOCEPHALIC - Eye Exam Eye Exam: Normal appearance - ENT Exam ENT Exam: Mucous Membranes Moist - Neck Exam Neck Exam: Full ROM. absent: Tenderness - Respiratory Exam Respiratory Exam: Clear to Ausculation Bilateral. absent: Accessory Muscle Use , Decreased Breath Sounds, Rales, Rhonchi, Wheezes, Respiratory Distress - Cardiovascular Exam Cardiovascular Exam: REGULAR RHYTHM, RRR. absent: Tachycardia - GI/Abdominal Exam GI & Abdominal Exam: Soft, Normal Bowel Sounds. absent: Distended, Tenderness - Extremities Exam Extremities Exam: absent: Calf Tenderness - Neurological Exam Neurological Exam: Alert, Awake, Oriented x3 - Skin Skin Exam: Dry, Intact, Normal Color, Warm Assessment and Plan (1) Orthostatic hypotension Status: Acute (2) Pre-syncope Status: Acute (3) Atrial fibrillation Status: Chronic (4) Diabetes mellitus type 2 in nonobese Status: Chronic (5) HTN (hypertension) Status: Chronic (6) Hypothyroidism Status: Chronic - Assessment and Plan (Free Text) Plan: c/w present management afebrile, non-tachycardic, normotensive still has significant orthostatic hypotension cardiology recommendations appreciated increase midodrine from 5 mg to midodrine 7.5 mg PO TID c/w physical therapy prophylactic measures: DVT Eliquis 2.5 mg PO BID (for Afib) monitor for acute changes
[2018-05-02] MEDS: Levothyroxine 88 MCG TAB PO SCH (05:48)
[2018-05-02] MEDS: Digoxin 125 mcg (0.125 mg) Tab PO SCH (09:19)
[2018-05-02] MEDS: Pantoprazole 20 mg EC Tab PO SCH (09:21)
[2018-05-02] MEDS: Hydrocortisone 2.5% (Rectal) CREAM PR SCH ×2 (09:25→21:32)
[2018-05-02] MEDS: Insulin Lispro (humaLOG) 100 Units/ml Inj SC SCH ×3 (12:00→21:53)
[2018-05-02] MEDS ORDERED: Promethazine DM 6.25 mg-15 mg/5 ml Syrup PO PRN (12:47)
[2018-05-02] MEDS ORDERED: Glucagon Recombinant 1 mg Inj IM PRN (14:05)
[2018-05-02] MEDS ORDERED: Dextrose 50% SYRINGE Inj (50 ml) IV PRN (14:05)
--- NOTE | 2018-05-02 14:07 | CP.PCM.PN ---
Subjective - Date & Time of Evaluation Date of Evaluation: 05/02/18 Time of Evaluation: 08:30 - Subjective Subjective: Patient seen and examined this morning at bedside w/ Dr. Peters. There are non acute events overnight, NAD. The patient reported no dizziness this morning and has no other complaints. The patient is participating in PT w/o issues. Patient reports non-productive cough. The patient denies headaches, chest pain , SOB, abdominal pain, nausea, vomiting, diarrhea, dysuria, or fever. Objective - Vital Signs/Intake and Output Vital Signs (last 24 hours): Temp Pulse Resp BP Pulse Ox 97.7 F 65 20 152/65 H 98 05/02/18 09:34 05/02/18 09:34 05/02/18 09:34 05/02/18 09:34 05/02/18 09:34 - Medications Medications: Current Medications Acetaminophen (Tylenol 325mg Tab) 650 mg PO Q6 PRN PRN Reason: Pain, Mild (1-3) Last Admin: 05/01/18 12:06 Dose: 650 mg Apixaban (Eliquis) 2.5 mg PO BID [facility] PRN Reason: Protocol Last Admin: 05/02/18 09:19 Dose: 2.5 mg Atorvastatin Calcium (Lipitor) 10 mg PO HS [facility] Last Admin: 05/01/18 21:28 Dose: 10 mg Carvedilol (Coreg) 3.125 mg PO Q12 [facility] Last Admin: 05/02/18 09:18 Dose: 3.125 mg Digoxin (Digoxin) 0.125 mg PO DAILY [facility] Last Admin: 05/02/18 09:19 Dose: 0.125 mg Escitalopram Oxalate (Lexapro) 5 mg PO QPM [facility] Last Admin: 05/01/18 18:01 Dose: 5 mg Escitalopram Oxalate (Lexapro) 10 mg PO DAILY [facility] Last Admin: 05/02/18 09:20 Dose: 10 mg Hydrocortisone (Anusol-Hc) 1 applic [place] Q12 [facility] Last Admin: 05/02/18 09:25 Dose: 1 applic Insulin Human Lispro (Humalog) 0 units [place] ACHS [facility] PRN Reason: Protocol Last Admin: 05/02/18 12:00 Dose: 6 units Lactulose (Enulose) 10 gm PO DAILY PRN PRN Reason: Constipation Last Admin: 04/26/18 17:16 Dose: 10 gm Levothyroxine Sodium (Synthroid) 88 mcg PO DAILY@0630 [facility] Last Admin: 05/02/18 05:48 Dose: 88 mcg Midodrine (Proamatine) 7.5 mg PO TID [facility] Last Admin: 05/02/18 12:02 Dose: 7.5 mg Pantoprazole Sodium (Protonix Ec Tab) 20 mg PO DAILY [facility] Last Admin: 05/02/18 09:21 Dose: 20 mg Promethazine HCl/Dextromethorphan (Phenergan Dm Syrup) 5 ml PO Q8 PRN PRN Reason: Cough Sitagliptin Phosphate (Januvia) 100 mg PO DAILY [facility] Last Admin: 05/02/18 09:19 Dose: 100 mg - Constitutional Appears: Non-toxic, No Acute Distress - Head Exam Head Exam: ATRAUMATIC, NORMAL INSPECTION, NORMOCEPHALIC - Eye Exam Eye Exam: Normal appearance - ENT Exam ENT Exam: Mucous Membranes Moist - Neck Exam Neck Exam: Full ROM. absent: Tenderness - Respiratory Exam Respiratory Exam: Clear to Ausculation Bilateral. absent: Accessory Muscle Use , Decreased Breath Sounds, Rales, Rhonchi, Wheezes, Respiratory Distress - Cardiovascular Exam Cardiovascular Exam: REGULAR RHYTHM, RRR. absent: Tachycardia - GI/Abdominal Exam GI & Abdominal Exam: Soft, Normal Bowel Sounds. absent: Distended, Tenderness - Extremities Exam Extremities Exam: absent: Calf Tenderness - Neurological Exam Neurological Exam: Alert, Awake, Oriented x3 - Skin Skin Exam: Dry, Intact, Normal Color, Warm Assessment and Plan (1) Orthostatic hypotension Status: Acute (2) Pre-syncope Status: Acute (3) Atrial fibrillation Status: Chronic (4) Diabetes mellitus type 2 in nonobese Status: Chronic (5) HTN (hypertension) Status: Chronic (6) Hypothyroidism Status: Chronic - Assessment and Plan (Free Text) Plan: c/w present management afebrile, non-tachycardic, normotensive still has significant orthostatic hypotension cardiology recommendations appreciated c/w midodrine 7.5 mg PO TID insulin correction scale hypoglycemic protocol c/w physical therapy prophylactic measures: DVT Eliquis 2.5 mg PO BID (for Afib) monitor for acute changes
[2018-05-03] MEDS: Levothyroxine 88 MCG TAB PO SCH (06:37)
[2018-05-03] MEDS: Insulin Lispro (humaLOG) 100 Units/ml Inj SC SCH ×4 (06:40→22:00)
[2018-05-03] MEDS: Hydrocortisone 2.5% (Rectal) CREAM PR SCH ×2 (08:19→21:21)
[2018-05-03] MEDS: Digoxin 125 mcg (0.125 mg) Tab PO SCH (08:23)
[2018-05-03] MEDS: Pantoprazole 20 mg EC Tab PO SCH (08:24)
--- NOTE | 2018-05-03 14:48 | CP.PCM.PN ---
Subjective - Date & Time of Evaluation Date of Evaluation: 05/03/18 Time of Evaluation: 11:00 - Subjective Subjective: Patient seen and examined this morning at bedside w/ Dr. Peters. There are non acute events overnight, NAD. The patient reported no dizziness this morning and has no other complaints. The patient is participating in PT w/o issues. The patient denies headaches, chest pain, SOB, abdominal pain, nausea, vomiting , diarrhea, dysuria, or fever. Objective - Vital Signs/Intake and Output Vital Signs (last 24 hours): Temp Pulse Resp BP Pulse Ox 98.2 F 64 20 148/75 98 05/03/18 08:27 05/03/18 10:30 05/03/18 08:27 05/03/18 08:27 05/03/18 10:30 - Medications Medications: Current Medications Acetaminophen (Tylenol 325mg Tab) 650 mg PO Q6 PRN PRN Reason: Pain, Mild (1-3) Last Admin: 05/01/18 12:06 Dose: 650 mg Apixaban (Eliquis) 2.5 mg PO BID [facility] PRN Reason: Protocol Last Admin: 05/03/18 08:23 Dose: 2.5 mg Atorvastatin Calcium (Lipitor) 10 mg PO HS [facility] Last Admin: 05/02/18 21:31 Dose: 10 mg Carvedilol (Coreg) 3.125 mg PO Q12 [facility] Last Admin: 05/03/18 08:22 Dose: 3.125 mg Dextrose (Dextrose 50% Inj) 0 ml IV STAT PRN; Protocol PRN Reason: Hypoglycemia Protocol Dextrose (Glutose 15) 0 gm PO ONCE PRN; Protocol PRN Reason: Hypoglycemia Protocol Digoxin (Digoxin) 0.125 mg PO DAILY [facility] Last Admin: 05/03/18 08:23 Dose: 0.125 mg Escitalopram Oxalate (Lexapro) 5 mg PO QPM [facility] Last Admin: 05/02/18 17:19 Dose: 5 mg Escitalopram Oxalate (Lexapro) 10 mg PO DAILY [facility] Last Admin: 05/03/18 08:24 Dose: 10 mg Glucagon (Glucagen Diagnostic Kit) 0 mg IM STAT PRN; Protocol PRN Reason: Hypoglycemia Protocol Hydrocortisone (Anusol-Hc) 1 applic [place] Q12 [facility] Last Admin: 05/03/18 08:19 Dose: 1 applic Insulin Human Lispro (Humalog) 0 units [place] ACHS [facility] PRN Reason: Protocol Last Admin: 05/03/18 12:45 Dose: 4 units Lactulose (Enulose) 10 gm PO DAILY PRN PRN Reason: Constipation Last Admin: 04/26/18 17:16 Dose: 10 gm Levothyroxine Sodium (Synthroid) 88 mcg PO DAILY@0630 [facility] Last Admin: 05/03/18 06:37 Dose: 88 mcg Midodrine (Proamatine) 7.5 mg PO TID [facility] Last Admin: 05/03/18 12:44 Dose: 7.5 mg Pantoprazole Sodium (Protonix Ec Tab) 20 mg PO DAILY [facility] Last Admin: 05/03/18 08:24 Dose: 20 mg Promethazine HCl/Dextromethorphan (Phenergan Dm Syrup) 5 ml PO Q8 PRN PRN Reason: Cough Last Admin: 05/03/18 08:31 Dose: 5 ml Sitagliptin Phosphate (Januvia) 100 mg PO DAILY [facility] Last Admin: 05/03/18 08:23 Dose: 100 mg - Constitutional Appears: Non-toxic, No Acute Distress - Head Exam Head Exam: ATRAUMATIC, NORMAL INSPECTION, NORMOCEPHALIC - Eye Exam Eye Exam: Normal appearance - ENT Exam ENT Exam: Mucous Membranes Moist - Neck Exam Neck Exam: Full ROM. absent: Tenderness - Respiratory Exam Respiratory Exam: Clear to Ausculation Bilateral. absent: Accessory Muscle Use , Decreased Breath Sounds, Rales, Rhonchi, Wheezes, Respiratory Distress - Cardiovascular Exam Cardiovascular Exam: REGULAR RHYTHM. absent: Tachycardia - GI/Abdominal Exam GI & Abdominal Exam: Soft, Normal Bowel Sounds. absent: Distended, Tenderness - Extremities Exam Extremities Exam: Normal Inspection. absent: Calf Tenderness - Neurological Exam Neurological Exam: Alert, Awake, Normal Gait (w/ walker assist device), Oriented x3 - Skin Skin Exam: Dry, Intact, Normal Color, Warm Assessment and Plan (1) Orthostatic hypotension Status: Acute (2) Pre-syncope Status: Acute (3) Atrial fibrillation Status: Chronic (4) Diabetes mellitus type 2 in nonobese Status: Chronic (5) HTN (hypertension) Status: Chronic (6) Hypothyroidism Status: Chronic - Assessment and Plan (Free Text) Plan: c/w present management afebrile, non-tachycardic, normotensive still has significant orthostatic hypotension cardiology recommendations appreciated c/w midodrine 7.5 mg PO TID insulin correction scale hypoglycemic protocol c/w physical therapy prophylactic measures: DVT Eliquis 2.5 mg PO BID (for Afib) monitor for acute changes
[2018-05-04] MEDS: Levothyroxine 88 MCG TAB PO SCH (05:50)
[2018-05-04] MEDS: Insulin Lispro (humaLOG) 100 Units/ml Inj SC SCH ×2 (06:48→12:49)
[2018-05-04] MEDS: Digoxin 125 mcg (0.125 mg) Tab PO SCH (08:40)
[2018-05-04] MEDS: Hydrocortisone 2.5% (Rectal) CREAM PR SCH (08:40)
[2018-05-04] MEDS: Pantoprazole 20 mg EC Tab PO SCH (08:41)
[2018-05-04 08:42] VITALS: BP 141/93; PULSE 86
[2018-05-04 08:47] VITALS: TEMP 98.2; O2SAT 95
--- NOTE | 2018-05-04 12:22 | CP.PCM.DIS ---
Provider - Provider Date of Admission: 04/23/18 12:56 Attending physician: Ishan Peters MD Time Spent in preparation of Discharge (in minutes): 15 Diagnosis - Discharge Diagnosis (1) Orthostatic hypotension Status: Acute (2) Pre-syncope Status: Acute (3) Atrial fibrillation Status: Chronic (4) Diabetes mellitus type 2 in nonobese Status: Chronic (5) HTN (hypertension) Status: Chronic (6) Hypothyroidism Status: Chronic Hospital Course - Lab Results Lab Results: Most Recent Lab Values POC Glucose (mg/dL) 265 mg/dL (65-110) H 05/04/18 11:00 - Hospital Course Hospital Course: 82 y/o woman w/ pmh of CAD, atrial fibrillation, DM2, HTN, anxiety, orthostatic hypotension admitted for further physical therapy. The patient tolerated and participated in physical therapy w/o issue. The patient had orthostatic BP measured twice a day. Patient improved and denies any further dizziness. Patient counseled and taught to not move abruptly when changing position and posture. The patient was seen by cardiology. The patient has no complaints. The patient denies headaches, chest pain, SOB, dizziness, abdominal pain, nausea , vomiting, diarrhea, dysuria, or fever. The patient has been seen, examined, and deemed medically fit for discharge home. The patient is given scripts for medications and updated list was given. The patient is to follow up w/ PMD in 1 week. Discharge Exam - Head Exam Head Exam: ATRAUMATIC, NORMAL INSPECTION, NORMOCEPHALIC - Eye Exam Eye Exam: Normal appearance - ENT Exam ENT Exam: Mucous Membranes Moist - Neck Exam Neck exam: Full Rom - Respiratory Exam Respiratory Exam: Clear to PA & Lateral. absent: Accessory Muscle Use, Decreased Breath Sounds, Rales, Rhonchi, Wheezes, Respiratory Distress - Cardiovascular Exam Cardiovascular Exam: REGULAR RHYTHM. absent: Tachycardia - GI/Abdominal Exam GI & Abdominal Exam: Normal Bowel Sounds, Soft. absent: Distended, Tenderness - Extremities Exam Extremities exam: normal inspection - Neurological Exam Neurological exam: Alert, CN II-XII Intact, Normal Gait (w/ walker assist device ), Oriented x3 - Skin Skin Exam: Dry, Intact, Normal Color, Warm Discharge Plan - Discharge Medications Prescriptions: Midodrine [Proamatine] 7.5 mg PO TID #30 tab - Follow Up Plan Condition: GOOD Disposition: HOME/ ROUTINE
== END 2018-05-04 13:46 | disposition home health service (06) | DRG 312 ==
LOC: H.TCU 12:56
PROVIDERS: ADMIT Family Medicine; ATTEND Family Medicine
PROC: F07M6FZ Therapeutic Exercise Treatment of Musculoskeletal System - Whole Body using Assistive, Adaptive, Supportive or Protective Equipment (ICD-10-PCS; principal; 2018-04-23)
PROC: F08Z4FZ Home Management Treatment using Assistive, Adaptive, Supportive or Protective Equipment (ICD-10-PCS; 2018-04-23)
DX: I95.1 Orthostatic hypotension (principal); Z86.711 Personal history of pulmonary embolism; Z90.49 Acquired absence of other specified parts of digestive tract; Z91.81 History of falling; Z95.0 Presence of cardiac pacemaker; Z95.1 Presence of aortocoronary bypass graft; F32.9 Major depressive disorder, single episode, unspecified; F41.9 Anxiety disorder, unspecified; F45.9 Somatoform disorder, unspecified; K29.70 Gastritis, unspecified, without bleeding; M19.90 Unspecified osteoarthritis, unspecified site; E03.9 Hypothyroidism, unspecified; E11.9 Type 2 diabetes mellitus without complications; E78.00 Pure hypercholesterolemia, unspecified; F41.1 Generalized anxiety disorder; I11.0 Hypertensive heart disease with heart failure; I25.10 Atherosclerotic heart disease of native coronary artery without angina pectoris; I48.91 Unspecified atrial fibrillation; I50.9 Heart failure, unspecified

== ENCOUNTER 2018-05-06 15:02 | Emergency (ER) | payer MEDICARE, OTHER ==
[2018-05-06 15:03] VITALS: PULSE 86; BMI 28.3
[2018-05-06] MEDS ORDERED: Sodium Chloride 0.9% 1,000 ML IV STA (15:32)
--- NOTE | 2018-05-06 15:38 | ED PDOC ---
HPI: Chest Pain Time Seen by Provider: 05/06/18 15:27 Chief Complaint (Nursing): Palpitations History Per: Patient Onset/Duration Of Symptoms: Days (1) Current Symptoms Are (Timing): Intermittent Episodes Severity: Moderate Associated Symptoms: Syncope Additional Complaint(s): Palpitations assoc with nausea vomiting and dizziness. Denies chest pain. Recently discharged post afib. Past Medical History Vital Signs: Last Vital Signs Temp 96.8 F L 05/06/18 15:06 Pulse 65 05/06/18 15:25 Resp 21 05/06/18 15:25 BP 161/71 H 05/06/18 15:25 Pulse Ox 95 05/06/18 15:38 - Medical History PMH: Anxiety, Arthritis, CAD, Depression, Diabetes (type II, takes Metformin), Diverticulitis, Gastritis, HTN, Hypercholesterolemia, Hypothyroidism, Pulmonary Embolism Denies: Alzheimer's Disease, Atrial Fibrillation, Cardia Arrhythmia, CHF, Emphysema, HIV, Chronic Kidney Disease - Surgical History Surgical History: CABG, Cholecystectomy, Hernia Repair, Pacemaker, Tonsillectomy - Family History Family History: States: Unknown Family Hx - Home Medications Home Medications: Ambulatory Orders Medication Instructions Recorded Carvedilol [Coreg] 3.125 mg PO Q12H 07/11/17 Levothyroxine [Synthroid] 88 mcg PO DAILY 07/11/17 Digoxin 0.125 mg PO DAILY 04/16/18 Apixaban [Eliquis] 2.5 mg PO BID tab 04/20/18 Atorvastatin [Lipitor] 10 mg PO DAILY tab 04/20/18 Escitalopram [Lexapro] 5 mg PO QPM tab 04/20/18 Escitalopram [Lexapro] 10 mg PO DAILY tab 04/20/18 Lactulose [Enulose] 10 gm PO DAILY PRN udc 04/20/18 Pantoprazole [Protonix EC Tab] 20 mg PO DAILY ect 04/20/18 SITagliptin [Januvia] 100 mg PO DAILY tab 04/20/18 Midodrine [Proamatine] 7.5 mg PO TID #30 tab 05/04/18 - Allergies Allergies/Adverse Reactions: Allergies Allergy/AdvReac Type Severity Reaction Status Date / Time No Known Allergies Allergy Verified 04/23/18 12:56 Review of Systems Cardiovascular: Positive for: Palpitations Gastrointestinal: Positive for: Nausea, Vomiting Neurological: Positive for: Dizziness Physical Exam - Reviewed Nursing Documentation Reviewed: Yes Vital Signs Reviewed: Yes - Physical Exam Appears: Positive for: Non-toxic, No Acute Distress Head Exam: Positive for: ATRAUMATIC, NORMAL INSPECTION, NORMOCEPHALIC Skin: Positive for: Normal Color, Warm, DRY Eye Exam: Positive for: EOMI, Normal appearance, PERRL ENT: Positive for: Normal ENT Inspection Neck: Positive for: Normal, Painless ROM Cardiovascular/Chest: Positive for: Regular Rate, Rhythm Respiratory: Positive for: CNT, Normal Breath Sounds Gastrointestinal/Abdominal: Positive for: Normal Exam, Soft Back: Positive for: Normal Inspection Extremity: Positive for: Normal ROM Neurologic/Psych: Positive for: Alert, Oriented - Laboratory Results Result Diagrams: 05/06/18 16:14 05/06/18 16:14 - ECG O2 Sat by Pulse Oximetry: 95 Disposition - Clinical Impression Clinical Impression: Palpitations, Anxiety - Patient ED Disposition Is Patient to be Admitted: No Discussed With Dr.: Ishan Peters Doctor Will See Patient In The: Office Counseled Patient/Family Regarding: Studies Performed, Diagnosis, Need For Followup, Rx Given - Disposition Referrals: Ishan Peters MD [Staff Provider] - Disposition: Routine/Home Disposition Time: 17:47 Condition: FAIR Instructions: Palpitations, Anxiety, Adult (DC) Forms: [employer] (Gabonese)
[2018-05-06 16:24] LABS: BASO % 0.6 % (0.0-2.0); EOS # 0.2 K/uL (0.0-0.7); EOS % 3.2 % (0.0-4.0); HEMOGLOBIN 10.5 g/dL (12.0-16.0); LYMPH # 1.4 K/uL (1.0-4.3); LYMPH % 22.9 % (20.0-40.0); MEAN CORPUSCULAR HEMOGLOBIN 30.1 pg (27.0-31.0); MEAN CORPUSCULAR HGB CONC 33.8 g/dL (33.0-37.0); MEAN PLATELET VOLUME 7.8 fl (7.2-11.7); MONO # 0.5 K/uL (0.0-0.8); MONO % 8.8 % (0.0-10.0); NEUT % 64.5 % (50.0-75.0); NRBC % 0.1 % (0.0-0.0); RBC 3.5 Mil/uL (3.80-5.20); WHITE BLOOD COUNT 6.2 K/uL (4.8-10.8)
[2018-05-06 16:57] LABS: ALB/GLOB RATIO 1.1 (1.0-2.1); ALBUMIN 3.5 g/dL (3.5-5.0); ALT/SGPT 34 U/L (9-52); AST/SGOT 46 U/L (14-36); BLOOD UREA NITROGEN 12 mg/dl (7-17); CALCIUM 9.1 mg/dL (8.4-10.2); GFR AFRICAN-AMERICAN > 60; GFR NON-AFRICAN AMERICAN 53
[2018-05-06 17:58] VITALS: BP 148/66; RESP 18; O2SAT 97
[2018-05-06 18:13] VITALS: PULSE 64; TEMP 98.2
--- NOTE | 2018-05-07 09:41 | CARD ---
APPROVED REPORT EKG Measurement Heart [id number] <Conclusion> Atrial-paced rhythm T wave abnormality, consider anterior ischemia Abnormal ECG
== END 2018-05-06 18:13 | disposition home or self-care (01) ==
LOC: H.ER 15:02
DX: R00.2 Palpitations (principal); F41.9 Anxiety disorder, unspecified; E11.9 Type 2 diabetes mellitus without complications; I10 Essential (primary) hypertension; E78.00 Pure hypercholesterolemia, unspecified; Z79.01 Long term (current) use of anticoagulants; I25.10 Atherosclerotic heart disease of native coronary artery without angina pectoris; Z95.1 Presence of aortocoronary bypass graft; Z95.0 Presence of cardiac pacemaker; Z86.711 Personal history of pulmonary embolism; E03.9 Hypothyroidism, unspecified
CPT/HCPCS: 80053; 80162; 84484; 85025; 93005; 96374; 99283; J2405; J7030

== ENCOUNTER 2018-05-17 16:53 | Inpatient (IN) | payer MEDICARE, OTHER ==
[2018-05-17 16:53] VITALS: BMI 28.3
[2018-05-17] MEDS ORDERED: Sodium Chloride 0.9% 1,000 ML IV STA ×2 (17:43→20:14)
--- NOTE | 2018-05-17 18:05 | RAD ---
HISTORY: SOB COMPARISON: Portable chest 04/16/2018. FINDINGS: LUNGS: No active pulmonary disease. PLEURA: No significant pleural effusion identified, no pneumothorax apparent. CARDIOVASCULAR: Prominent cardiac silhouette with post CABG changes reiterated. Permanent cardiac pacemaker reiterated. OSSEOUS STRUCTURES: No significant abnormalities. VISUALIZED UPPER ABDOMEN: Elevated right hemidiaphragm identified in the interval. Nonspecific finding. OTHER FINDINGS: None. IMPRESSION: No interval acute cardiopulmonary disease appreciated. Mildly elevated right hemidiaphragm of uncertain origin. Pacemaker and post CABG changes reiterated. No pulmonary vascular congestion.
[2018-05-17 18:18] LABS: BASO # 0.1 K/uL (0.0-0.2); BASO % 0.6 % (0.0-2.0); EOS # 0.3 K/uL (0.0-0.7); EOS % 3.8 % (0.0-4.0); HEMOGLOBIN 11.1 g/dL (12.0-16.0); LYMPH % 21.6 % (20.0-40.0); MEAN CORPUSCULAR HEMOGLOBIN 29.7 pg (27.0-31.0); MEAN CORPUSCULAR HGB CONC 33.3 g/dL (33.0-37.0); MONO # 0.5 K/uL (0.0-0.8); MONO % 5.6 % (0.0-10.0); NEUT # 6.3 K/uL (1.8-7.0); NEUT % 68.4 % (50.0-75.0); RBC 3.73 Mil/uL (3.80-5.20); RED CELL DISTRIBUTION WIDTH 14.9 % (11.5-14.5); WHITE BLOOD COUNT 9.2 K/uL (4.8-10.8)
[2018-05-17] MEDS ORDERED: Iohexol 300 100 ML IJ ONE (18:29)
[2018-05-17] MEDS ORDERED: Sodium Chloride 0.9% 50 ML IV ONE (18:29)
[2018-05-17 18:32] LABS: VENOUS BLOOD GAS BASE EXCESS -8.4 mmol/L (0.0-2.0); VENOUS BLOOD GAS PCO2 59 mmHg (40-60); VENOUS BLOOD GAS PO2 52 mm/Hg (30-55); VENOUS BLOOD PH 7.16 (7.32-7.43)
[2018-05-17 18:34] LABS: INR 1.2 (0.9-1.2); PARTIAL THROMBOPLASTIN TIME 32.4 Seconds (25.6-37.1); PROTHROMBIN TIME 13.6 Seconds (9.8-13.1)
[2018-05-17 18:40] LABS: B-TYPE NATRIURETIC PEPTIDE 2120 pg/ml (0-900)
[2018-05-17 18:45] LABS: ALB/GLOB RATIO 1.1 (1.0-2.1); ALBUMIN 3.7 g/dL (3.5-5.0); ALT/SGPT 44 U/L (9-52); AST/SGOT 60 U/L (14-36); BLOOD UREA NITROGEN 12 mg/dl (7-17); CALCIUM 9.2 mg/dL (8.4-10.2); GFR AFRICAN-AMERICAN > 60; GFR NON-AFRICAN AMERICAN 53; LIPASE 77 U/L (23-300)
[2018-05-17 19:19] LABS: VENOUS BLOOD GAS BASE EXCESS 0.5 mmol/L (0.0-2.0); VENOUS BLOOD GAS PCO2 41 mmHg (40-60); VENOUS BLOOD GAS PO2 27 mm/Hg (30-55)
--- NOTE | 2018-05-17 19:59 | CT ---
EXAM: CT Abdomen and Pelvis With Intravenous Contrast EXAM DATE/TIME: 05/17/2018 5:43 PM CLINICAL HISTORY: 82 years old, female; Pain; Abdominal pain; Generalized; Additional info: Abd pain generalized weakness TECHNIQUE: Axial computed tomography images of the abdomen and pelvis with intravenous contrast. All CT scans at this facility use at least one of these dose optimization techniques: automated exposure control; mA and/or kV adjustment per patient size (includes targeted exams where dose is matched to clinical indication); or iterative reconstruction. Coronal and sagittal reformatted images were created and reviewed. COMPARISON: CT - ABD PELVIS IV CONTRAST ONLY 2017-07-11 14:15. FINDINGS: Limitations: Motion artifact degrades image quality. Lower thorax: The heart is enlarged. There are coronary artery calcifications and/or stents. There is streak artifact from pacer leads. There is diffuse increase in interstitial markings at the lung bases. There are small there is dependent atelectasis. ABDOMEN: Liver: There is fatty infiltration of the liver. Gallbladder and bile ducts: Gallbladder is absent. Common duct is mildly dilated, 12 mm in diameter. There is pneumobilia. Pancreas: Pancreas is atrophic. Spleen: unremarkable Adrenals: unremarkable Kidneys and ureters: Right kidney is unremarkable. There is left renal scarring with dystrophic calcification. There is no pelvocaliectasis or ureterectasis. Stomach and bowel: Stomach is incompletely distended. Rotation is normal. Small bowel is mildly distended. There is fluid and air throughout the small bowel. There is fecalization of the distal ileal loops. Terminal ileum is unremarkable. Appendix is not visualized.There is no pericecal inflammation.Colon is incompletely distended which limits evaluation. There is diverticulosis PELVIS: Appendix: See stomach and bowel Bladder: unremarkable Reproductive: Uterus is atrophic. There are no adnexal masses. ABDOMEN and PELVIS: Intraperitoneal space: There is no free air. There is no free fluid. Bones/joints: There are postsurgical changes of median sternotomy. Bony structures are osteopenic with degenerative change. Soft tissues: There is a small fat containing umbilical hernia. There is upper rectus diastases with fat containing ventral hernia. There are multiple clips in the abdominal wall at the site of the hernia. There is a fat containing left inguinal hernia. Vasculature: There are vascular calcifications. Lymph nodes: There are multiple small nodes in the upper mesentery. IMPRESSION: Cholecystectomy with dilated ducts and pneumobilia, similar finding seen on the prior study; fatty liver, no acute solid visceral abnormality; mild ileus, no obstruction; diverticulosis without CT findings of diverticulitis Additional nonemergent findings as described above.
[2018-05-17 20:06] LABS: SQUAMOUS EPITHIAL 4 /hpf (0-5); URINE BACTERIA RARE (<OCC); URINE BILIRUBIN NEGATIVE (NEGATIVE); URINE BLOOD NEGATIVE (NEGATIVE); URINE CLARITY SLIGHTY-CLOUDY (Clear); URINE COLOR YELLOW (YELLOW); URINE GLUCOSE (UA) 150 mg/dL (Normal); URINE HYALINE CAST 0-2 /hpf (0-2); URINE LEUKOCYTE ESTERASE MOD Leu/uL (Negative); URINE PROTEIN NEGATIVE (NEGATIVE)
--- NOTE | 2018-05-17 20:14 | ED PDOC ---
HPI: General Adult Time Seen by Provider: 05/17/18 17:09 Chief Complaint (Nursing): Chest Pain Chief Complaint (Provider): chest pain, abdominal pain, weakness History Per: Patient, Family, [employer] History/Exam Limitations: no limitations Current Symptoms Are (Timing): Still Present Severity: Severe Recently: Treated By A Physician Additional Complaint(s): 82yo female arrives with daughter c/o generalized weakness, inability to get out of bed today, chest and abdominal discomfort poorly localized. Denies fever , cough, headache, skin changes or urinary symptoms. States compliance to medications including NOAC. Has noticed blood in stool intermittently but no melena and blood was attributed to hemorrhoids in the past. Daughter does report prior history diverticulitis. Past Medical History Reviewed: Historical Data, Nursing Documentation, Vital Signs Vital Signs: Last Vital Signs Temp 98.0 F 05/18/18 16:12 Pulse 59 L 05/18/18 16:12 Resp 16 05/18/18 16:12 BP 163/77 H 05/18/18 16:12 Pulse Ox 99 05/18/18 17:11 - Medical History PMH: Anxiety, Arthritis, CAD, Depression, Diabetes (type II, takes Metformin), Diverticulitis, Gastritis, HTN, Hypercholesterolemia, Hypothyroidism, Pulmonary Embolism Denies: Alzheimer's Disease, Atrial Fibrillation, Cardia Arrhythmia, CHF, Emphysema, HIV, Chronic Kidney Disease - Surgical History Surgical History: CABG, Cholecystectomy, Hernia Repair, Pacemaker, Tonsillectomy - Family History Family History: States: Unknown Family Hx - Living Arrangements Living Arrangements: With Family - Social History Current smoker - smoking cessation education provided: No - Home Medications Home Medications: Ambulatory Orders Medication Instructions Recorded Carvedilol [Coreg] 3.125 mg PO Q12H 07/11/17 Levothyroxine [Synthroid] 88 mcg PO DAILY 07/11/17 Digoxin 0.125 mg PO DAILY 04/16/18 Apixaban [Eliquis] 2.5 mg PO BID tab 04/20/18 Atorvastatin [Lipitor] 10 mg PO DAILY tab 04/20/18 Escitalopram [Lexapro] 5 mg PO QPM tab 04/20/18 Escitalopram [Lexapro] 10 mg PO DAILY tab 04/20/18 Lactulose [Enulose] 10 gm PO DAILY PRN udc 04/20/18 Pantoprazole [Protonix EC Tab] 20 mg PO DAILY ect 04/20/18 SITagliptin [Januvia] 100 mg PO DAILY tab 04/20/18 Midodrine [Proamatine] 7.5 mg PO TID #30 tab 05/04/18 Ondansetron [Zofran] 4 mg PO Q8H #10 tab 05/06/18 - Allergies Allergies/Adverse Reactions: Allergies Allergy/AdvReac Type Severity Reaction Status Date / Time No Known Allergies Allergy Verified 05/17/18 16:57 Review of Systems Constitutional: Positive for: Weakness, Malaise. Negative for: Fever Eyes: Negative for: Vision Change ENT: Negative for: Nose Discharge, Throat Pain Cardiovascular: Positive for: Chest Pain, Palpitations, Orthopnea, Paroxysmal Noc. Dyspnea, Light Headedness Respiratory: Positive for: Shortness of Breath, SOB with Exertion Gastrointestinal: Positive for: Nausea, Abdominal Pain. Negative for: Vomiting , Constipation, Melena Genitourinary Female: Negative for: Dysuria, Hematuria Musculoskeletal: Negative for: Neck Pain, Arm Pain, Back Pain, Leg Pain Skin: Negative for: Rash, Lesions, Jaundice Neurological: Positive for: Dizziness. Negative for: Numbness, Headache Psych: Positive for: Anxiety. Negative for: Psychosis, Suicidal ideation Physical Exam - Reviewed Nursing Documentation Reviewed: Yes Vital Signs Reviewed: Yes - Physical Exam Appears: Positive for: Non-toxic Head Exam: Positive for: ATRAUMATIC, NORMAL INSPECTION, NORMOCEPHALIC Skin: Positive for: Normal Color, Warm, DRY Eye Exam: Positive for: EOMI, Normal appearance, PERRL ENT: Positive for: Normal ENT Inspection Neck: Positive for: Normal, Painless ROM Cardiovascular/Chest: Positive for: Regular Rate, Rhythm Respiratory: Positive for: CNT, Normal Breath Sounds Gastrointestinal/Abdominal: Positive for: Soft, Tenderness (mild LLQ and epigastric tenderness) Back: Positive for: Normal Inspection Extremity: Positive for: Normal ROM Neurologic/Psych: Positive for: Alert, Oriented - Laboratory Results Result Diagrams: 05/17/18 18:00 05/18/18 11:54 - ECG O2 Sat by Pulse Oximetry: 99 Medical Decision Making Medical Decision Making: workup for chest pain and generalized abdominal pain initiated labs reviewed lactate elevated 4.1 but does not meet SIRS criteria to suggest sepsis. IVF initiated Lower thorax: The heart is enlarged. There are coronary artery calcifications and/or stents. There is streak artifact from pacer leads. There is diffuse increase in interstitial markings at the lung bases. There are small there is dependent atelectasis. ABDOMEN: Liver: There is fatty infiltration of the liver. Gallbladder and bile ducts: Gallbladder is absent. Common duct is mildly dilated , 12 mm in diameter. There is pneumobilia. Pancreas: Pancreas is atrophic. Spleen: unremarkable Adrenals: unremarkable Kidneys and ureters: Right kidney is unremarkable. There is left renal scarring with dystrophic calcification. There is no pelvocaliectasis or ureterectasis. Stomach and bowel: Stomach is incompletely distended. Rotation is normal. Small bowel is mildly distended. There is fluid and air throughout the small bowel. There is fecalization of the distal ileal loops. Terminal ileum is unremarkable. Appendix is not visualized.There is no pericecal inflammation.Colon is incompletely distended which limits evaluation. There is diverticulosis PELVIS: Appendix: See stomach and bowel Bladder: unremarkable Reproductive: Uterus is atrophic. There are no adnexal masses. ABDOMEN and PELVIS: Intraperitoneal space: There is no free air. There is no free fluid. Bones/joints: There are postsurgical changes of median sternotomy. Bony structures are osteopenic with degenerative change. Soft tissues: There is a small fat containing umbilical hernia. There is upper rectus diastases with fat containing ventral hernia. There are multiple clips in the abdominal wall at the site of the hernia. There is a fat containing left inguinal hernia. Vasculature: There are vascular calcifications. Lymph nodes: There are multiple small nodes in the upper mesentery. IMPRESSION: Cholecystectomy with dilated ducts and pneumobilia, similar finding seen on the prior study; fatty liver, no acute solid visceral abnormality; mild ileus, no obstruction; diverticulosis without CT findings of diverticulitis Additional nonemergent findings as described above. ------- trop neg Repeat lactate remained >4, but no signs to suggest sepsis given no SIRS. D/w Dr Peters, has had difficulty w orthostasis in the past, requiring midrodrine. Admit tele given lactic acidosis. Cipro started for small UTI although unlikely source of hypotension currently. pt requested low dose anxiolytic after daughter left for evening. low dose ativan Rx. Disposition - Clinical Impression Clinical Impression: Lactic acidosis, Acute chest pain, Anxiety - Patient ED Disposition Is Patient to be Admitted: Yes Counseled Patient/Family Regarding: Studies Performed, Diagnosis - Disposition Disposition Time: 20:30 Condition: STABLE - Pt Status Changed To: Hospital Disposition Of: Inpatient - Admit Certification Admit to Inpatient:: After my assessment, the patient will require hospitalization for at least two midnights. This is because of the severity of symptoms shown, intensity of services needed, and/or the medical risk in this patient being treated as an outpatient. - POA Present On Arrival: None
[2018-05-17] MEDS ORDERED: cefTRIAXone (Rocephin) 1 gm Inj ONE (20:50)
[2018-05-17] MEDS ORDERED: Pantoprazole 40 MG in Sodium Chloride 0.9% 100 ML IVPB SCH (21:00)
[2018-05-18] MEDS ORDERED: Lactulose 10 gm/15 ml Syrup PO PRN (06:43)
[2018-05-18] MEDS ORDERED: Dextrose 5%/Lactated Ringer's 1,000 ML IV SCH (07:00)
--- NOTE | 2018-05-18 07:43 | CP.PCM.HP ---
History of Present Illness - History of Present Illness History of Present Illness: 82 yr old F presented to ED with complaint of chest pain and generalized abdominal pain which started yesterday. Cannot describe chest pain, its is diffuse and intermittent. PMHx includes CAD s/p CABG, A-fib, NIDDM type 2, anxiety and orthostatic hypotension, hx rectal bleed. Patient reports she last at dinner. Denies nausea, vomiting, fevers, chills, one sided weakness or numbness, left arm pain, syncope, dysuria or hematuria. PMD: Dr. Peters [employer] Teacher: Dr. Woody PMHx: CAD s/p CABG, A-fib, NIDDM type 2, anxiety and orthostatic hypotension, hx rectal bleed SurgHx: CABG, cholecystectomy, hernia repair, pacemaker, tonsillectomy FMHx: noncontributory SocHx: denies tobacco/Etoh or drugs Medications: see medication reconciliation Allergies: NKDA ED course: vitals stable -EKG: no change from prior EKg's: Atrial paced rhythm at 61 bpm, ST-T wave abnormality, consider anterior ischemia -CXR: No interval cardiopulmonary disease appreciated -Abdominal/Pelvis CT: similar findings from last study including cholecystectomy with dilated ducts and pneumobilia, fatty liver, mild ileus, no obstruction, diverticulosis without diverticulitis -blood culture, urine culture -VBG lactate 4.1, rest of values within normal limits -troponin 0.018, proBNP 2120 -CBC and CMP wnl -ED tx: NS IV fluid at 75 mls/hr, Lorazepam 0.5mg PO once, Pantoprazole 40mg IVP once, Rocephin 1gm IV once Present on Admission - Present on Admission Any Indicators Present on Admission: No History of DVT/PE: No History of Uncontrolled Diabetes: No Urinary Catheter: No Decubitus Ulcer Present: No History Surgical Site Infection Following: None Review of Systems - Constitutional Constitutional: absent: Chills, Fever - EENT Eyes: absent: Change in Vision Nose/Mouth/Throat: absent: Sore Throat - Cardiovascular Cardiovascular: Chest Pain. absent: Dyspnea - Respiratory Respiratory: absent: Cough, Hemoptysis - Gastrointestinal Gastrointestinal: absent: Diarrhea, Nausea, Vomiting - Genitourinary Genitourinary: absent: Difficulty Urinating, Dysuria - Musculoskeletal Musculoskeletal: absent: Back Pain - Integumentary Integumentary: absent: Wounds - Neurological Neurological: Dizziness, Weakness (generalized). absent: Confusion, Numbness, Focal Weakness - Psychiatric Psychiatric: Anxiety - Endocrine Endocrine: absent: Palpitations, Polydipsia, Polyphagia, Polyuria - Hematologic/Lymphatic Hematologic: absent: Easy Bleeding, Easy Bruising Past Patient History - Infectious Disease Hx of Infectious Diseases: None - Tetanus Immunizations Tetanus Immunization: Unknown - Past Medical History & Family History Past Medical History?: Yes - Past Social History Smoking Status: Never Smoked - CARDIAC Hx Cardiac Disorders: Yes Hx Hypercholesterolemia: Yes Hx Pacemaker: Yes - PULMONARY Hx Respiratory Disorders: No - NEUROLOGICAL Hx Neurological Disorder: No Hx Alzheimer's Disease: No - HEENT Hx HEENT Problems: No - RENAL Hx Chronic Kidney Disease: No - ENDOCRINE/METABOLIC Hx Endocrine Disorders: Yes Hx Diabetes Mellitus Type 2: Yes - HEMATOLOGICAL/ONCOLOGICAL Hx Blood Disorders: No Hx AIDS: No Hx Human Immunodeficiency Virus (HIV): No - INTEGUMENTARY Hx Dermatological Problems: No - MUSCULOSKELETAL/RHEUMATOLOGICAL Hx Musculoskeletal Disorders: Yes Hx Arthritis: Yes Hx Falls: Yes - GASTROINTESTINAL Hx Gastrointestinal Disorders: Yes Hx Diverticulitis: Yes Hx Gastritis: Yes - GENITOURINARY/GYNECOLOGICAL Hx Genitourinary Disorders: No - PSYCHIATRIC Hx Psychophysiologic Disorder: Yes Hx Anxiety: Yes Hx Depression: Yes Hx Substance Use: No - SURGICAL HISTORY Hx Surgeries: Yes Hx Cholecystectomy: Yes Hx Coronary Artery Bypass Graft: Yes Hx Herniorrhaphy: Yes Hx Tonsillectomy: Yes - ANESTHESIA Hx Anesthesia: Yes Hx Anesthesia Reactions: No Hx Malignant Hyperthermia: No Meds Allergies/Adverse Reactions: Allergies Allergy/AdvReac Type Severity Reaction Status Date / Time No Known Allergies Allergy Verified 05/17/18 16:57 Physical Exam - Constitutional Appears: No Acute Distress - Head Exam Head Exam: ATRAUMATIC, NORMOCEPHALIC - Eye Exam Eye Exam: EOMI - ENT Exam ENT Exam: Mucous Membranes Moist - Neck Exam Neck exam: Positive for: Full Rom. Negative for: Lymphadenopathy - Respiratory Exam Respiratory Exam: Clear to Auscultation Bilateral, NORMAL BREATHING PATTERN - Cardiovascular Exam Cardiovascular Exam: REGULAR RHYTHM - GI/Abdominal Exam GI & Abdominal Exam: Normal Bowel Sounds, Soft, Tenderness (mild) - Extremities Exam Extremities exam: Positive for: full ROM. Negative for: calf tenderness, pedal edema - Back Exam Back exam: absent: CVA tenderness (L), CVA tenderness (R) - Neurological Exam Neurological exam: Alert, CN II-XII Intact (grossly intact), Oriented x3 - Psychiatric Exam Psychiatric exam: Normal Affect, Normal Mood - Skin Skin Exam: Dry, Warm Results - Vital Signs Recent Vital Signs: Last Vital Signs Temp 97.9 F 05/18/18 04:56 Pulse 64 05/18/18 04:56 Resp 18 05/18/18 04:56 BP 146/69 05/18/18 04:56 Pulse Ox 96 05/18/18 04:56 - Labs Result Diagrams: 05/17/18 18:00 05/18/18 11:54 Labs: Laboratory Results - last 24 hr 05/17/18 05/17/18 05/17/18 18:00 18:00 18:00 WBC 9.2 RBC 3.73 L Hgb 11.1 L Hct 33.2 L MCV 89.0 MCH 29.7 MCHC 33.3 RDW 14.9 H Plt Count 251 MPV 8.0 Neut % (Auto) 68.4 Lymph % (Auto) 21.6 [place] % (Auto) 5.6 Eos % (Auto) 3.8 Baso % (Auto) 0.6 Neut # (Auto) 6.3 Lymph # (Auto) 2.0 [place] # (Auto) 0.5 Eos # (Auto) 0.3 Baso # (Auto) 0.1 PT 13.6 H INR 1.2 APTT 32.4 pO2 VBG pH VBG pCO2 VBG HCO3 VBG Total CO2 VBG O2 Sat (Calc) VBG Base Excess VBG Potassium Sodium 136 Chloride 100 Glucose Lactate FiO2 Crit Value Called To Crit Value Called By Crit Value Read Back Blood Gas Notified Time Potassium 4.5 Carbon Dioxide 23 Anion Gap 18 BUN 12 Creatinine 1.0 Est GFR ( Amer) > 60 Est GFR (Non-Af Amer) 53 Random Glucose 194 H Calcium 9.2 Total Bilirubin 0.5 AST 60 H D ALT 44 Alkaline Phosphatase 96 Troponin I 0.0180 NT-Pro-B Natriuret Pep 2120 H Total Protein 7.1 Albumin 3.7 Globulin 3.4 Albumin/Globulin Ratio 1.1 Lipase 77 Venous Blood Potassium Urine Color Urine Clarity Urine pH Ur Specific [place] Urine Protein Urine Glucose (UA) Urine Ketones Urine Blood Urine Nitrate Urine Bilirubin Urine Urobilinogen Ur Leukocyte Esterase Urine RBC (Auto) Urine Microscopic WBC Ur Squamous Epith Cells Urine Bacteria Hyaline Casts 05/17/18 05/17/18 05/17/18 18:00 19:00 19:20 WBC RBC Hgb Hct MCV MCH MCHC RDW Plt Count MPV Neut % (Auto) Lymph % (Auto) [place] % (Auto) Eos % (Auto) Baso % (Auto) Neut # (Auto) Lymph # (Auto) [place] # (Auto) Eos # (Auto) Baso # (Auto) PT INR APTT pO2 52 27 L VBG pH 7.16 L* 7.40 VBG pCO2 59 41 VBG HCO3 17.8 24.0 VBG Total CO2 22.8 26.7 VBG O2 Sat (Calc) 86.4 H 57.2 VBG Base Excess -8.4 L 0.5 VBG Potassium 4.9 Sodium 123.0 L 135.0 Chloride 99.0 102.0 Glucose 218 H 177 H Lactate 4.3 H* 4.1 H* FiO2 21.0 21.0 Crit Value Called To Dr alina lazar Crit Value Called By Rt Rt Crit Value Read Back Y Y Blood Gas Notified Time 1829 1917 Potassium Carbon Dioxide Anion Gap BUN Creatinine Est GFR ( Amer) Est GFR (Non-Af Amer) Random Glucose Calcium Total Bilirubin AST ALT Alkaline Phosphatase Troponin I NT-Pro-B Natriuret Pep Total Protein Albumin Globulin Albumin/Globulin Ratio Lipase Venous Blood Potassium 4.9 Urine Color Yellow Urine Clarity Slighty-cloudy Urine pH 6.0 Ur Specific [place] 1.013 Urine Protein Negative Urine Glucose (UA) 150 Urine Ketones Negative Urine Blood Negative Urine Nitrate Negative Urine Bilirubin Negative Urine Urobilinogen 2.0 H Ur Leukocyte Esterase Mod Urine RBC (Auto) 1 Urine Microscopic WBC 5 Ur Squamous Epith Cells 4 Urine Bacteria Rare Hyaline Casts 0-2 Assessment & Plan - Assessment and Plan (Free Text) Assessment: 82 yr old F admitted for chest pain, generalized weakness, lactic acidosis and dehydration. Plan: -admit to telemetry -cardiac monitoring -f/u serial troponin, HbA1c -IV fluids-LR -Zofran PRN -heart healthy diet -continue home medications -adjust medications to improve glycemic control - Date & Time Date: 05/18/18 Time: 07:43
[2018-05-18] MEDS: Digoxin 125 mcg (0.125 mg) Tab PO SCH (08:47)
[2018-05-18] MEDS: Pantoprazole 20 mg EC Tab PO SCH (08:51)
[2018-05-18] MEDS: Levothyroxine 88 MCG TAB PO SCH (08:52)
--- NOTE | 2018-05-18 10:23 | CARD ---
APPROVED REPORT EKG Measurement Heart [id number] <Conclusion> Atrial-paced rhythm ST & T wave abnormality, consider anterior ischemia Abnormal ECG
[2018-05-18] MEDS: Lactated Ringer's 1,000 ML IV SCH (11:16)
[2018-05-18 12:23] LABS: ALB/GLOB RATIO 1.2 (1.0-2.1); ALBUMIN 3.5 g/dL (3.5-5.0); ALT/SGPT 41 U/L (9-52); AST/SGOT 58 U/L (14-36); BLOOD UREA NITROGEN 10 mg/dl (7-17); GFR AFRICAN-AMERICAN > 60; GFR NON-AFRICAN AMERICAN 60
[2018-05-18] MEDS: Insulin Lispro (humaLOG) 100 Units/ml Inj SC SCH ×3 (12:36→21:22)
[2018-05-19] MEDS: Lactated Ringer's 1,000 ML IV SCH ×2 (01:48→11:15)
[2018-05-19] MEDS: Levothyroxine 88 MCG TAB PO SCH (06:31)
[2018-05-19] MEDS: Insulin Lispro (humaLOG) 100 Units/ml Inj SC SCH ×4 (06:32→21:52)
[2018-05-19] MEDS: Digoxin 125 mcg (0.125 mg) Tab PO SCH (09:14)
[2018-05-19] MEDS: Pantoprazole 20 mg EC Tab PO SCH (09:15)
[2018-05-20] MEDS: Lactated Ringer's 1,000 ML IV SCH ×2 (04:50→13:05)
[2018-05-20] MEDS: Levothyroxine 88 MCG TAB PO SCH (06:50)
--- NOTE | 2018-05-20 07:59 | CP.PCM.CON ---
History of Present Illness - History of Present Illness History of Present Illness: I was asked to see this patient by Dr Richardson. [email or web address] is a 82 year old female with PMH HTN, CAD s/p CABG, afib, DM dementia PPM who presents with weakness and abdominal pain. the patient had complaint of chest pain, described as pressure, but unclear if the pain was upper abdominal. No current dyspnea. Review of Systems - Constitutional Constitutional: Weakness - EENT Eyes: absent: As Per HPI, Blind Spots, Blurred Vision, Change in Vision, Decreased Night Vision, Diplopia, Discharge, Dry Eye, Exophthalmos, Floaters, Irritation, Itchy Eyes, Loss of Peripheral Vision, Pain, Photophobia, Requires Corrective Lenses, Sees Flashes, Spots in Vision, Tunnel Vision, Other Visual Disturbances, Loss of Vision, Other Ears: absent: As Per HPI, Decreased Hearing, Ear Discharge, Ear Pain, Tinnitus, Abnormal Hearing, Disequilibrium, Dizziness, Other Nose/Mouth/Throat: absent: As Per HPI, Epistaxis, Nasal Congestion, Nasal Discharge, Nasal Obstruction, Nasal Trauma, Nose Pain, Post Nasal Drip, Sinus Pain, Sinus Pressure, Bleeding Gums, Change in Voice, Dental Pain, Dry Mouth, Dysphagia, Halitosis, Hoarsness, Lip Swelling, Mouth Lesions, Mouth Pain, Odynophagia, Sore Throat, Throat Swelling, Tongue Swelling, Facial Pain, Neck Pain, Neck Mass, Other - Cardiovascular Cardiovascular: Chest Pain - Respiratory Respiratory: absent: As Per HPI, Cough, Dyspnea, Hemoptysis, Dyspnea on Exertion , Wheezing, Snoring, Stridor, Pain on Inspiration, Chest Congestion, Excessive Mucous Production, Change in Mucous Color, Pain with Coughing, Other - Gastrointestinal Gastrointestinal: Abdominal Pain - Genitourinary Genitourinary: absent: As Per HPI, Change in Urinary Stream, Difficulty Urinating, Dysuria, Flank Pain, Hematuria, Pyuria, Nocturia, Urinary Incontinence, Urinary Frequency, Urinary Hesitance, Urinary Urgency, Voiding Freq/Small Amts, Freq UTI, Hx Renal/Bladder Calculi, Hx /Renal Surgery, Bladder Distension, Other - Musculoskeletal Musculoskeletal: absent: As Per HPI, Abnormal Gait, Arthralgias, Atrophy, Back Pain, Deformity, Joint Swelling, Limited Range of Motion, Loss of Height, Muscle Cramps, Muscle Weakness, Myalgias, Neck Pain, Numbness, Radiating Pain into Limb, Stiffness, Tingling, Other - Integumentary Integumentary: absent: As Per HPI, Acne, Alopecia, Bleeding Lesions, Change in Hair, Change in Nails, Change in Pigmentation, Changing Lesions, Dry Skin, Erythema, Furuncle, Hirsutism, Lesions, New Lesions, Non-Healing Lesions, Photosensitivity, Pruritus, Rash, Skin Pain, Skin Ulcer, Sores, Striae, Swelling , Unusual Bruising, Wounds, Jaundice, Other - Neurological Neurological: absent: As Per HPI, Abnormal Gait, Abnormal Hearing, Abnormal Movements, Abnormal Speech, Behavioral Changes, Burning Sensations, Confusion, Convulsions, Disequilibrium, Dizziness, Numbness, Focal Weakness, Frequent Falls , Headaches, Lack of Coordination, Loss of Vision, Memory Loss, Paresthesias, Radicular Pain, Restless Legs, Sensory Deficit, Syncope, Tingling, Tremor, Vertigo, Weakness, Other Visual Disturbances, Other - Psychiatric Psychiatric: absent: As Per HPI, Abnormal Sleep Pattern, Anhedonia, Anxiety, Auditory Hallucinations, Behavioral Changes, Change in Appetite, Change in Libido, Confusion, Depression, Difficulty Concentrating, Hallucinations, Homicidal Ideation, Hopelessness, Irritability, Memory Loss, Mood Swings, Panic Attacks, Paranoia, Suicidal Ideation, Visual Hallucinations, Tactile Hallucinations, Other - Endocrine Endocrine: absent: As Per HPI, Change in Body Appearance, Change in Libido, Cold Intolorance, Deepening of Voice, Excessive Sweating, Fatigue, Flushing, Heat Intolorance, Increase in Ring/Shoe/Hat Size, Palpitations, Polydipsia, Polyphagia, Polyuria, Other - Hematologic/Lymphatic Hematologic: absent: As Per HPI, Easy Bleeding, Easy Bruising, Lymphadenopathy, Other Past Patient History - Infectious Disease Hx of Infectious Diseases: None - Tetanus Immunizations Tetanus Immunization: Unknown - Past Medical History & Family History Past Medical History?: Yes - Past Social History Smoking Status: Never Smoked - CARDIAC Hx Atrial Fibrillation: No Hx Cardia Arrhythmia: No Hx Congestive Heart Failure: No Hx Hypercholesterolemia: Yes Hx Hypertension: Yes Hx Pacemaker: Yes - PULMONARY Hx Emphysema: No Hx Pulmonary Embolism: Yes - NEUROLOGICAL Hx Alzheimer's Disease: No - HEENT Hx HEENT Problems: No - RENAL Hx Chronic Kidney Disease: No - ENDOCRINE/METABOLIC Hx Hypothyroidism: Yes - HEMATOLOGICAL/ONCOLOGICAL Hx Human Immunodeficiency Virus (HIV): No - INTEGUMENTARY Hx Dermatological Problems: No - MUSCULOSKELETAL/RHEUMATOLOGICAL Hx Arthritis: Yes - GASTROINTESTINAL Hx Diverticulitis: Yes Hx Gastritis: Yes - GENITOURINARY/GYNECOLOGICAL Hx Genitourinary Disorders: No - PSYCHIATRIC Hx Anxiety: Yes Hx Depression: Yes - SURGICAL HISTORY Hx Cholecystectomy: Yes Hx Coronary Artery Bypass Graft: Yes Hx Tonsillectomy: Yes - ANESTHESIA Hx Anesthesia: Yes Hx Anesthesia Reactions: No Hx Malignant Hyperthermia: No Meds Allergies/Adverse Reactions: Allergies Allergy/AdvReac Type Severity Reaction Status Date / Time No Known Allergies Allergy Verified 05/17/18 16:57 - Medications Medications: Current Medications Acetaminophen (Tylenol 325mg Tab) 650 mg PO Q4 PRN PRN Reason: Headache Last Admin: 05/19/18 14:31 Dose: 650 mg Apixaban (Eliquis) 2.5 mg PO Q12 [facility] PRN Reason: Protocol Last Admin: 05/19/18 21:52 Dose: 2.5 mg Atorvastatin Calcium (Lipitor) 10 mg PO DAILY@2200 [facility] Last Admin: 05/19/18 21:52 Dose: 10 mg Carvedilol (Coreg) 3.125 mg PO Q12H [facility] Last Admin: 05/20/18 06:51 Dose: 3.125 mg Digoxin (Digoxin) 0.125 mg PO DAILY [facility] Last Admin: 05/19/18 09:14 Dose: 0.125 mg Escitalopram Oxalate (Lexapro) 5 mg PO QPM [facility] Last Admin: 05/19/18 17:26 Dose: 5 mg Escitalopram Oxalate (Lexapro) 10 mg PO DAILY [facility] Last Admin: 05/19/18 09:16 Dose: 10 mg Lactated Ringer's (Lactated Ringer's) 1,000 mls @ 80 mls/hr IV .[id number] [facility] Last Admin: 05/20/18 04:50 Dose: 80 mls/hr Insulin Human Lispro (Humalog) 0 units SC ACHS [facility] PRN Reason: Protocol Last Admin: 05/19/18 21:52 Dose: Not Given Lactulose (Enulose) 10 gm PO DAILY PRN PRN Reason: Constipation Levothyroxine Sodium (Synthroid) 88 mcg PO DAILY@0630 [facility] Last Admin: 05/20/18 06:50 Dose: 88 mcg Meclizine HCl (Antivert) 12.5 mg PO Q8 [facility] Last Admin: 05/20/18 01:11 Dose: 12.5 mg Midodrine (Proamatine) 7.5 mg PO TID [facility] Last Admin: 05/19/18 16:47 Dose: 7.5 mg Ondansetron HCl (Zofran Inj) 4 mg IVP Q6 PRN PRN Reason: Nausea/Vomiting Last Admin: 05/18/18 11:09 Dose: 4 mg Pantoprazole Sodium (Protonix Ec Tab) 20 mg PO DAILY [facility] Last Admin: 05/19/18 09:15 Dose: 20 mg Sitagliptin Phosphate (Januvia) 100 mg PO DAILY [facility] Last Admin: 05/19/18 09:16 Dose: 100 mg Physical Exam - Constitutional Appears: Non-toxic - Head Exam Head Exam: NORMAL INSPECTION - Eye Exam Eye Exam: Normal appearance - ENT Exam ENT Exam: Mucous Membranes Dry - Neck Exam Neck exam: Positive for: Full Rom - Respiratory Exam Respiratory Exam: Decreased Breath Sounds - Cardiovascular Exam Cardiovascular Exam: Irregular Rhythm - GI/Abdominal Exam GI & Abdominal Exam: Normal Bowel Sounds - Rectal Exam Rectal Exam: Deferred - Extremities Exam Extremities exam: Negative for: pedal edema - Back Exam Back exam: NORMAL INSPECTION - Neurological Exam Neurological exam: Alert, Oriented x3 - Psychiatric Exam Psychiatric exam: Normal Affect - Skin Skin Exam: Normal Color Results - Vital Signs Recent Vital Signs: Last Vital Signs Temp 98.2 F 05/20/18 04:58 Pulse 62 05/20/18 06:51 Resp 18 05/20/18 04:58 BP 154/69 H 05/20/18 06:51 Pulse Ox 95 05/20/18 04:58 - Labs Result Diagrams: 05/17/18 18:00 05/18/18 11:54 Labs: Laboratory Results - last 24 hr 05/19/18 05/19/18 05/19/18 11:43 13:08 16:36 POC Glucose (mg/dL) 268 H 185 H Troponin I 0.0130 05/19/18 21:28 POC Glucose (mg/dL) 179 H Troponin I - EKG Data EKG Interpreted by: Myself Assessment & Plan (1) Atrial fibrillation Assessment and Plan: EKG shows atrial paced rhythm. recommend continued medical therapy. on Eliquis Status: Acute (2) Chest pain Assessment and Plan: no ischemia on EKG. will treat medically. Status: Acute (3) Coronary artery disease Assessment and Plan: no current markers of ischemia. medical therapy Status: Chronic (4) HTN (hypertension) Assessment and Plan: blood pressure control Status: Chronic
[2018-05-20] MEDS: Digoxin 125 mcg (0.125 mg) Tab PO SCH (08:05)
[2018-05-20] MEDS: Insulin Lispro (humaLOG) 100 Units/ml Inj SC SCH ×4 (08:06→21:02)
[2018-05-20] MEDS: Pantoprazole 20 mg EC Tab PO SCH (08:07)
--- NOTE | 2018-05-20 22:52 | CP.PCM.PN ---
Subjective - Date & Time of Evaluation Date of Evaluation: 05/19/18 Time of Evaluation: 09:35 - Subjective Subjective: Patient remains stable Has no chest pain or SOB afebrile Objective - Vital Signs/Intake and Output Vital Signs (last 24 hours): Temp Pulse Resp BP Pulse Ox 98.3 F 60 18 132/75 96 05/20/18 20:00 05/20/18 20:00 05/20/18 20:00 05/20/18 20:00 05/20/18 20:00 Intake and Output: 05/20/18 05/21/18 18:59 06:59 Intake Total 1050 Balance 1050 - Medications Medications: Current Medications Acetaminophen (Tylenol 325mg Tab) 650 mg PO Q4 PRN PRN Reason: Headache Last Admin: 05/19/18 14:31 Dose: 650 mg Apixaban (Eliquis) 2.5 mg PO Q12 [facility] PRN Reason: Protocol Last Admin: 05/20/18 20:57 Dose: 2.5 mg Atorvastatin Calcium (Lipitor) 10 mg PO DAILY@2200 [facility] Last Admin: 05/20/18 21:00 Dose: 10 mg Carvedilol (Coreg) 3.125 mg PO Q12H [facility] Last Admin: 05/20/18 17:47 Dose: 3.125 mg Digoxin (Digoxin) 0.125 mg PO DAILY [facility] Last Admin: 05/20/18 08:05 Dose: 0.125 mg Escitalopram Oxalate (Lexapro) 5 mg PO QPM [facility] Last Admin: 05/20/18 17:06 Dose: 5 mg Escitalopram Oxalate (Lexapro) 10 mg PO DAILY [facility] Last Admin: 05/20/18 08:08 Dose: 10 mg Lactated Ringer's (Lactated Ringer's) 1,000 mls @ 80 mls/hr IV .[id number] [facility] Last Admin: 05/20/18 13:05 Dose: 80 mls/hr Insulin Human Lispro (Humalog) 0 units SC ACHS [facility] PRN Reason: Protocol Last Admin: 05/20/18 21:02 Dose: Not Given Lactulose (Enulose) 10 gm PO DAILY PRN PRN Reason: Constipation Levothyroxine Sodium (Synthroid) 88 mcg PO DAILY@0630 [facility] Last Admin: 05/20/18 06:50 Dose: 88 mcg Meclizine HCl (Antivert) 12.5 mg PO Q8 [facility] Last Admin: 05/20/18 17:05 Dose: 12.5 mg Midodrine (Proamatine) 7.5 mg PO TID [facility] Last Admin: 05/20/18 17:05 Dose: 7.5 mg Ondansetron HCl (Zofran Inj) 4 mg IVP Q6 PRN PRN Reason: Nausea/Vomiting Last Admin: 05/18/18 11:09 Dose: 4 mg Pantoprazole Sodium (Protonix Ec Tab) 20 mg PO DAILY [facility] Last Admin: 05/20/18 08:07 Dose: 20 mg Sitagliptin Phosphate (Januvia) 100 mg PO DAILY [facility] Last Admin: 05/20/18 08:06 Dose: 100 mg - Labs Labs: 05/17/18 18:00 05/18/18 11:54 PT 13.6 Seconds (9.8-13.1) H 05/17/18 18:00 INR 1.2 (0.9-1.2) 05/17/18 18:00 APTT 32.4 Seconds (25.6-37.1) 05/17/18 18:00
--- NOTE | 2018-05-20 22:53 | CP.PCM.PN ---
Subjective - Date & Time of Evaluation Date of Evaluation: 05/20/18 Time of Evaluation: 13:40 - Subjective Subjective: Patient was noted to have significant orthostasis again. Currently on midodrine 7.5 tid Objective - Vital Signs/Intake and Output Vital Signs (last 24 hours): Temp Pulse Resp BP Pulse Ox 98.3 F 60 18 132/75 96 05/20/18 20:00 05/20/18 20:00 05/20/18 20:00 05/20/18 20:00 05/20/18 20:00 Intake and Output: 05/20/18 05/21/18 18:59 06:59 Intake Total 1050 Balance 1050 - Medications Medications: Current Medications Acetaminophen (Tylenol 325mg Tab) 650 mg PO Q4 PRN PRN Reason: Headache Last Admin: 05/19/18 14:31 Dose: 650 mg Apixaban (Eliquis) 2.5 mg PO Q12 [facility] PRN Reason: Protocol Last Admin: 05/20/18 20:57 Dose: 2.5 mg Atorvastatin Calcium (Lipitor) 10 mg PO DAILY@2200 [facility] Last Admin: 05/20/18 21:00 Dose: 10 mg Carvedilol (Coreg) 3.125 mg PO Q12H [facility] Last Admin: 05/20/18 17:47 Dose: 3.125 mg Digoxin (Digoxin) 0.125 mg PO DAILY [facility] Last Admin: 05/20/18 08:05 Dose: 0.125 mg Escitalopram Oxalate (Lexapro) 5 mg PO QPM [facility] Last Admin: 05/20/18 17:06 Dose: 5 mg Escitalopram Oxalate (Lexapro) 10 mg PO DAILY [facility] Last Admin: 05/20/18 08:08 Dose: 10 mg Glipizide (Glucotrol Xl) 5 mg PO BRK [facility] Lactated Ringer's (Lactated Ringer's) 1,000 mls @ 80 mls/hr IV .[id number] [facility] Last Admin: 05/20/18 13:05 Dose: 80 mls/hr Insulin Human Lispro (Humalog) 0 units SC ACHS [facility] PRN Reason: Protocol Last Admin: 05/20/18 21:02 Dose: Not Given Lactulose (Enulose) 10 gm PO DAILY PRN PRN Reason: Constipation Levothyroxine Sodium (Synthroid) 88 mcg PO DAILY@0630 [facility] Last Admin: 05/20/18 06:50 Dose: 88 mcg Meclizine HCl (Antivert) 12.5 mg PO Q8 [facility] Last Admin: 05/20/18 17:05 Dose: 12.5 mg Midodrine (Proamatine) 7.5 mg PO TID [facility] Last Admin: 05/20/18 17:05 Dose: 7.5 mg Ondansetron HCl (Zofran Inj) 4 mg IVP Q6 PRN PRN Reason: Nausea/Vomiting Last Admin: 05/18/18 11:09 Dose: 4 mg Pantoprazole Sodium (Protonix Ec Tab) 20 mg PO DAILY [facility] Last Admin: 05/20/18 08:07 Dose: 20 mg Sitagliptin Phosphate (Januvia) 100 mg PO DAILY [facility] Last Admin: 05/20/18 08:06 Dose: 100 mg - Labs Labs: 05/17/18 18:00 05/18/18 11:54 PT 13.6 Seconds (9.8-13.1) H 05/17/18 18:00 INR 1.2 (0.9-1.2) 05/17/18 18:00 APTT 32.4 Seconds (25.6-37.1) 05/17/18 18:00
[2018-05-21] MEDS: Lactated Ringer's 1,000 ML IV SCH (00:42)
[2018-05-21] MEDS: Levothyroxine 88 MCG TAB PO SCH (06:25)
[2018-05-21] MEDS ORDERED: GlipiZIDE 5 mg SR Tab PO SCH (08:00)
[2018-05-21 08:20] VITALS: O2SAT 96
[2018-05-21] MEDS: Digoxin 125 mcg (0.125 mg) Tab PO SCH (09:03)
[2018-05-21 09:04] VITALS: PULSE 65
[2018-05-21] MEDS: Insulin Lispro (humaLOG) 100 Units/ml Inj SC SCH ×2 (09:04→12:55)
[2018-05-21] MEDS: Pantoprazole 20 mg EC Tab PO SCH (09:04)
[2018-05-21 10:21] LABS: HEMOGLOBIN 11.5 g/dL (12.0-16.0); MEAN CELL VOLUME 89.1 fl (81.0-99.0); MEAN CORPUSCULAR HGB CONC 33.7 g/dL (33.0-37.0); RBC 3.83 Mil/uL (3.80-5.20); RED CELL DISTRIBUTION WIDTH 15.1 % (11.5-14.5); WHITE BLOOD COUNT 8.7 K/uL (4.8-10.8)
[2018-05-21 10:35] LABS: BLOOD UREA NITROGEN 8 mg/dl (7-17); CALCIUM 8.8 mg/dL (8.4-10.2); GFR AFRICAN-AMERICAN > 60; GFR NON-AFRICAN AMERICAN 60
[2018-05-21 12:32] VITALS: BP 152/66; PULSE 60; RESP 18; TEMP 97.7
--- NOTE | 2018-05-28 14:45 | PQF ---
PROVIDER RESPONSE TEXT: Atypical chest pain REVIEWER QUERY TEXT: Clarification of Clinical Diagnostic Findings Etiology of the Chest Pain? : if known after the work up is completed OR;Unable to determine ER: ER; Admit tele given lactic acidosis. Cipro started for small UTI although unlikely source of hyp otension currently;requested low dose anxiolytic low dose ativan Rx. Clinical Impression: Lactic acidosis, Acute chest pain, Anxiety H and P: admitted for for chest pain, generalized weakness, lactic acidosis and dehydration. Plan: -admit to tele -f/u serial troponin, HbA1c -IV fluids-LR -Zofran PRN -heart healthy diet -niki nue home meds -adjust meds to improve glycemic control ardiology consult: Plan : (1) Atrial fibrillation: EKG shows atrial paced rhythm. recommend niki nued medical therapy. on Eliquis :Acute (2) Chest pain : no ischemia on EKG. will treat medically. :Acute (3) CAD no current markers of ischemia. medical therapy :Chronic (4) HTN : blood pressure control: Chronic The patient's Clinical Indicators include: xxx Query created by: Kathy Gale on 05/21/2018 9:24 AM Electronically signed by: Ishan Peters MD 05/28/2018 2:43 PM
== END 2018-05-21 15:00 | disposition home or self-care (01) | DRG 641 ==
LOC: H.ER 16:53 → H.ERHOLD 20:17 → H.TEL 05-18 00:08
PROVIDERS: ADMIT Family Medicine; ATTEND Family Medicine
DX: E87.2 Acidosis (principal); N39.0 Urinary tract infection, site not specified; E86.0 Dehydration; I48.91 Unspecified atrial fibrillation; R07.89 Other chest pain; F03.90 Unspecified dementia, unspecified severity, without behavioral disturbance, psychotic disturbance, mood disturbance, and anxiety; I25.10 Atherosclerotic heart disease of native coronary artery without angina pectoris; I95.1 Orthostatic hypotension; I10 Essential (primary) hypertension; E03.9 Hypothyroidism, unspecified; E11.9 Type 2 diabetes mellitus without complications; E78.00 Pure hypercholesterolemia, unspecified; F41.9 Anxiety disorder, unspecified; K29.70 Gastritis, unspecified, without bleeding; M19.90 Unspecified osteoarthritis, unspecified site; Z79.01 Long term (current) use of anticoagulants; Z79.84 Long term (current) use of oral hypoglycemic drugs; Z95.0 Presence of cardiac pacemaker; Z95.1 Presence of aortocoronary bypass graft; Z86.711 Personal history of pulmonary embolism; Z90.49 Acquired absence of other specified parts of digestive tract

== ENCOUNTER 2018-06-29 09:25 | Emergency (ER) | payer MEDICARE, OTHER ==
[2018-06-29 09:25] VITALS: PULSE 65
[2018-06-29 09:34] VITALS: BMI 28.1
[2018-06-29 09:35] VITALS: PULSE 62; RESP 18
[2018-06-29 09:44] VITALS: O2SAT 98
[2018-06-29] MEDS ORDERED: Sodium Chloride 0.9% 1,000 ML IV STA (09:53)
[2018-06-29] MEDS ORDERED: Iohexol 240 (50 ml) PO ONE (09:53)
--- NOTE | 2018-06-29 09:59 | ED PDOC ---
HPI: Abdomen Time Seen by Provider: 06/29/18 09:36 Chief Complaint (Nursing): Abdominal Pain Chief Complaint (Provider): Abd pain History Per: Patient History/Exam Limitations: no limitations Onset/Duration Of Symptoms: Days (yesterday evening) Other Location:: Current Symptoms Are (Timing): Still Present Additional Complaint(s): Abd pain across lower. No dysuria, but urinating less. No back pain. No chest pain, dyspnea, weakness, cough, fever, headache, dizziness. Similar to when she got diverticulitis. PCP Dr. Peters. Past Medical History Reviewed: Nursing Documentation, Vital Signs Vital Signs: Last Vital Signs Temp 97.6 F 06/29/18 09:35 Pulse 62 06/29/18 09:35 Resp 18 06/29/18 09:35 BP 147/66 06/29/18 09:35 Pulse Ox 98 06/29/18 10:03 - Medical History PMH: Anxiety, Arthritis, Atrial Fibrillation, CAD, Depression, Diabetes (type II , takes Metformin), Diverticulitis, Gastritis, HTN, Hypercholesterolemia, Hypothyroidism Denies: Alzheimer's Disease, Cardia Arrhythmia, CHF, Emphysema, HIV, Chronic Kidney Disease - Surgical History Surgical History: CABG, Cholecystectomy, Hernia Repair, Pacemaker, Tonsillectomy - Family History Family History: States: Unknown Family Hx - Immunization History Hx Tetanus Toxoid Vaccination: No Hx Influenza Vaccination: No Hx Pneumococcal Vaccination: No - Home Medications Home Medications: Ambulatory Orders Medication Instructions Recorded Levothyroxine [Synthroid] 88 mcg PO DAILY 07/11/17 Digoxin 0.125 mg PO DAILY 04/16/18 Apixaban [Eliquis] 2.5 mg PO BID tab 04/20/18 SITagliptin [Januvia] 100 mg PO DAILY tab 04/20/18 Meclizine [Antivert] 12.5 mg PO Q8 #90 tab 05/21/18 Amiodarone [Cordarone] 200 mg PO DAILY 06/29/18 Atorvastatin [Lipitor] 10 mg PO MWF 06/29/18 Escitalopram [Lexapro] 5 mg PO BID 06/29/18 LORazepam [Ativan] 0.5 mg PO Q12 06/29/18 MetFORMIN ER [Glucophage XR] 500 mg PO DAILY 06/29/18 Midodrine [Proamatine] 5 mg PO TID 06/29/18 Nitrofurantoin Macrocrystals 100 mg PO BID #10 cap 06/29/18 [Macrobid] [place]-3 Fatty Acids/Fish Oil 1,000 mg PO BID 06/29/18 [[place]-3 1,000 mg Softgel] Pantoprazole Sodium [Protonix] 40 mg PO DAILY 06/29/18 - Allergies Allergies/Adverse Reactions: Allergies Allergy/AdvReac Type Severity Reaction Status Date / Time No Known Allergies Allergy Verified 06/29/18 09:40 Review of Systems ROS Statement: Except As Marked, All Systems Reviewed And Found Negative Gastrointestinal: Positive for: Abdominal Pain Physical Exam - Reviewed Nursing Documentation Reviewed: Yes Vital Signs Reviewed: Yes - Physical Exam Appears: Positive for: Non-toxic, No Acute Distress Head Exam: Positive for: ATRAUMATIC, NORMAL INSPECTION, NORMOCEPHALIC Skin: Positive for: Normal Color, Warm, DRY Eye Exam: Positive for: EOMI, Normal appearance, PERRL ENT: Positive for: Normal ENT Inspection Neck: Positive for: Normal, Painless ROM Cardiovascular/Chest: Positive for: Regular Rate, Rhythm Respiratory: Positive for: CNT, Normal Breath Sounds Gastrointestinal/Abdominal: Positive for: Soft, Tenderness (across lower below umbilical) Back: Positive for: Normal Inspection. Negative for: L CVA Tenderness, R CVA Tenderness Extremity: Positive for: Normal ROM. Negative for: Tenderness Neurologic/Psych: Positive for: Alert, Oriented - Laboratory Results Result Diagrams: 06/29/18 10:00 06/29/18 10:00 Interpretation Of Abn Labs: urine wbc, dig ,0.4, 292 glucose - ECG O2 Sat by Pulse Oximetry: 98 - Progress ED Course And Treament: 1348: Stable. AAOx3. Pain free. Tolerated PO. Fu with pcp. Dig level low, but pt. recently put on amiodarone. Spoke with Dr. Woody. States pt. does not dig anymore and can stop it. Spoke with Dr. Peters who agrees with plan and reason pt. in ER. Will fu. Disposition - Clinical Impression Clinical Impression: UTI (urinary tract infection), Abdominal pain - Patient ED Disposition Is Patient to be Admitted: No Counseled Patient/Family Regarding: Studies Performed, Diagnosis, Need For Followup, Rx Given - Disposition Referrals: Ishan Peters MD [Staff Provider] - 07/02/18 Miguel Angel Woody MD [Staff Provider] - 07/02/18 Disposition: Routine/Home Disposition Time: 13:20 Condition: STABLE Additional Instructions: Return if not better in 3 days. Stop your digoxin per Dr. Woody. Fu with him and Dr. Peters in 3 days. Prescriptions: Nitrofurantoin Macrocrystals [Macrobid] 100 mg PO BID #10 cap Instructions: Urinary Tract Infections in Adults, Acute Abdomen (Belly Pain), Adult (DC) Forms: [employer] (Yoruba) Print Language: GERMAN
[2018-06-29 10:06] LABS: BASO # 0.1 K/uL (0.0-0.2); BASO % 0.7 % (0.0-2.0); EOS # 0.2 K/uL (0.0-0.7); EOS % 2.1 % (0.0-4.0); HEMOGLOBIN 10.5 g/dL (12.0-16.0); LYMPH # 1.4 K/uL (1.0-4.3); LYMPH % 14.1 % (20.0-40.0); MEAN CELL VOLUME 88.5 fl (81.0-99.0); MEAN CORPUSCULAR HEMOGLOBIN 30.3 pg (27.0-31.0); MEAN CORPUSCULAR HGB CONC 34.3 g/dL (33.0-37.0); MEAN PLATELET VOLUME 7.8 fl (7.2-11.7); MONO # 0.3 K/uL (0.0-0.8); MONO % 3.4 % (0.0-10.0); NEUT # 7.8 K/uL (1.8-7.0); NEUT % 79.7 % (50.0-75.0); NRBC % 0.1 % (0.0-0.0); RBC 3.47 Mil/uL (3.80-5.20); RED CELL DISTRIBUTION WIDTH 15.6 % (11.5-14.5); WHITE BLOOD COUNT 9.8 K/uL (4.8-10.8)
[2018-06-29] MEDS ORDERED: Iohexol 240 (50 ml) ONE (10:09)
[2018-06-29 10:12] LABS: INR 1.5; PROTHROMBIN TIME 16.2 Seconds (9.8-13.1)
[2018-06-29 10:14] LABS: PARTIAL THROMBOPLASTIN TIME 39.2 Seconds (25.6-37.1)
[2018-06-29 10:20] LABS: ALB/GLOB RATIO 1.3 (1.0-2.1); ALBUMIN 4.1 g/dL (3.5-5.0); ALT/SGPT 41 U/L (9-52); AST/SGOT 60 U/L (14-36); BLOOD UREA NITROGEN 16 mg/dl (7-17); CALCIUM 9.7 mg/dL (8.4-10.2); GFR AFRICAN-AMERICAN > 60; GFR NON-AFRICAN AMERICAN 53
--- NOTE | 2018-06-29 11:02 | RAD ---
Date of service: 06/29/2018 HISTORY: Dyspnea and weakness. COMPARISON: 05/17/2018. FINDINGS: LUNGS: No active pulmonary disease. PLEURA: No significant pleural effusion identified, no pneumothorax apparent. CARDIOVASCULAR: No radiographic findings to suggest acute or significant cardiovascular disease. Position/ configuration of pacemaker device: Satisfactory. No significant interval change compared to the prior examination(s). OSSEOUS STRUCTURES: No significant abnormalities. VISUALIZED UPPER ABDOMEN: Normal. OTHER FINDINGS: None. IMPRESSION: No active disease. No significant interval change compared to the prior examination(s).
[2018-06-29 11:06] LABS: SQUAMOUS EPITHIAL 4 /hpf (0-5); URINE BACTERIA RARE (<OCC); URINE BILIRUBIN NEGATIVE (NEGATIVE); URINE BLOOD NEGATIVE (NEGATIVE); URINE CLARITY SLIGHTY-CLOUDY (Clear); URINE COLOR YELLOW (YELLOW); URINE GLUCOSE (UA) >=500 mg/dL (Normal); URINE LEUKOCYTE ESTERASE SMALL Leu/uL (Negative); URINE PROTEIN NEGATIVE (NEGATIVE); URINE UROBILINOGEN 0.2-1.0 mg/dL (0.2-1.0)
[2018-06-29] MEDS ORDERED: Iohexol 300 100 ML IJ ONE (12:24)
[2018-06-29] MEDS ORDERED: Sodium Chloride 0.9% 50 ML IV ONE (12:24)
--- NOTE | 2018-06-29 13:11 | CT ---
Date of service: 06/29/2018 PROCEDURE: CT Abdomen and Pelvis with contrast HISTORY: abd pain COMPARISON: Abdomen Pelvis CT with contrast 05/17/2018. TECHNIQUE: Following oral and intravenous contrast administration, a CT examination of the abdomen and pelvis performed from the domes of the diaphragms to the symphysis pubis with reformatted datasets provided not only axial but also sagittal and coronal series. Contrast dose: Omnipaque 300, 95 cc Radiation dose: Total exam DLP = 755.79 mGy-cm. This CT exam was performed using one or more of the following dose reduction techniques: Automated exposure control, adjustment of the mA and/or kV according to patient size, and/or use of iterative reconstruction technique. FINDINGS: LOWER THORAX: Trace bilateral pleural effusions are identified. There is cardiomegaly but no pericardial effusion. Right heart leads from a permanent cardiac pacemaker is identified. Prior median sternotomy is noted. No definite infiltrates. LIVER: Diffuse the diminished attenuation throughout the liver compatible with hepatic steatosis once again. No discrete mass is evident. Mild intrahepatic biliary duct dilatation is appreciated as well as pneumobilia status post prior cholecystectomy, stable in appearance. GALLBLADDER AND BILE DUCTS: Prior cholecystectomy reiterated. Pneumobilia noted at common bile duct. PANCREAS: Unremarkable. No gross lesion or ductal dilatation. SPLEEN: Unremarkable. ADRENALS: Unremarkable. No mass. KIDNEYS AND URETERS: No obstructive uropathy bilaterally or discrete renal mass. Parenchymal calcification is again seen at the mid to lower pole left kidney with a few cortical defects appreciate bilaterally suggesting small infarcts, chronic. VASCULATURE: Unremarkable. No aortic aneurysm. BOWEL: Stomach is largely decompressed and limited evaluation but stable in appearance grossly. No bowel obstruction is appreciated throughout. Extensive left colonic diverticular changes are seen, concentrated at the sigmoid segment without definite diverticulitis pattern evident. APPENDIX: Normal appendix. PERITONEUM: Unremarkable. No free fluid. No free air. LYMPH NODES: Unremarkable. No enlarged lymph nodes. BLADDER: Urinary bladder is distended but thin and smooth walled. No radiodense urolithiasis related. REPRODUCTIVE: No suspicious adnexal findings. BONES: No acute fracture. OTHER FINDINGS: None. IMPRESSION: 1. Stable prominent sigmoid diverticulosis without diverticulitis. 2. Distended but thin walled urinary bladder which is otherwise unremarkable appearing. Clinically correlate given clinical history of dysuria reported by the patient. 3. Hepatic steatosis reiterated as well as prior cholecystectomy and pneumobilia at CBD and nondependent intrahepatic bile ducts.
[2018-06-29 14:08] VITALS: BP 162/77; TEMP 98
--- NOTE | 2018-06-29 17:11 | CARD ---
APPROVED REPORT Date of service: 06/29/2018 EKG Measurement Heart [id number] 162P [id number] <Conclusion> Atrial-paced rhythm Anterior infarct, age undetermined ST & T wave abnormality, consider lateral ischemia Abnormal ECG
== END 2018-06-29 14:26 | disposition home or self-care (01) ==
LOC: H.ER 09:25
DX: N39.0 Urinary tract infection, site not specified (principal); R10.9 Unspecified abdominal pain
CPT/HCPCS: 71045; 74177; 80053; 80162; 81003; 84484; 85025; 85610; 85730; 87040; 87086; 87205; 93005; 96374; 99283; J1885; J7030; Q9966; Q9967

== ENCOUNTER 2018-07-01 13:53 | Inpatient (IN) | payer MEDICARE, OTHER ==
[2018-07-01 13:54] VITALS: PULSE 65; BMI 28.1
[2018-07-01] MEDS ORDERED: cefTRIAXone (Rocephin) 1 gm Inj IVPB ONE (14:54)
[2018-07-01 15:10] LABS: BASO # 0.1 K/uL (0.0-0.2); BASO % 1.2 % (0.0-2.0); EOS # 0.3 K/uL (0.0-0.7); EOS % 2.9 % (0.0-4.0); HEMOGLOBIN 11.4 g/dL (12.0-16.0); LYMPH # 1.9 K/uL (1.0-4.3); MEAN CELL VOLUME 89.4 fl (81.0-99.0); MEAN CORPUSCULAR HEMOGLOBIN 29.7 pg (27.0-31.0); MEAN CORPUSCULAR HGB CONC 33.2 g/dL (33.0-37.0); MEAN PLATELET VOLUME 7.7 fl (7.2-11.7); MONO # 0.5 K/uL (0.0-0.8); MONO % 4.5 % (0.0-10.0); NEUT # 7.6 K/uL (1.8-7.0); NEUT % 73.4 % (50.0-75.0); NRBC % 0.1 % (0.0-0.0); RBC 3.84 Mil/uL (3.80-5.20); RED CELL DISTRIBUTION WIDTH 15.2 % (11.5-14.5); WHITE BLOOD COUNT 10.3 K/uL (4.8-10.8)
[2018-07-01 15:21] LABS: VENOUS BLOOD GAS BASE EXCESS 0.7 mmol/L (0.0-2.0); VENOUS BLOOD GAS PCO2 40 mmHg (40-60); VENOUS BLOOD GAS PO2 32 mm/Hg (30-55); VENOUS BLOOD PH 7.41 (7.32-7.43)
[2018-07-01 15:21] LABS: ALB/GLOB RATIO 1.2 (1.0-2.1); ALBUMIN 4.3 g/dL (3.5-5.0); ALT/SGPT 42 U/L (9-52); AST/SGOT 75 U/L (14-36); BLOOD UREA NITROGEN 13 mg/dl (7-17); CALCIUM 9.6 mg/dL (8.4-10.2); GFR AFRICAN-AMERICAN > 60; GFR NON-AFRICAN AMERICAN 53; LIPASE 205 U/L (23-300)
[2018-07-01] MEDS ORDERED: Sodium Chloride 0.9% 1,000 ML IV STA (15:23)
[2018-07-01 15:51] LABS: SQUAMOUS EPITHIAL 4 /hpf (0-5); URINE BILIRUBIN NEGATIVE (NEGATIVE); URINE BLOOD NEGATIVE (NEGATIVE); URINE CLARITY SLIGHTY-CLOUDY (Clear); URINE COLOR YELLOW (YELLOW); URINE GLUCOSE (UA) 150 mg/dL (Normal); URINE LEUKOCYTE ESTERASE MOD Leu/uL (Negative); URINE PROTEIN NEGATIVE (NEGATIVE)
--- NOTE | 2018-07-01 16:21 | ED PDOC ---
HPI: General Adult Time Seen by Provider: 07/01/18 14:35 Chief Complaint (Nursing): Abnormal Labs Chief Complaint (Provider): ABDOMINAL PAIN History Per: Patient (82 Y/O FEMALE HERE FOR EVALUATION OF POSITIVE BLOOD CULTURE FROM 06/29 ED VISIT. PATIENT WAS NOTED TO HAVE LOWER ABDOMINAL PAIN ONGOING DESPITE USE OF MACROBID. PATIENT DENIES ANY FEVERS/CHILLS/VOMITING/ DIARRHEA. HAD CT ABD/PELVIS 06/29 WNL. URINE CX NOTED CONTAMINATED. ONE BLOOD CULTURE POSITIVE GRAM NEG NATALIO. ) Past Medical History Reviewed: Historical Data, Nursing Documentation, Vital Signs Vital Signs: Last Vital Signs Temp 97.7 F 07/01/18 17:04 Pulse 63 07/01/18 17:04 Resp 16 07/01/18 17:04 BP 168/71 H 07/01/18 17:04 Pulse Ox 97 07/01/18 17:04 - Medical History PMH: Anxiety, Arthritis, CAD, Depression, Diabetes (type II, takes Metformin), Diverticulitis, Gastritis, HTN, Hypercholesterolemia, Hypothyroidism, Pulmonary Embolism Denies: Alzheimer's Disease, Atrial Fibrillation, Cardia Arrhythmia, CHF, Emphysema, HIV, Chronic Kidney Disease - Surgical History Surgical History: CABG, Cholecystectomy, Hernia Repair, Pacemaker, Tonsillectomy - Family History Family History: States: Unknown Family Hx - Immunization History Hx Tetanus Toxoid Vaccination: No Hx Influenza Vaccination: No Hx Pneumococcal Vaccination: No - Home Medications Home Medications: Ambulatory Orders Medication Instructions Recorded Levothyroxine [Synthroid] 88 mcg PO DAILY 07/11/17 Digoxin 0.125 mg PO DAILY 04/16/18 Apixaban [Eliquis] 2.5 mg PO BID tab 04/20/18 SITagliptin [Januvia] 100 mg PO DAILY tab 04/20/18 Meclizine [Antivert] 12.5 mg PO Q8 #90 tab 05/21/18 Amiodarone [Cordarone] 200 mg PO DAILY 06/29/18 Atorvastatin [Lipitor] 10 mg PO MWF 06/29/18 Escitalopram [Lexapro] 5 mg PO BID 06/29/18 LORazepam [Ativan] 0.5 mg PO Q12 06/29/18 MetFORMIN ER [Glucophage XR] 500 mg PO DAILY 06/29/18 Midodrine [Proamatine] 5 mg PO TID 08/10/18 Nitrofurantoin Macrocrystals 100 mg PO BID #10 cap 06/29/18 [Macrobid] [place]-3 Fatty Acids/Fish Oil 1,000 mg PO BID 06/29/18 [[place]-3 1,000 mg Softgel] Pantoprazole Sodium [Protonix] 40 mg PO DAILY 06/29/18 - Allergies Allergies/Adverse Reactions: Allergies Allergy/AdvReac Type Severity Reaction Status Date / Time No Known Allergies Allergy Verified 07/01/18 14:11 Review of Systems ROS Statement: Except As Marked, All Systems Reviewed And Found Negative Physical Exam - Reviewed Nursing Documentation Reviewed: Yes Vital Signs Reviewed: Yes - Physical Exam Appears: Positive for: Well, Non-toxic, No Acute Distress Head Exam: Positive for: ATRAUMATIC, NORMAL INSPECTION, NORMOCEPHALIC Skin: Positive for: Normal Color, Warm, DRY Eye Exam: Positive for: EOMI, Normal appearance, PERRL ENT: Positive for: Normal ENT Inspection Neck: Positive for: Normal, Painless ROM Cardiovascular/Chest: Positive for: Regular Rate, Rhythm Respiratory: Positive for: CNT, Normal Breath Sounds Gastrointestinal/Abdominal: Positive for: Normal Exam, Soft, Tenderness ( SUPRAPUBIC TENDERNESS NOTED), Hernia (UMBILICAL HERNIA NOTED) Pelvic Exam: Positive for: Other (PROTRUSION OF VAGINAL WALL NOTED THROUGH VAGINA. NO SIGNS OF CERVICAL DISEASE. NO VAGINAL DISCHARGE NOTED.) Back: Positive for: Normal Inspection Extremity: Positive for: Normal ROM Neurologic/Psych: Positive for: Alert, Oriented - Laboratory Results Result Diagrams: 07/01/18 15:04 07/01/18 15:04 - ECG ECG Rhythm: Positive for: Sinus Rhythm (T INVERSIONS NOTED LATERALLY SIMILAR TO OLD EKG; REVIEWED BY DR. BALLARD.) O2 Sat by Pulse Oximetry: 100 - Progress ED Course And Treament: ROCEPHIN 1 GM IV X 1 DOSE NS 1 LITER 500 ML PER HOUR LACTATED NOTED 3.4 WILL REPEAT IN 3 HOURS D/W DR. BANG. WILL ADMIT WITH ANTIBIOTICS AND RE-EVALUATE IN AM FOR POSSIBLE CT EVALUATION OF ABD PAIN Disposition - Clinical Impression Clinical Impression: Positive blood culture - Disposition
[2018-07-01 18:11] LABS: VENOUS BLOOD GAS BASE EXCESS -0.6 mmol/L (0.0-2.0); VENOUS BLOOD GAS PCO2 46 mmHg (40-60); VENOUS BLOOD GAS PO2 20 mm/Hg (30-55); VENOUS BLOOD PH 7.35 (7.32-7.43)
[2018-07-01] MEDS ORDERED: Dextrose 5%/Lactated Ringer's 1,000 ML IV SCH (21:30)
[2018-07-01] MEDS: Dextrose 5%/Lactated Ringer's 500 ML IV SCH (21:45)
[2018-07-01] MEDS: Insulin Regular 100 units/ml SC SCH (23:28)
[2018-07-02] MEDS: Dextrose 5%/Lactated Ringer's 500 ML IV SCH ×3 (04:23→19:02)
[2018-07-02] MEDS: Levothyroxine 88 MCG TAB PO SCH (06:30)
[2018-07-02] MEDS: Insulin Regular 100 units/ml SC SCH ×4 (07:35→22:12)
--- NOTE | 2018-07-02 08:07 | CARD ---
APPROVED REPORT Date of service: 07/01/2018 EKG Measurement Heart [id number] <Conclusion> Atrial-paced rhythm Anterior infarct, age undetermined ST & T wave abnormality, consider lateral ischemia Abnormal ECG
[2018-07-02] MEDS: Omega-3-Acid Ethyl Esters 1 GM Cap PO SCH ×2 (09:19→16:12)
[2018-07-02] MEDS: Pantoprazole 40 mg EC Tab PO SCH (09:20)
[2018-07-02] MEDS: Dextrose 5%/0.45% NS 1,000 ML IV SCH (21:54)
--- NOTE | 2018-07-03 00:27 | CP.PCM.CON ---
History of Present Illness - History of Present Illness History of Present Illness: urology. Pt seen for eval of difficulty voiding in recent days. She recently was hospitalized for diverticulitis.she was discharged then called back for tx of g neg rods in blood c&s. while here she had experienced some difficulty voiding. A post void residual was less than 250 cc. She is currently on IV antibiotics and I feel she will soon resume her normal voiding pattern. Will Follow Past Patient History - Infectious Disease Hx of Infectious Diseases: None - Tetanus Immunizations Tetanus Immunization: Unknown - Past Medical History & Family History Past Medical History?: Yes - Past Social History Smoking Status: Never Smoked - CARDIAC Hx Cardiac Disorders: Yes Hx Atrial Fibrillation: No Hx Cardia Arrhythmia: No Hx Congestive Heart Failure: No Hx Hypercholesterolemia: Yes Hx Hypertension: Yes Hx Pacemaker: Yes - PULMONARY Hx Respiratory Disorders: Yes Hx Emphysema: No Hx Pulmonary Embolism: Yes - NEUROLOGICAL Hx Neurological Disorder: No Hx Alzheimer's Disease: No - HEENT Hx HEENT Problems: Yes Other/Comment: Use Eyeglasses - RENAL Hx Chronic Kidney Disease: No - ENDOCRINE/METABOLIC Hx Endocrine Disorders: Yes Hx Diabetes Mellitus Type 2: Yes Hx Hypothyroidism: Yes - HEMATOLOGICAL/ONCOLOGICAL Hx Blood Disorders: No Hx Human Immunodeficiency Virus (HIV): No - INTEGUMENTARY Hx Dermatological Problems: No - MUSCULOSKELETAL/RHEUMATOLOGICAL Hx Musculoskeletal Disorders: Yes Hx Falls: Yes - GASTROINTESTINAL Hx Gastrointestinal Disorders: Yes Hx Diverticulitis: Yes Hx Gastritis: Yes - GENITOURINARY/GYNECOLOGICAL Hx Genitourinary Disorders: No - PSYCHIATRIC Hx Psychophysiologic Disorder: No Hx Substance Use: No - SURGICAL HISTORY Hx Surgeries: Yes Hx Cholecystectomy: Yes Hx Coronary Artery Bypass Graft: Yes Hx Tonsillectomy: Yes - ANESTHESIA Hx Anesthesia: Yes Hx Anesthesia Reactions: No Hx Malignant Hyperthermia: No Has any member of the family had a problem w/ anesthesia?: No Meds Allergies/Adverse Reactions: Allergies Allergy/AdvReac Type Severity Reaction Status Date / Time No Known Allergies Allergy Verified 07/01/18 14:11 - Medications Medications: Current Medications Amiodarone HCl (Cordarone) 200 mg PO DAILY [facility] Last Admin: 07/02/18 09:19 Dose: 200 mg Apixaban (Eliquis) 2.5 mg PO BID [facility] PRN Reason: Protocol Last Admin: 07/02/18 16:11 Dose: 2.5 mg Atorvastatin Calcium (Lipitor) 10 mg PO MWF [facility] Last Admin: 07/02/18 09:20 Dose: 10 mg Escitalopram Oxalate (Lexapro) 5 mg PO BID [facility] Last Admin: 07/02/18 16:11 Dose: 5 mg Ceftriaxone Sodium 1 gm/ (Sodium Chloride) 100 mls @ 100 mls/hr IVPB DAILY [facility] PRN Reason: Protocol Last Admin: 07/02/18 13:49 Dose: 100 mls/hr Dextrose/Sodium Chloride (Dextrose 5%/0.45% Ns 1000 Ml) 1,000 mls @ 80 mls/hr IV .[id number] [facility] Stop: 07/03/18 21:26 Last Admin: 07/02/18 21:54 Dose: 80 mls/hr Insulin Human Regular (Humulin R) 0 units [place] ACCU-CHECK [facility] PRN Reason: Protocol Last Admin: 07/02/18 22:12 Dose: Not Given Levothyroxine Sodium (Synthroid) 88 mcg PO DAILY@0630 [facility] Last Admin: 07/02/18 06:30 Dose: 88 mcg Lorazepam (Ativan) 0.5 mg PO Q12 [facility] Last Admin: 07/02/18 20:22 Dose: 0.5 mg Meclizine HCl (Antivert) 12.5 mg PO Q8 [facility] Last Admin: 07/02/18 16:11 Dose: 12.5 mg Midodrine (Proamatine) 5 mg PO TID [facility] Last Admin: 07/02/18 16:11 Dose: 5 mg [id number] Ethyl Esters (Lovaza) 1 gm PO BID [facility] Last Admin: 07/02/18 16:12 Dose: 1 gm Pantoprazole Sodium (Protonix Ec Tab) 40 mg PO DAILY [facility] Last Admin: 07/02/18 09:20 Dose: 40 mg Sitagliptin Phosphate (Januvia) 100 mg PO DAILY [facility] Last Admin: 07/02/18 09:19 Dose: 100 mg Results - Vital Signs Recent Vital Signs: Last Vital Signs Temp 98.4 F 07/03/18 00:07 Pulse 101 H 07/03/18 00:07 Resp 19 07/03/18 00:07 BP 130/67 07/03/18 00:07 Pulse Ox 97 07/03/18 00:07 - Labs Result Diagrams: 07/01/18 15:04 07/01/18 15:04 Labs: Laboratory Results - last 24 hr 07/01/18 07/02/18 07/02/18 22:55 06:25 13:45 POC Glucose (mg/dL) 151 H 192 H 207 H 07/02/18 07/02/18 15:44 22:09 POC Glucose (mg/dL) 275 H 172 H
[2018-07-03 06:34] LABS: MEAN CELL VOLUME 89.4 fl (81.0-99.0); MEAN CORPUSCULAR HEMOGLOBIN 29.6 pg (27.0-31.0); MEAN CORPUSCULAR HGB CONC 33.1 g/dL (33.0-37.0); RBC 3.72 Mil/uL (3.80-5.20); RED CELL DISTRIBUTION WIDTH 15.3 % (11.5-14.5); WHITE BLOOD COUNT 7.7 K/uL (4.8-10.8)
[2018-07-03] MEDS: Levothyroxine 88 MCG TAB PO SCH (06:35)
[2018-07-03] MEDS: Insulin Regular 100 units/ml SC SCH ×4 (06:35→22:36)
[2018-07-03 07:03] LABS: BLOOD UREA NITROGEN 7 mg/dl (7-17); CALCIUM 8.7 mg/dL (8.4-10.2); GFR AFRICAN-AMERICAN > 60; GFR NON-AFRICAN AMERICAN 60
--- NOTE | 2018-07-03 07:20 | CP.PCM.HP ---
History of Present Illness - History of Present Illness History of Present Illness: This is an 82 y/o female admitted because of positive blood C and S a on a recent ER visist, At that time she was sent home on po antibiotics for UTI. patient denies having any fever however complains of urinary retention and dysuria and lower abdominal pain. Has a hx of CAd HTN DM 2 anxiety gastritis depression and recently dizziness and orthostatic hypotension. She has a lot of hospitalizations in the past from chest pains and dizziness. Present on Admission - Present on Admission Any Indicators Present on Admission: No History of DVT/PE: No History of Uncontrolled Diabetes: Yes Urinary Catheter: No Decubitus Ulcer Present: No Review of Systems - Cardiovascular Cardiovascular: Palpitations - Gastrointestinal Gastrointestinal: Abdominal Pain, Constipation, Cramping - Genitourinary Genitourinary: Urinary Urgency, Freq UTI Past Patient History - Infectious Disease Hx of Infectious Diseases: None - Tetanus Immunizations Tetanus Immunization: Unknown - Past Medical History & Family History Past Medical History?: Yes - Past Social History Smoking Status: Never Smoked - CARDIAC Hx Cardiac Disorders: Yes Hx Atrial Fibrillation: No Hx Cardia Arrhythmia: No Hx Congestive Heart Failure: No Hx Hypercholesterolemia: Yes Hx Hypertension: Yes Hx Pacemaker: Yes - PULMONARY Hx Respiratory Disorders: Yes Hx Emphysema: No Hx Pulmonary Embolism: Yes - NEUROLOGICAL Hx Neurological Disorder: No Hx Alzheimer's Disease: No - HEENT Hx HEENT Problems: Yes Other/Comment: Use Eyeglasses - RENAL Hx Chronic Kidney Disease: No - ENDOCRINE/METABOLIC Hx Endocrine Disorders: Yes Hx Diabetes Mellitus Type 2: Yes Hx Hypothyroidism: Yes - HEMATOLOGICAL/ONCOLOGICAL Hx Blood Disorders: No Hx Human Immunodeficiency Virus (HIV): No - INTEGUMENTARY Hx Dermatological Problems: No - MUSCULOSKELETAL/RHEUMATOLOGICAL Hx Musculoskeletal Disorders: Yes Hx Falls: Yes - GASTROINTESTINAL Hx Gastrointestinal Disorders: Yes Hx Diverticulitis: Yes Hx Gastritis: Yes - GENITOURINARY/GYNECOLOGICAL Hx Genitourinary Disorders: No - PSYCHIATRIC Hx Psychophysiologic Disorder: No Hx Substance Use: No - SURGICAL HISTORY Hx Surgeries: Yes Hx Cholecystectomy: Yes Hx Coronary Artery Bypass Graft: Yes Hx Tonsillectomy: Yes - ANESTHESIA Hx Anesthesia: Yes Hx Anesthesia Reactions: No Hx Malignant Hyperthermia: No Has any member of the family had a problem w/ anesthesia?: No Meds Allergies/Adverse Reactions: Allergies Allergy/AdvReac Type Severity Reaction Status Date / Time No Known Allergies Allergy Verified 07/01/18 14:11 Physical Exam - Head Exam Head Exam: NORMAL INSPECTION - Eye Exam Eye Exam: Normal appearance - Respiratory Exam Respiratory Exam: Clear to Auscultation Bilateral - Cardiovascular Exam Cardiovascular Exam: REGULAR RHYTHM - GI/Abdominal Exam GI & Abdominal Exam: Normal Bowel Sounds - Neurological Exam Neurological exam: CN II-XII Intact, Oriented x3 - Psychiatric Exam Psychiatric exam: Normal Mood Results - Vital Signs Recent Vital Signs: Last Vital Signs Temp 98.4 F 07/03/18 00:07 Pulse 101 H 07/03/18 00:07 Resp 19 07/03/18 00:07 BP 130/67 07/03/18 00:07 Pulse Ox 97 07/03/18 00:07 - Labs Result Diagrams: 07/03/18 05:10 07/03/18 05:10 Labs: Laboratory Results - last 24 hr 07/01/18 07/02/18 07/02/18 22:55 06:25 13:45 WBC RBC Hgb Hct MCV MCH MCHC RDW Plt Count Sodium Potassium Chloride Carbon Dioxide Anion Gap BUN Creatinine Est GFR ( Amer) Est GFR (Non-Af Amer) POC Glucose (mg/dL) 151 H 192 H 207 H Random Glucose Calcium 07/02/18 07/02/18 07/03/18 15:44 22:09 05:10 WBC 7.7 RBC 3.72 L Hgb 11.0 L Hct 33.3 L MCV 89.4 MCH 29.6 MCHC 33.1 RDW 15.3 H Plt Count 233 Sodium Potassium Chloride Carbon Dioxide Anion Gap BUN Creatinine Est GFR ( Amer) Est GFR (Non-Af Amer) POC Glucose (mg/dL) 275 H 172 H Random Glucose Calcium 07/03/18 07/03/18 05:10 06:00 WBC RBC Hgb Hct MCV MCH MCHC RDW Plt Count Sodium 138 Potassium 4.2 Chloride 105 Carbon Dioxide 24 Anion Gap 13 BUN 7 Creatinine 0.9 Est GFR ( Amer) > 60 Est GFR (Non-Af Amer) 60 POC Glucose (mg/dL) 203 H Random Glucose 205 H Calcium 8.7 Assessment & Plan (1) Bacteremia Status: Acute (2) Abdominal pain Status: Acute (3) Orthostatic hypotension Status: Acute (4) UTI (urinary tract infection) Status: Acute - Assessment and Plan (Free Text) Plan: monitor labs start IV antibiotics urology eval ID eval hydrate
[2018-07-03] MEDS: Pantoprazole 40 mg EC Tab PO SCH (08:44)
[2018-07-03] MEDS: Omega-3-Acid Ethyl Esters 1 GM Cap PO SCH ×2 (08:44→17:12)
[2018-07-03] MEDS: Dextrose 5%/0.45% NS 1,000 ML IV SCH (10:00)
--- NOTE | 2018-07-03 11:41 | US ---
Date of service: 07/02/2018 HISTORY: Pelvic Pain COMPARISON: None available. TECHNIQUE: Transabdominal only. Real-time technique with 2D, duplex and color Doppler FINDINGS: UTERUS: Measures 2.4 x 3.7 x 6.4 cm. Normal in size, heterogeneous echo characteristics. No fibroid or other mass lesion seen. ENDOMETRIUM: Measures 1.9 mm in diameter. Unremarkable. CERVIX: No cervical abnormality identified. RIGHT OVARY: Non visible. LEFT OVARY: Not identified. FREE FLUID: No significant free fluid noted. OTHER FINDINGS: None. IMPRESSION: Heterogeneous uterus. No focal abnormalities. Limitations of the current examination: The adnexa are not visualized.
[2018-07-03 16:12] VITALS: O2SAT 98
[2018-07-04] MEDS: Levothyroxine 88 MCG TAB PO SCH (06:31)
--- NOTE | 2018-07-04 07:59 | CP.PCM.PN ---
Subjective - Date & Time of Evaluation Date of Evaluation: 07/03/18 Time of Evaluation: 10:30 - Subjective Subjective: Patient remains stable Has no fever Has less suprapubic / pelvic pains Blood C and S showed G neg rods . No ID yet. Objective - Vital Signs/Intake and Output Vital Signs (last 24 hours): Temp Pulse Resp BP Pulse Ox 98.5 F 66 18 127/76 98 07/04/18 00:40 07/04/18 00:40 07/04/18 00:40 07/04/18 00:40 07/04/18 00:40 - Medications Medications: Current Medications Amiodarone HCl (Cordarone) 200 mg PO DAILY [facility] Last Admin: 07/03/18 08:45 Dose: 200 mg Apixaban (Eliquis) 2.5 mg PO BID [facility] PRN Reason: Protocol Last Admin: 07/03/18 17:49 Dose: 2.5 mg Atorvastatin Calcium (Lipitor) 10 mg PO MWF [facility] Last Admin: 07/02/18 09:20 Dose: 10 mg Escitalopram Oxalate (Lexapro) 5 mg PO BID [facility] Last Admin: 07/03/18 17:11 Dose: 5 mg Ceftriaxone Sodium 1 gm/ (Sodium Chloride) 100 mls @ 100 mls/hr IVPB DAILY [facility] PRN Reason: Protocol Last Admin: 07/03/18 08:42 Dose: 100 mls/hr Insulin Human Regular (Humulin R) 0 units [place] ACCU-CHECK [facility] PRN Reason: Protocol Last Admin: 07/03/18 22:36 Dose: Not Given Levothyroxine Sodium (Synthroid) 88 mcg PO DAILY@0630 [facility] Last Admin: 07/04/18 06:31 Dose: 88 mcg Lorazepam (Ativan) 0.5 mg PO Q12 [facility] Last Admin: 07/03/18 21:29 Dose: 0.5 mg Meclizine HCl (Antivert) 12.5 mg PO Q8 [facility] Last Admin: 07/04/18 00:53 Dose: 12.5 mg Midodrine (Proamatine) 5 mg PO TID [facility] Last Admin: 07/03/18 17:11 Dose: 5 mg [id number] Ethyl Esters (Lovaza) 1 gm PO BID [facility] Last Admin: 07/03/18 17:12 Dose: 1 gm Pantoprazole Sodium (Protonix Ec Tab) 40 mg PO DAILY [facility] Last Admin: 07/03/18 08:44 Dose: 40 mg Sitagliptin Phosphate (Januvia) 100 mg PO DAILY [facility] Last Admin: 07/03/18 08:45 Dose: 100 mg - Labs Labs: 07/03/18 05:10 07/03/18 05:10 - Eye Exam Eye Exam: Normal appearance - ENT Exam ENT Exam: Mucous Membranes Moist - Respiratory Exam Respiratory Exam: Clear to Ausculation Bilateral - Cardiovascular Exam Cardiovascular Exam: REGULAR RHYTHM - GI/Abdominal Exam GI & Abdominal Exam: Soft - Neurological Exam Neurological Exam: Awake, Oriented x3 - Psychiatric Exam Psychiatric exam: Normal Mood Assessment and Plan (1) Bacteremia Status: Acute (2) Abdominal pain Status: Acute (3) Orthostatic hypotension Status: Acute (4) UTI (urinary tract infection) Status: Acute - Assessment and Plan (Free Text) Plan: Cont meds Cont tx Cont PT awaiting for results of blood C and S.
[2018-07-04 08:24] VITALS: BP 146/72; PULSE 61; RESP 20; TEMP 98.2
[2018-07-04] MEDS: Insulin Regular 100 units/ml SC SCH ×2 (08:30→13:21)
[2018-07-04] MEDS: Pantoprazole 40 mg EC Tab PO SCH (09:48)
[2018-07-04] MEDS: Omega-3-Acid Ethyl Esters 1 GM Cap PO SCH (09:49)
--- NOTE | 2018-07-04 11:25 | CP.PCM.PCO ---
Assessment & Plan - Assessment and Plan (Free Text) Assessment: pt. doing well today , denies fever, chills, abd pain, n/vd or sob patient's blood cx report from 06/29 + for Acinetobacter Lwoffi sensitive to all except Azetronam - see previous visit in [facility] pt. cleared for discharge to home today by on Augmentin 875 mg po q12 x 10 days pt. has f/u appointment next Monday with
--- NOTE | 2018-07-04 14:59 | CP.PCM.DIS ---
Provider - Provider Date of Admission: 07/01/18 16:31 Attending physician: Ishan Peters MD Time Spent in preparation of Discharge (in minutes): 30 Diagnosis - Discharge Diagnosis (1) Bacteremia Status: Resolved Hospital Course - Lab Results Lab Results: Micro Results 07/02/18 12:23 Blood Blood Culture - Preliminary NO GROWTH AFTER 48 HOURS 07/01/18 15:39 Blood Blood Culture - Preliminary NO GROWTH AFTER 48 HOURS 07/01/18 15:04 Blood Blood Culture - Preliminary NO GROWTH AFTER 48 HOURS 07/01/18 15:35 Urine,Clean Catch Urine Culture - Final No Growth (<1,000 CFU/ML) Most Recent Lab Values WBC 7.7 K/uL (4.8-10.8) 07/03/18 05:10 RBC 3.72 Mil/uL (3.80-5.20) L 07/03/18 05:10 Hgb 11.0 g/dL (12.0-16.0) L 07/03/18 05:10 Hct 33.3 % (34.0-47.0) L 07/03/18 05:10 MCV 89.4 fl (81.0-99.0) 07/03/18 05:10 MCH 29.6 pg (27.0-31.0) 07/03/18 05:10 MCHC 33.1 g/dL (33.0-37.0) 07/03/18 05:10 RDW 15.3 % (11.5-14.5) H 07/03/18 05:10 Plt Count 233 K/uL (130-400) 07/03/18 05:10 MPV 7.7 fl (7.2-11.7) 07/01/18 15:04 Neut % (Auto) 73.4 % (50.0-75.0) 07/01/18 15:04 Lymph % (Auto) 18.0 % (20.0-40.0) L 07/01/18 15:04 [place] % (Auto) 4.5 % (0.0-10.0) 07/01/18 15:04 Eos % (Auto) 2.9 % (0.0-4.0) 07/01/18 15:04 Baso % (Auto) 1.2 % (0.0-2.0) 07/01/18 15:04 Neut # (Auto) 7.6 K/uL (1.8-7.0) H 07/01/18 15:04 Lymph # (Auto) 1.9 K/uL (1.0-4.3) 07/01/18 15:04 [place] # (Auto) 0.5 K/uL (0.0-0.8) 07/01/18 15:04 Eos # (Auto) 0.3 K/uL (0.0-0.7) 07/01/18 15:04 Baso # (Auto) 0.1 K/uL (0.0-0.2) 07/01/18 15:04 pO2 20 mm/Hg (30-55) L 07/01/18 18:08 VBG pH 7.35 (7.32-7.43) 07/01/18 18:08 VBG pCO2 46 mmHg (40-60) 07/01/18 18:08 VBG HCO3 22.6 mmol/L 07/01/18 18:08 VBG Total CO2 26.8 mmol/L (22-28) 07/01/18 18:08 VBG O2 Sat (Calc) 31.4 % (40-65) L 07/01/18 18:08 VBG Base Excess -0.6 mmol/L (0.0-2.0) L 07/01/18 18:08 VBG Potassium 4.6 mmol/L (3.6-5.2) 07/01/18 18:08 Sodium 138.0 mmol/L (132-148) 07/01/18 18:08 Chloride 105.0 mmol/L (98-107) 07/01/18 18:08 Glucose 127 mg/dL (65-105) H 07/01/18 18:08 Lactate 3.0 mmol/L (0.7-2.1) H 07/01/18 18:08 FiO2 21.0 % 07/01/18 18:08 Sodium 138 mmol/l (132-148) 07/03/18 05:10 Potassium 4.2 MMOL/L (3.6-5.0) 07/03/18 05:10 Chloride 105 mmol/L (98-107) 07/03/18 05:10 Carbon Dioxide 24 mmol/L (22-30) 07/03/18 05:10 Anion Gap 13 (10-20) 07/03/18 05:10 BUN 7 mg/dl (7-17) 07/03/18 05:10 Creatinine 0.9 mg/dl (0.7-1.2) 07/03/18 05:10 Est GFR ( Amer) > 60 07/03/18 05:10 Est GFR (Non-Af Amer) 60 07/03/18 05:10 POC Glucose (mg/dL) 230 mg/dL (65-110) H 07/04/18 11:10 Random Glucose 205 mg/dL (65-105) H 07/03/18 05:10 Calcium 8.7 mg/dL (8.4-10.2) 07/03/18 05:10 Total Bilirubin 0.9 mg/dl (0.2-1.3) 07/01/18 15:04 AST 75 U/L (14-36) H D 07/01/18 15:04 ALT 42 U/L (9-52) 07/01/18 15:04 Alkaline Phosphatase 87 U/L (38-126) 07/01/18 15:04 Troponin I < 0.0120 ng/mL (0.00-0.120) 07/01/18 15:04 Total Protein 7.7 G/DL (6.3-8.2) 07/01/18 15:04 Albumin 4.3 g/dL (3.5-5.0) 07/01/18 15:04 Globulin 3.5 gm/dL (2.2-3.9) 07/01/18 15:04 Albumin/Globulin Ratio 1.2 (1.0-2.1) 07/01/18 15:04 Lipase 205 U/L (23-300) 07/01/18 15:04 Venous Blood Potassium 4.6 mmol/L (3.6-5.2) 07/01/18 18:08 Urine Color Yellow (YELLOW) 07/01/18 15:35 Urine Clarity Slighty-cloudy (Clear) 07/01/18 15:35 Urine pH 6.0 (5.0-8.0) 07/01/18 15:35 Ur Specific [place] 1.012 (1.003-1.030) 07/01/18 15:35 Urine Protein Negative mg/dL (NEGATIVE) 07/01/18 15:35 Urine Glucose (UA) 150 mg/dL (Normal) 07/01/18 15:35 Urine Ketones Negative mg/dL (NEGATIVE) 07/01/18 15:35 Urine Blood Negative (NEGATIVE) 07/01/18 15:35 Urine Nitrate Negative (NEGATIVE) 07/01/18 15:35 Urine Bilirubin Negative (NEGATIVE) 07/01/18 15:35 Urine Urobilinogen 2.0 mg/dL (0.2-1.0) H 07/01/18 15:35 Ur Leukocyte Esterase Mod [place]/uL (Negative) 07/01/18 15:35 Urine RBC (Auto) 2 /hpf (0-3) 07/01/18 15:35 Urine Microscopic WBC 11 /hpf (0-5) H 07/01/18 15:35 Ur Squamous Epith Cells 4 /hpf (0-5) 07/01/18 15:35 - Hospital Course Hospital Course: 82 yo F with hx CAD, hypertension, diabetes, gastritis was admitted due to being called back for positive blood cultures taken in ED. At the time, she was sent home on PO abx for suspected UTI. During this admission, she received empiric tx with rocephin, and has remained afebrile with stable vital signs. Repeat blood culture done on this admission negative. Specificities from original blood culture taken during ED visit 06/29 positive for Acinetobacter Lwoffii sensitive to all except azetronam; report found in previous visit chart. Doing well today, no fevers, chills, dyspnea, abdominal pain, urinary issues. For discharge today with script for augmentin 875 mg PO Q12 x 10 days; and she is to see Dr. Peters in the office in 1 week. Discharge Exam - Head Exam Head Exam: NORMAL INSPECTION - Eye Exam Eye Exam: Normal appearance - Respiratory Exam Respiratory Exam: Clear to PA & Lateral, NORMAL BREATHING PATTERN, UNREMARKABLE - Cardiovascular Exam Cardiovascular Exam: REGULAR RHYTHM, +S1, +S2 - GI/Abdominal Exam GI & Abdominal Exam: Normal Bowel Sounds, Soft. absent: Tenderness - Extremities Exam Extremities exam: normal inspection - Skin Skin Exam: Normal Color, Warm Discharge Plan - Discharge Medications Prescriptions: Amoxicillin/Clavulanate [Augmentin 875 MG-125 MG] 1 tab PO Q12 #20 tab Lactobacillus Acidophilus [Bacid Acidophilus] 1 cap PO BID #20 cap - Follow Up Plan Condition: GOOD Disposition: HOME/ ROUTINE Additional Instructions: pt. blood cx result final from 06/29 hacer ama con tanner primario dentro de 1 semana Referrals: Ishan Peters MD [Staff Provider] -
== END 2018-07-04 16:10 | disposition home or self-care (01) | DRG 872 ==
LOC: H.ER 13:53 → H.ERHOLD 16:31 → H.MEDSURG1 18:36
PROVIDERS: ADMIT Family Medicine; ATTEND Family Medicine
DX: R78.81 Bacteremia (principal); N39.0 Urinary tract infection, site not specified; K29.70 Gastritis, unspecified, without bleeding; I25.10 Atherosclerotic heart disease of native coronary artery without angina pectoris; I10 Essential (primary) hypertension; E11.9 Type 2 diabetes mellitus without complications; F41.9 Anxiety disorder, unspecified; M19.90 Unspecified osteoarthritis, unspecified site; E78.00 Pure hypercholesterolemia, unspecified; E03.9 Hypothyroidism, unspecified; Z95.1 Presence of aortocoronary bypass graft; Z95.0 Presence of cardiac pacemaker; I95.1 Orthostatic hypotension; Z86.711 Personal history of pulmonary embolism; F32.9 Major depressive disorder, single episode, unspecified; B96.89 Other specified bacterial agents as the cause of diseases classified elsewhere

== ENCOUNTER 2018-11-12 17:36 | Inpatient (IN) | payer MEDICARE, OTHER ==
[2018-11-12 17:36] VITALS: PULSE 65; BMI 28.1
--- NOTE | 2018-11-12 18:14 | ED PDOC ---
HPI: General Adult Time Seen by Provider: 11/12/18 17:48 Chief Complaint (Nursing): Trauma History Per: Family Onset/Duration Of Symptoms: Hrs (1) Current Symptoms Are (Timing): Still Present Severity: Moderate Additional Complaint(s): Fell while bending over to plug in [place] light. Hit left side of forehead. No LOC. With left periorbital swelling. Also injured left hand and right knee. N o weakness or parasthesias. Also c/o chest pain but denies palpitationsor dizziness Past Medical History Vital Signs: Last Vital Signs Temp 98.1 F 11/12/18 17:39 Pulse 63 11/12/18 17:39 Resp 18 11/12/18 17:39 BP 193/86 H 11/12/18 17:39 Pulse Ox 99 11/12/18 17:39 - Medical History PMH: Anxiety, Arthritis, CAD, Depression, Diabetes (type II, takes Metformin), Diverticulitis, Gastritis, HTN, Hypercholesterolemia, Hypothyroidism, Pulmonary Embolism Denies: Alzheimer's Disease, Atrial Fibrillation, Cardia Arrhythmia, CHF, Emphysema, HIV, Chronic Kidney Disease - Surgical History Surgical History: CABG, Cholecystectomy, Hernia Repair, Pacemaker, Tonsillectomy - Family History Family History: States: Unknown Family Hx - Immunization History Hx Tetanus Toxoid Vaccination: No Hx Influenza Vaccination: No Hx Pneumococcal Vaccination: No - Home Medications Home Medications: Ambulatory Orders Medication Instructions Recorded Levothyroxine [Synthroid] 88 mcg PO DAILY 07/11/17 Apixaban [Eliquis] 2.5 mg PO BID tab 04/20/18 SITagliptin [Januvia] 100 mg PO DAILY tab 04/20/18 Meclizine [Antivert] 12.5 mg PO Q8 #90 tab 05/21/18 Amiodarone [Cordarone] 200 mg PO DAILY 06/29/18 Atorvastatin [Lipitor] 10 mg PO MWF 06/29/18 Escitalopram [Lexapro] 5 mg PO BID 06/29/18 LORazepam [Ativan] 0.5 mg PO Q12 06/29/18 MetFORMIN ER [Glucophage XR] 500 mg PO DAILY 06/29/18 Midodrine [Proamatine] 5 mg PO TID 06/29/18 Helena-3 Fatty Acids/Fish Oil 1,000 mg PO BID 06/29/18 [Helena-3 1,000 mg Softgel] Pantoprazole Sodium [Protonix] 40 mg PO DAILY 06/29/18 Amoxicillin/Clavulanate [Augmentin 1 tab PO Q12 #20 tab 07/04/18 875 MG-125 MG] Lactobacillus Acidophilus [Bacid 1 cap PO BID #20 cap 07/04/18 Acidophilus] Apixaban [Eliquis] 2.5 mg PO BID 11/12/18 - Allergies Allergies/Adverse Reactions: Allergies Allergy/AdvReac Type Severity Reaction Status Date / Time No Known Allergies Allergy Verified 07/01/18 14:11 Review of Systems Cardiovascular: Positive for: Chest Pain Neurological: Positive for: Headache. Negative for: Weakness, Numbness, Dizziness Physical Exam - Reviewed Nursing Documentation Reviewed: Yes Vital Signs Reviewed: Yes - Physical Exam Appears: Positive for: Non-toxic, No Acute Distress Head Exam: Positive for: ATRAUMATIC, NORMAL INSPECTION, NORMOCEPHALIC Skin: Positive for: Normal Color, Warm, DRY Eye Exam: Positive for: EOMI, PERRL, Other (Left periorbital swelling and ec chymosis. No palp fx) ENT: Positive for: Normal ENT Inspection Neck: Positive for: Normal, Painless ROM Cardiovascular/Chest: Positive for: Regular Rate, Rhythm Respiratory: Positive for: CNT, Normal Breath Sounds Gastrointestinal/Abdominal: Positive for: Normal Exam, Soft Back: Positive for: Normal Inspection Extremity: Positive for: Other (Left hand mild tenderness and swelling. Right knee mild pre-patellar sweling and tenderness. FROM. No hip tenderness or deformity.) Neurologic/Psych: Positive for: Alert, Oriented - Laboratory Results Result Diagrams: 11/12/18 18:41 11/12/18 18:41 - ECG O2 Sat by Pulse Oximetry: 99 Disposition - Clinical Impression Clinical Impression: Head injury, Knee sprain - Patient ED Disposition Is Patient to be Admitted: Yes - Disposition Disposition Time: 19:48 Condition: FAIR - Pt Status Changed To: Hospital Disposition Of: Observation - POA Present On Arrival: None
[2018-11-12 18:53] LABS: BASO # 0.1 K/uL (0.0-0.2); BASO % 0.7 % (0.0-2.0); EOS # 0.2 K/uL (0.0-0.7); EOS % 3.4 % (0.0-4.0); HEMOGLOBIN 10.9 g/dL (12.0-16.0); LYMPH % 28.1 % (20.0-40.0); MEAN CELL VOLUME 89.5 fl (81.0-99.0); MEAN CORPUSCULAR HEMOGLOBIN 29.4 pg (27.0-31.0); MEAN CORPUSCULAR HGB CONC 32.9 g/dL (33.0-37.0); MEAN PLATELET VOLUME 7.6 fl (7.2-11.7); MONO # 0.5 K/uL (0.0-0.8); MONO % 6.3 % (0.0-10.0); NEUT # 4.4 K/uL (1.8-7.0); NEUT % 61.5 % (50.0-75.0); RBC 3.71 Mil/uL (3.80-5.20); RED CELL DISTRIBUTION WIDTH 15.6 % (11.5-14.5); WHITE BLOOD COUNT 7.2 K/uL (4.8-10.8)
[2018-11-12 18:54] LABS: ALB/GLOB RATIO 1.2 (1.0-2.1); ALBUMIN 4.4 g/dL (3.5-5.0); BLOOD UREA NITROGEN 23 mg/dl (7-17); CALCIUM 9.7 mg/dL (8.4-10.2); GFR NON-AFRICAN AMERICAN 43
[2018-11-12 18:56] LABS: INR 1.3
[2018-11-12 19:01] LABS: ALT/SGPT 46 U/L (9-52); AST/SGOT 68 U/L (14-36)
[2018-11-13] MEDS: Levothyroxine 88 MCG TAB PO SCH (06:03)
[2018-11-13] MEDS ORDERED: Patient's Own Med (Metformin Er [Glucophage Xr] 500 mg) PO SCH (09:00)
--- NOTE | 2018-11-13 10:02 | CT ---
Date of service: 11/12/2018 PROCEDURE: CT HEAD WITHOUT CONTRAST. HISTORY: r/o bleed COMPARISON: 04/16/2018 TECHNIQUE: Axial computed tomography images were obtained through the head/brain without intravenous contrast. Radiation dose: Total exam DLP = 948.92 mGy-cm. This CT exam was performed using one or more of the following dose reduction techniques: Automated exposure control, adjustment of the mA and/or kV according to patient size, and/or use of iterative reconstruction technique. FINDINGS: HEMORRHAGE: No intracranial hemorrhage. BRAIN: No mass effect or edema. Mild to moderate chronic periventricular white matter lucency with patchy subcortical and deep white matter lucency as well, consistent with microvascular white matter ischemic change. No evidence of acute infarct VENTRICLES: Unremarkable. No hydrocephalus. CALVARIUM: No fracture. Large left frontal scalp hematoma extending to the left superior palpebrum. PARANASAL SINUSES: Unremarkable as visualized. No significant inflammatory changes. MASTOID AIR CELLS: Unremarkable as visualized. No inflammatory changes. OTHER FINDINGS: None. IMPRESSION: No intracranial hemorrhage. Large left frontal scalp hematoma extending to left superior palpebrum. Chronic white matter ischemic change. Otherwise unremarkable. The preliminary findings for this examination were reported by [facility] at 7:05 p.m. on 11/12/2018. There is concurrence of this report with the preliminary findings.
[2018-11-13] MEDS: Pantoprazole 40 mg EC Tab PO SCH (10:08)
--- NOTE | 2018-11-13 10:16 | CT ---
Date of service: 11/12/2018 PROCEDURE: CT MAXILLOFACIAL BONES WITHOUT CONTRAST HISTORY: trauma COMPARISON: None available. TECHNIQUE: Contiguous axial CT images of the maxillofacial bones were obtained. Coronal and sagittal reformats were generated. Radiation dose: Total exam DLP = 783.5 mGy-cm. This CT exam was performed using one or more of the following dose reduction techniques: Automated exposure control, adjustment of the mA and/or kV according to patient size, and/or use of iterative reconstruction technique. FINDINGS: NASAL BONES: Unremarkable. ORBITS: No fracture. Swelling of left superior palpebrum contiguous with left frontal scalp hematoma. No intraorbital hemorrhage. PARANASAL SINUSES/ MASTOIDS: Minimal chronic ethmoid and bilateral maxillary sinusitis. MAXILLA: Unremarkable. MANDIBLE/ TEMPOROMANDIBULAR JOINTS: Unremarkable. SKULL BASE: Unremarkable. TEMPORAL BONES: Middle ears and mastoid grossly unremarkable. OTHER FINDINGS: Left frontal scalp hematoma IMPRESSION: No evidence of maxillofacial fracture. Left frontal scalp hematoma. Minimal chronic ethmoid and bilateral maxillary sinusitis. Otherwise unremarkable. The preliminary findings for this examination were reported by [facility] at 7:15 p.m. on 11/12/2018. There is concurrence of this report with the preliminary findings.
--- NOTE | 2018-11-13 11:29 | RAD ---
Date of service: 11/12/2018 HISTORY: cough COMPARISON: 06/29/2018 FINDINGS: LUNGS: No active pulmonary disease. PLEURA: No significant pleural effusion identified, no pneumothorax apparent. CARDIOVASCULAR: There is atherosclerotic Calcification of the thoracic aorta. Normal heart size. Status post CABG. Permanent pacemaker. No congestive change. No pulmonary vascular congestion. OSSEOUS STRUCTURES: No significant abnormalities. VISUALIZED UPPER ABDOMEN: Normal. OTHER FINDINGS: None. IMPRESSION: No active disease.
--- NOTE | 2018-11-13 11:30 | RAD ---
PROCEDURE: Left Hand Radiographs. HISTORY: trauma COMPARISON: None. FINDINGS: BONES: Normal. No fracture. JOINTS: Normal. No osteoarthritic changes. SOFT TISSUES: Normal. OTHER FINDINGS: None. IMPRESSION: Normal left hand radiographs.
--- NOTE | 2018-11-13 11:31 | RAD ---
Date of service: 11/12/2018 PROCEDURE: Right Knee Radiographs. HISTORY: trauma COMPARISON: None. FINDINGS: BONES: Normal. No fracture. JOINTS: Tricompartmental osteoarthritis. Joint space narrowing and marginal hypertrophy. No articular erosion. JOINT EFFUSION: None. OTHER FINDINGS: None. IMPRESSION: Tricompartmental osteoarthritis.
--- NOTE | 2018-11-13 15:56 | CP.PCM.HP ---
History of Present Illness - History of Present Illness History of Present Illness: This is an 82 y/o female admitted after a fall hitting her head against the floor and sustaining left periorb ital ecchymoses. She claims that she had a fall after she tried to arrange some lights on a [place] tree. She denies any loss of consciousness. She has a hx of CAD, atrial fibrillation and recently had significant Orthosta tic hypotension. She is currently on Eliquis, Midodrine and Amiodarone. She also has hx of CAD, HTN, DM 2, anxiety, depression and is on other medications. Past Patient History - Infectious Disease Hx of Infectious Diseases: None - Tetanus Immunizations Tetanus Immunization: Unknown - Past Medical History & Family History Past Medical History?: Yes - Past Social History Smoking Status: Never Smoked - CARDIAC Hx Cardiac Disorders: Yes - PULMONARY Hx Respiratory Disorders: Yes - NEUROLOGICAL Hx Neurological Disorder: No Hx Alzheimer's Disease: No - HEENT Hx HEENT Problems: Yes - RENAL Hx Chronic Kidney Disease: No - ENDOCRINE/METABOLIC Hx Endocrine Disorders: Yes Hx Diabetes Mellitus Type 2: Yes - HEMATOLOGICAL/ONCOLOGICAL Hx Blood Disorders: No Hx Human Immunodeficiency Virus (HIV): No - INTEGUMENTARY Hx Dermatological Problems: No - MUSCULOSKELETAL/RHEUMATOLOGICAL Hx Musculoskeletal Disorders: Yes Hx Falls: Yes - GASTROINTESTINAL Hx Gastrointestinal Disorders: Yes Hx Diverticulitis: Yes Hx Gastritis: Yes - GENITOURINARY/GYNECOLOGICAL Hx Genitourinary Disorders: No - PSYCHIATRIC Hx Psychophysiologic Disorder: Yes Hx Substance Use: No - SURGICAL HISTORY Hx Surgeries: Yes Hx Cholecystectomy: Yes Hx Coronary Artery Bypass Graft: Yes Hx Tonsillectomy: Yes - ANESTHESIA Hx Anesthesia: Yes Hx Anesthesia Reactions: No Hx Malignant Hyperthermia: No Meds Allergies/Adverse Reactions: Allergies Allergy/AdvReac Type Severity Reaction Status Date / Time No Known Allergies Allergy Verified 07/01/18 14:11 Results - Vital Signs Recent Vital Signs: Last Vital Signs Temp 97.9 F 11/13/18 12:37 Pulse 60 11/13/18 12:37 Resp 20 11/13/18 12:37 BP 132/71 11/13/18 12:37 Pulse Ox 100 11/13/18 12:37 - Labs Result Diagrams: 11/12/18 18:41 11/12/18 18:41 Labs: Laboratory Results - last 24 hr 11/12/18 11/12/18 11/12/18 18:41 18:41 18:41 WBC 7.2 RBC 3.71 L Hgb 10.9 L Hct 33.2 L MCV 89.5 MCH 29.4 MCHC 32.9 L RDW 15.6 H Plt Count 231 MPV 7.6 Neut % (Auto) 61.5 Lymph % (Auto) 28.1 Dickinson % (Auto) 6.3 Eos % (Auto) 3.4 Baso % (Auto) 0.7 Neut # (Auto) 4.4 Lymph # (Auto) 2.0 Dickinson # (Auto) 0.5 Eos # (Auto) 0.2 Baso # (Auto) 0.1 PT 15.0 H INR 1.3 Sodium 133 Potassium 4.9 Chloride 99 Carbon Dioxide 21 L Anion Gap 18 BUN 23 H Creatinine 1.2 Est GFR ( Amer) 52 Est GFR (Non-Af Amer) 43 POC Glucose (mg/dL) Random Glucose 99 Calcium 9.7 Total Bilirubin 0.5 AST 68 H ALT 46 Alkaline Phosphatase 113 Troponin I < 0.0120 Total Protein 8.0 Albumin 4.4 Globulin 3.6 Albumin/Globulin Ratio 1.2 11/13/18 06:29 WBC RBC Hgb Hct MCV MCH MCHC RDW Plt Count MPV Neut % (Auto) Lymph % (Auto) Dickinson % (Auto) Eos % (Auto) Baso % (Auto) Neut # (Auto) Lymph # (Auto) Dickinson # (Auto) Eos # (Auto) Baso # (Auto) PT INR Sodium Potassium Chloride Carbon Dioxide Anion Gap BUN Creatinine Est GFR ( Amer) Est GFR (Non-Af Amer) POC Glucose (mg/dL) 106 Random Glucose Calcium Total Bilirubin AST ALT Alkaline Phosphatase Troponin I Total Protein Albumin Globulin Albumin/Globulin Ratio
[2018-11-13] MEDS: Omega-3-Acid Ethyl Esters 1 GM Cap PO SCH (18:54)
--- NOTE | 2018-11-13 20:18 | CARD ---
APPROVED REPORT Date of service: 11/12/2018 EKG Measurement Heart [id number] <Conclusion> Normal sinus rhythm Right bundle branch block Abnormal ECG
[2018-11-14] MEDS: Levothyroxine 88 MCG TAB PO SCH (09:19)
[2018-11-14] MEDS: Omega-3-Acid Ethyl Esters 1 GM Cap PO SCH ×2 (09:20→17:35)
[2018-11-14] MEDS: Pantoprazole 40 mg EC Tab PO SCH (09:21)
--- NOTE | 2018-11-14 12:59 | CT ---
Date of service: 11/14/2018 PROCEDURE: CT HEAD WITHOUT CONTRAST. HISTORY: follow up , headache COMPARISON: 11/12/2018. TECHNIQUE: Axial computed tomography images were obtained through the head/brain without intravenous contrast. Radiation dose: Total exam DLP = 885.62 mGy-cm. This CT exam was performed using one or more of the following dose reduction techniques: Automated exposure control, adjustment of the mA and/or kV according to patient size, and/or use of iterative reconstruction technique. FINDINGS: HEMORRHAGE: No intracranial hemorrhage. BRAIN: There are mild chronic microangiopathic changes. There is no mass, mass effect or abnormal extra-axial fluid collection. There is no territorial infarction. The midline sagittal structures are normal. VENTRICLES: There is mild high age-related global parenchymal volume loss and proportionate enlargement of the ventricles and cortical sulci. CALVARIUM: There is no calvarial fracture. There is a moderate size left frontal scalp hematoma not significantly changed since the prior examination. There is mild periorbital soft tissue swelling. PARANASAL SINUSES: Predominantly clear. MASTOID AIR CELLS: Predominantly clear. OTHER FINDINGS: None. IMPRESSION: No acute intracranial abnormality. No major changes and mild age-related global parenchymal volume loss. Moderate size left frontal scalp hematoma and mild periorbital soft tissue swelling.
--- NOTE | 2018-11-14 19:11 | CP.PCM.CON ---
History of Present Illness - History of Present Illness History of Present Illness: I was asked to see patient by Dr Peters. Patient is a 82 year old female with HTN atrial fibrillation s/p PPM orthostasis who presents with fall. The patient was trying to change a light for [place], when she fell and hit her face. She denies loss of consiousness. The patient has known orthostasis. Review of Systems - Constitutional Constitutional: Weakness - EENT Eyes: absent: As Per HPI, Blind Spots, Blurred Vision, Change in Vision, Decreased Night Vision, Diplopia, Discharge, Dry Eye, Exophthalmos, Floaters, Irritation, Itchy Eyes, Loss of Peripheral Vision, Pain, Photophobia, Requires Corrective Lenses, Sees Flashes, Spots in Vision, Tunnel Vision, Other Visual Disturbances, Loss of Vision, Other Nose/Mouth/Throat: absent: As Per HPI, Epistaxis, Nasal Congestion, Nasal Discharge, Nasal Obstruction, Nasal Trauma, Nose Pain, Post Nasal Drip, Sinus Pain, Sinus Pressure, Bleeding Gums, Change in Voice, Dental Pain, Dry Mouth, Dysphagia, Halitosis, Hoarsness, Lip Swelling, Mouth Lesions, Mouth Pain, Odynophagia, Sore Throat, Throat Swelling, Tongue Swelling, Facial Pain, Neck Pain, Neck Mass, Other - Breasts Breasts: absent: As Per HPI, Change in Shape, Mass, Pain, Nipple Discharge, Nipple Inversion, Skin Changes, Swelling, Other - Cardiovascular Cardiovascular: absent: As Per HPI, Acrocyanosis, Chest Pain, Chest Pain at Rest, Chest Pain with Activity, Claudication, Diaphoresis, Dyspnea, Dyspnea on Exertion, Edema, Irregular Heart Rhythm, Pain Radiating to Arm/Neck/Jaw, Leg Edema, Leg Ulcers, Lightheadedness, Orthopnea, Palpitations, Paroxysmal Nocturnal Dyspnea, Pedal Edema, Radiating Pain, Rapid Heart Rate, Slow Heart Rate, Syncope, Other - Respiratory Respiratory: absent: As Per HPI, Cough, Dyspnea, Hemoptysis, Dyspnea on Exertion, Wheezing, Snoring, Stridor, Pain on Inspiration, Chest Congestion, Excessive Mucous Production, Change in Mucous Color, Pain with Coughing, Other - Gastrointestinal Gastrointestinal: absent: As Per HPI, Abdominal Pain, Belching, Bloating, Change in Bowel Habits, Change in Stool Character, Coffee Ground Emesis, Constipation, Cramping, Diarrhea, Dyspepsia, Dysphagia, Early Satiety, Excessive Flatus, Fecal Incontinence, Heartburn, Hematemesis, Hematochezia, Loose Stools, Melena, Nausea, Odynophagia, Temesmus, Vomiting, Other - Genitourinary Genitourinary: absent: As Per HPI, Change in Urinary Stream, Difficulty Urinating, Dysuria, Flank Pain, Hematuria, Pyuria, Nocturia, Urinary Incontinence, Urinary Frequency, Urinary Hesitance, Urinary Urgency, Voiding Freq/Small Amts, Freq UTI, Hx Renal/Bladder Calculi, Hx /Renal Surgery, B ladder Distension, Other - Musculoskeletal Musculoskeletal: absent: As Per HPI, Abnormal Gait, Arthralgias, Atrophy, Back Pain, Deformity, Joint Swelling, Limited Range of Motion, Loss of Height, Muscle Cramps, Muscle Weakness, Myalgias, Neck Pain, Numbness, Radiating Pain into Limb, Stiffness, Tingling, Other - Integumentary Integumentary: absent: As Per HPI, Acne, Alopecia, Bleeding Lesions, Change in Hair, Change in Nails, Change in Pigmentation, Changing Lesions, Dry Skin, Erythema, Furuncle, Hirsutism, Lesions, New Lesions, Non-Healing Lesions, Photosensitivity, Pruritus, Rash, Skin Pain, Skin Ulcer, Sores, Striae, Swelling, Unusual Bruising, Wounds, Jaundice, Other - Neurological Neurological: absent: As Per HPI, Abnormal Gait, Abnormal Hearing, Abnormal Movements, Abnormal Speech, Behavioral Changes, Burning Sensations, Confusion, Convulsions, Disequilibrium, Dizziness, Numbness, Focal Weakness, Frequent Falls, Headaches, Lack of Coordination, Loss of Vision, Memory Loss, Paresthesias, Radicular Pain, Restless Legs, Sensory Deficit, Syncope, Tingling, Tremor, Vertigo, Weakness, Other Visual Disturbances, Other - Psychiatric Psychiatric: absent: As Per HPI, Abnormal Sleep Pattern, Anhedonia, Anxiety, Auditory Hallucinations, Behavioral Changes, Change in Appetite, Change in Libido, Confusion, Depression, Difficulty Concentrating, Hallucinations, Homicidal Ideation, Hopelessness, Irritability, Memory Loss, Mood Swings, Panic Attacks, Paranoia, Suicidal Ideation, Visual Hallucinations, Tactile Hallucinations, Other - Endocrine Endocrine: absent: As Per HPI, Change in Body Appearance, Change in Libido, Cold Intolorance, Deepening of Voice, Excessive Sweating, Fatigue, Flushing, Heat Intolorance, Increase in Ring/Shoe/Hat Size, Palpitations, Polydipsia, Polyphagia, Polyuria, Other - Hematologic/Lymphatic Hematologic: absent: As Per HPI, Easy Bleeding, Easy Bruising, Lymphadenopathy, Other Past Patient History - Infectious Disease Hx of Infectious Diseases: None - Tetanus Immunizations Tetanus Immunization: Unknown - Past Medical History & Family History Past Medical History?: Yes - Past Social History Smoking Status: Never Smoked - CARDIAC Hx Cardiac Disorders: Yes - PULMONARY Hx Respiratory Disorders: Yes - NEUROLOGICAL Hx Neurological Disorder: No Hx Alzheimer's Disease: No - HEENT Hx HEENT Problems: Yes - RENAL Hx Chronic Kidney Disease: No - ENDOCRINE/METABOLIC Hx Endocrine Disorders: Yes Hx Diabetes Mellitus Type 2: Yes - HEMATOLOGICAL/ONCOLOGICAL Hx Blood Disorders: No Hx Human Immunodeficiency Virus (HIV): No - INTEGUMENTARY Hx Dermatological Problems: No - MUSCULOSKELETAL/RHEUMATOLOGICAL Hx Musculoskeletal Disorders: Yes Hx Falls: Yes - GASTROINTESTINAL Hx Gastrointestinal Disorders: Yes Hx Diverticulitis: Yes Hx Gastritis: Yes - GENITOURINARY/GYNECOLOGICAL Hx Genitourinary Disorders: No - PSYCHIATRIC Hx Psychophysiologic Disorder: Yes Hx Substance Use: No - SURGICAL HISTORY Hx Surgeries: Yes Hx Cholecystectomy: Yes Hx Coronary Artery Bypass Graft: Yes Hx Tonsillectomy: Yes - ANESTHESIA Hx Anesthesia: Yes Hx Anesthesia Reactions: No Hx Malignant Hyperthermia: No Meds Allergies/Adverse Reactions: Allergies Allergy/AdvReac Type Severity Reaction Status Date / Time No Known Allergies Allergy Verified 07/01/18 14:11 - Medications Medications: Current Medications Acetaminophen (Tylenol 325mg Tab) 650 mg PO Q4 PRN PRN Reason: Pain, Mild (1-3) Last Admin: 11/13/18 18:57 Dose: 650 mg Amiodarone HCl (Cordarone) 200 mg PO DAILY [facility] Last Admin: 11/14/18 09:20 Dose: 200 mg Apixaban (Eliquis) 2.5 mg PO BID [facility]; Protocol Last Admin: 11/14/18 17:35 Dose: Not Given Atorvastatin Calcium (Lipitor) 10 mg PO MWF [facility] Last Admin: 11/14/18 10:30 Dose: 10 mg Escitalopram Oxalate (Lexapro) 5 mg PO BID [facility] Last Admin: 11/14/18 17:33 Dose: 5 mg Levothyroxine Sodium (Synthroid) 88 mcg PO DAILY@0630 [facility] Last Admin: 11/14/18 09:19 Dose: 88 mcg Lorazepam (Ativan) 0.5 mg PO Q12 PRN PRN Reason: Agitation Metformin HCl (Glucophage) 250 mg PO BID [facility] Last Admin: 11/14/18 17:34 Dose: 250 mg Midodrine (Proamatine) 10 mg PO TID [facility] Last Admin: 11/14/18 17:32 Dose: 10 mg [id number] Ethyl Esters (Lovaza) 1 gm PO BID [facility] Last Admin: 11/14/18 17:35 Dose: 1 gm Pantoprazole Sodium (Protonix Ec Tab) 40 mg PO DAILY [facility] Last Admin: 11/14/18 09:21 Dose: 40 mg Sitagliptin Phosphate (Januvia) 100 mg PO DAILY [facility] Last Admin: 11/14/18 09:20 Dose: 100 mg Physical Exam - Constitutional Appears: Non-toxic - Head Exam Head Exam: NORMAL INSPECTION - Eye Exam Eye Exam: Periorbital swelling, Periorbital tenderness - ENT Exam ENT Exam: Mucous Membranes Moist - Neck Exam Neck exam: Positive for: Full Rom, Normal Inspection. Negative for: Lymph adenopathy, Thyromegaly - Respiratory Exam Respiratory Exam: Decreased Breath Sounds, NORMAL BREATHING PATTERN - Cardiovascular Exam Cardiovascular Exam: Irregular Rhythm - GI/Abdominal Exam GI & Abdominal Exam: Normal Bowel Sounds - Rectal Exam Rectal Exam: Deferred - Extremities Exam Extremities exam: Negative for: pedal edema - Back Exam Back exam: NORMAL INSPECTION - Neurological Exam Neurological exam: Alert, Oriented x3 - Psychiatric Exam Psychiatric exam: Normal Affect - Skin Skin Exam: Normal Color Results - Vital Signs Recent Vital Signs: Last Vital Signs Temp 97.7 F 11/14/18 16:15 Pulse 65 11/14/18 16:15 Resp 18 11/14/18 16:15 BP 137/71 11/14/18 16:15 Pulse Ox 98 11/14/18 16:15 - Labs Result Diagrams: 11/12/18 18:41 11/12/18 18:41 Labs: Laboratory Results - last 24 hr 11/13/18 11/13/18 11/13/18 12:07 16:28 21:10 POC Glucose (mg/dL) 110 90 75 11/14/18 11/14/18 11/14/18 05:33 12:05 16:10 POC Glucose (mg/dL) 95 170 H 111 H - EKG Data EKG Interpreted by: Myself - EKG Data EKG comments: atrial fibrillation Assessment & Plan (1) Orthostasis Assessment and Plan: fall is likely due to orhtostasis. will monitor volume status Status: Acute (2) Atrial fibrillation Assessment and Plan: rate is controlled. given current presentatiion, patient may not be ideal candidate for anticoagulation Status: Acute
--- NOTE | 2018-11-14 22:20 | CP.PCM.PN ---
Subjective - Date & Time of Evaluation Date of Evaluation: 11/14/18 Time of Evaluation: 11:00 - Subjective Subjective: Patient still has significant orthostasis with BP difference of more than 20 mmHg from sitting to standing. Has no dizziness Noted increase in left periorbital swelling. Objective - Vital Signs/Intake and Output Vital Signs (last 24 hours): Temp Pulse Resp BP Pulse Ox 98 F 71 16 149/74 98 11/14/18 20:00 11/14/18 20:00 11/14/18 20:00 11/14/18 20:00 11/14/18 20:00 - Medications Medications: Current Medications Acetaminophen (Tylenol 325mg Tab) 650 mg PO Q4 PRN PRN Reason: Pain, Mild (1-3) Last Admin: 11/13/18 18:57 Dose: 650 mg Amiodarone HCl (Cordarone) 200 mg PO DAILY [facility] Last Admin: 11/14/18 09:20 Dose: 200 mg Apixaban (Eliquis) 2.5 mg PO BID [facility]; Protocol Last Admin: 11/14/18 17:35 Dose: Not Given Atorvastatin Calcium (Lipitor) 10 mg PO MWF [facility] Last Admin: 11/14/18 10:30 Dose: 10 mg Escitalopram Oxalate (Lexapro) 5 mg PO BID [facility] Last Admin: 11/14/18 17:33 Dose: 5 mg Levothyroxine Sodium (Synthroid) 88 mcg PO DAILY@0630 [facility] Last Admin: 11/14/18 09:19 Dose: 88 mcg Lorazepam (Ativan) 0.5 mg PO Q12 PRN PRN Reason: Agitation Metformin HCl (Glucophage) 250 mg PO BID [facility] Last Admin: 11/14/18 17:34 Dose: 250 mg Midodrine (Proamatine) 10 mg PO TID [facility] Last Admin: 11/14/18 17:32 Dose: 10 mg [id number] Ethyl Esters (Lovaza) 1 gm PO BID [facility] Last Admin: 11/14/18 17:35 Dose: 1 gm Pantoprazole Sodium (Protonix Ec Tab) 40 mg PO DAILY [facility] Last Admin: 11/14/18 09:21 Dose: 40 mg Sitagliptin Phosphate (Januvia) 100 mg PO DAILY [facility] Last Admin: 11/14/18 09:20 Dose: 100 mg - Labs Labs: 11/12/18 18:41 11/12/18 18:41 PT 15.0 Seconds (9.8-13.1) H 11/12/18 18:41 INR 1.3 11/12/18 18:41
[2018-11-14] MEDS: Docusate-Senna 50 mg-8.6 mg Tab PO SCH (22:39)
[2018-11-15] MEDS: Levothyroxine 88 MCG TAB PO SCH (06:13)
[2018-11-15] MEDS: Omega-3-Acid Ethyl Esters 1 GM Cap PO SCH ×2 (08:51→17:25)
[2018-11-15] MEDS: Pantoprazole 40 mg EC Tab PO SCH (08:52)
[2018-11-15 12:58] LABS: CALCIUM 9.5 mg/dL (8.4-10.2)
--- NOTE | 2018-11-15 13:34 | CP.PCM.PCO ---
Assessment/Plan - Assessment and Plan (Free Text) Assessment: Patient seen and examined Pt remains with orthostatic hypotension. On midodrine 10mg TID, discussed with dr Woody plan to add florinef daily and monitor for 24 hours. Discussed with attending dr Peters.
--- NOTE | 2018-11-15 15:29 | CP.PCM.PN ---
Subjective - Date & Time of Evaluation Date of Evaluation: 11/15/18 Time of Evaluation: 15:15 - Subjective Subjective: Pt seen/eval at bedside; family visiting. No acute events overnight. States she is able to ambulate with less dizziness. No chest pain or trouble breathing. Still has orthostatic hypotension findings. Objective - Vital Signs/Intake and Output Vital Signs (last 24 hours): Temp Pulse Resp BP Pulse Ox 97.4 F L 74 20 115/71 97 11/15/18 12:16 11/15/18 12:16 11/15/18 12:16 11/15/18 12:16 11/15/18 12:16 - Medications Medications: Current Medications Acetaminophen (Tylenol 325mg Tab) 650 mg PO Q4 PRN PRN Reason: Pain, Mild (1-3) Last Admin: 11/13/18 18:57 Dose: 650 mg Amiodarone HCl (Cordarone) 200 mg PO DAILY [facility] Last Admin: 11/15/18 08:47 Dose: 200 mg Atorvastatin Calcium (Lipitor) 10 mg PO MWF [facility] Last Admin: 11/14/18 10:30 Dose: 10 mg Escitalopram Oxalate (Lexapro) 5 mg PO BID [facility] Last Admin: 11/15/18 08:50 Dose: 5 mg Fludrocortisone Acetate (Florinef) 0.1 mg PO DAILY [facility] Last Admin: 11/15/18 15:01 Dose: 0.1 mg Levothyroxine Sodium (Synthroid) 88 mcg PO DAILY@0630 [facility] Last Admin: 11/15/18 06:13 Dose: 88 mcg Lorazepam (Ativan) 0.5 mg PO Q12 PRN PRN Reason: Agitation Metformin HCl (Glucophage) 250 mg PO BID [facility] Last Admin: 11/15/18 08:49 Dose: 250 mg Midodrine (Proamatine) 10 mg PO TID [facility] Last Admin: 11/15/18 13:05 Dose: 10 mg [id number] Ethyl Esters (Lovaza) 1 gm PO BID [facility] Last Admin: 11/15/18 08:51 Dose: 1 gm Pantoprazole Sodium (Protonix Ec Tab) 40 mg PO DAILY [facility] Last Admin: 11/15/18 08:52 Dose: 40 mg Senna/Docusate Sodium (Senokot S 50 Mg-8.6 Mg) 1 tab PO HS [facility] Last Admin: 11/14/18 22:39 Dose: 1 tab Sitagliptin Phosphate (Januvia) 100 mg PO DAILY [facility] Last Admin: 11/15/18 08:50 Dose: 100 mg - Labs Labs: 11/12/18 18:41 11/15/18 12:44 PT 15.0 Seconds (9.8-13.1) H 11/12/18 18:41 INR 1.3 11/12/18 18:41 - Constitutional Appears: No Acute Distress - Head Exam Head Exam: absent: ATRAUMATIC Additional comments: multiple bruises from fall - Eye Exam Eye Exam: Normal appearance - ENT Exam ENT Exam: Mucous Membranes Moist - Respiratory Exam Respiratory Exam: Clear to Ausculation Bilateral, NORMAL BREATHING PATTERN - Cardiovascular Exam Cardiovascular Exam: REGULAR RHYTHM - GI/Abdominal Exam GI & Abdominal Exam: Soft, Normal Bowel Sounds - Neurological Exam Neurological Exam: Alert - Skin Skin Exam: Dry, Warm Assessment and Plan (1) Orthostatic hypotension Status: Acute (2) Atrial fibrillation Status: Chronic (3) Diabetes mellitus type 2 in nonobese Status: Chronic (4) HTN (hypertension) Status: Chronic - Assessment and Plan (Free Text) Plan: - Continue tele monitoring - As per ENVIRONMENTAL FIELD OFFICE MANAGER discussion w/ Dr. Woody, pt is on midodrine 10mg TID, plan to add florinef daily and monitor for 24 hours. Hold eliquis - Continue with home meds otherwise - Heart healthy diet - Continue to monitor orthostatics - PT - SCD
[2018-11-15] MEDS: Docusate-Senna 50 mg-8.6 mg Tab PO SCH (21:43)
[2018-11-16] MEDS: Levothyroxine 88 MCG TAB PO SCH (05:43)
[2018-11-16] MEDS: Omega-3-Acid Ethyl Esters 1 GM Cap PO SCH ×2 (08:47→18:50)
[2018-11-16] MEDS: Pantoprazole 40 mg EC Tab PO SCH (08:48)
--- NOTE | 2018-11-16 16:08 | CP.PCM.PN ---
Subjective - Date & Time of Evaluation Date of Evaluation: 11/16/18 Time of Evaluation: 11:10 - Subjective Subjective: Pt seen/eval at bedside w/ Dr. Peters. No acute events overnight; no chest pain, shortness of breath, dizziness. Started on florinef today as per control clerk food and beverage recs. Objective - Vital Signs/Intake and Output Vital Signs (last 24 hours): Temp Pulse Resp BP Pulse Ox 98.1 F 59 L 17 151/76 H 99 11/16/18 15:54 11/16/18 15:54 11/16/18 15:54 11/16/18 15:54 11/16/18 15:54 - Medications Medications: Current Medications Acetaminophen (Tylenol 325mg Tab) 650 mg PO Q4 PRN PRN Reason: Pain, Mild (1-3) Last Admin: 11/13/18 18:57 Dose: 650 mg Amiodarone HCl (Cordarone) 200 mg PO DAILY [facility] Last Admin: 11/16/18 08:48 Dose: 200 mg Atorvastatin Calcium (Lipitor) 10 mg PO MWF [facility] Last Admin: 11/16/18 08:48 Dose: 10 mg Escitalopram Oxalate (Lexapro) 5 mg PO BID [facility] Last Admin: 11/16/18 08:47 Dose: 5 mg Fludrocortisone Acetate (Florinef) 0.1 mg PO DAILY [facility] Last Admin: 11/16/18 08:47 Dose: 0.1 mg Levothyroxine Sodium (Synthroid) 88 mcg PO DAILY@0630 [facility] Last Admin: 11/16/18 05:43 Dose: 88 mcg Metformin HCl (Glucophage) 250 mg PO BID [facility] Last Admin: 11/16/18 08:48 Dose: 250 mg Midodrine (Proamatine) 10 mg PO TID [facility] Last Admin: 11/16/18 13:42 Dose: 10 mg Fvusc-0-Jfmo Ethyl Esters (Lovaza) 1 gm PO BID [facility] Last Admin: 11/16/18 08:47 Dose: 1 gm Pantoprazole Sodium (Protonix Ec Tab) 40 mg PO DAILY [facility] Last Admin: 11/16/18 08:48 Dose: 40 mg Senna/Docusate Sodium (Senokot S 50 Mg-8.6 Mg) 1 tab PO HS [facility] Last Admin: 11/15/18 21:43 Dose: 1 tab Sitagliptin Phosphate (Januvia) 100 mg PO DAILY [facility] Last Admin: 11/16/18 08:48 Dose: 100 mg - Labs Labs: 11/12/18 18:41 11/15/18 12:44 PT 15.0 Seconds (9.8-13.1) H 11/12/18 18:41 INR 1.3 11/12/18 18:41 - Constitutional Appears: No Acute Distress - Head Exam Head Exam: absent: ATRAUMATIC Additional comments: multiple bruises from fall - Eye Exam Eye Exam: Normal appearance - ENT Exam ENT Exam: Mucous Membranes Moist - Respiratory Exam Respiratory Exam: Clear to Ausculation Bilateral, NORMAL BREATHING PATTERN - Cardiovascular Exam Cardiovascular Exam: REGULAR RHYTHM - GI/Abdominal Exam GI & Abdominal Exam: Soft - Extremities Exam Extremities Exam: Normal Inspection. absent: Calf Tenderness - Neurological Exam Neurological Exam: Alert - Skin Skin Exam: Dry, Warm Assessment and Plan (1) Orthostatic hypotension Status: Acute (2) Atrial fibrillation Status: Chronic (3) Diabetes mellitus type 2 in nonobese Status: Chronic (4) HTN (hypertension) Status: Chronic - Assessment and Plan (Free Text) Plan: - Continue tele monitoring - Cardiology consult - Dr. Woody: continue with midodrine 10mg TID, added florinef, hold eliquis; recs appreciated - Continue with home meds otherwise - Heart healthy diet - Continue to monitor orthostatics - PT - SCD
[2018-11-16] MEDS: Docusate-Senna 50 mg-8.6 mg Tab PO SCH (21:43)
[2018-11-17] MEDS: Levothyroxine 88 MCG TAB PO SCH (06:05)
[2018-11-17 07:36] LABS: BLOOD UREA NITROGEN 15 mg/dl (7-17); CALCIUM 9.5 mg/dL (8.4-10.2); GFR NON-AFRICAN AMERICAN 53
[2018-11-17 08:20] VITALS: RESP 20
[2018-11-17] MEDS: Pantoprazole 40 mg EC Tab PO SCH (09:03)
[2018-11-17] MEDS: Omega-3-Acid Ethyl Esters 1 GM Cap PO SCH (09:05)
--- NOTE | 2018-11-17 11:41 | CP.PCM.PN ---
Subjective - Date & Time of Evaluation Date of Evaluation: 11/17/18 Time of Evaluation: 10:45 - Subjective Subjective: patient feels better. tolerating florinef Objective - Vital Signs/Intake and Output Vital Signs (last 24 hours): Temp Pulse Resp BP Pulse Ox 97.8 F 70 20 125/75 99 11/17/18 08:20 11/17/18 09:04 11/17/18 08:20 11/17/18 09:04 11/17/18 08:20 - Medications Medications: Current Medications Acetaminophen (Tylenol 325mg Tab) 650 mg PO Q4 PRN PRN Reason: Pain, Mild (1-3) Last Admin: 11/13/18 18:57 Dose: 650 mg Amiodarone HCl (Cordarone) 200 mg PO DAILY [facility] Last Admin: 11/17/18 09:04 Dose: 200 mg Atorvastatin Calcium (Lipitor) 10 mg PO MWF [facility] Last Admin: 11/16/18 08:48 Dose: 10 mg Escitalopram Oxalate (Lexapro) 5 mg PO BID [facility] Last Admin: 11/17/18 09:04 Dose: 5 mg Fludrocortisone Acetate (Florinef) 0.1 mg PO DAILY [facility] Last Admin: 11/17/18 09:04 Dose: 0.1 mg Levothyroxine Sodium (Synthroid) 88 mcg PO DAILY@0630 [facility] Last Admin: 11/17/18 06:05 Dose: 88 mcg Metformin HCl (Glucophage) 250 mg PO BID [facility] Last Admin: 11/17/18 09:04 Dose: 250 mg Midodrine (Proamatine) 10 mg PO TID [facility] Last Admin: 11/17/18 09:03 Dose: 10 mg [id number]-[id number] Ethyl Esters (Lovaza) 1 gm PO BID [facility] Last Admin: 11/17/18 09:05 Dose: 1 gm Pantoprazole Sodium (Protonix Ec Tab) 40 mg PO DAILY [facility] Last Admin: 11/17/18 09:03 Dose: 40 mg Senna/Docusate Sodium (Senokot S 50 Mg-8.6 Mg) 1 tab PO HS [facility] Last Admin: 11/16/18 21:43 Dose: 1 tab Sitagliptin Phosphate (Januvia) 100 mg PO DAILY [facility] Last Admin: 11/17/18 09:03 Dose: 100 mg - Labs Labs: 11/12/18 18:41 11/17/18 05:30 PT 15.0 Seconds (9.8-13.1) H 11/12/18 18:41 INR 1.3 11/12/18 18:41 - Constitutional Appears: Non-toxic - Head Exam Head Exam: NORMAL INSPECTION - Eye Exam Eye Exam: Normal appearance - ENT Exam ENT Exam: Mucous Membranes Moist - Neck Exam Neck Exam: Full ROM - Respiratory Exam Respiratory Exam: NORMAL BREATHING PATTERN - Cardiovascular Exam Cardiovascular Exam: Irregular Rhythm - GI/Abdominal Exam GI & Abdominal Exam: Normal Bowel Sounds - Rectal Exam Rectal Exam: Deferred - Extremities Exam Extremities Exam: absent: Pedal Edema - Back Exam Back Exam: NORMAL INSPECTION - Neurological Exam Neurological Exam: Alert - Psychiatric Exam Psychiatric exam: Normal Affect - Skin Skin Exam: Normal Color Assessment and Plan (1) Orthostasis Assessment & Plan: started florinef with symptomatic improvement. will continue. Status: Acute (2) Atrial fibrillation Assessment & Plan: given frequnet falls, will stop Eliquis. ASA 81 mg daily can be continued. Status: Chronic (3) Coronary artery disease Assessment & Plan: stable and without angina. will conitnue ASA 81 mg daily. Status: Chronic
[2018-11-17 12:40] VITALS: BP 119/70; PULSE 65; TEMP 97.5; O2SAT 96
--- NOTE | 2018-11-17 14:33 | CP.PCM.DIS ---
Provider - Provider Date of Admission: 11/14/18 12:41 Attending physician: Ishan Peters MD Consults: 11/13/18 12:28 Cardiology Consult Routine Comment: Consulting Provider: Miguel Angel Woody Consulting Physician: Miguel Angel Woody Reason for Consult: Fall, pacemaker, orthostatic hypotention 11/13/18 15:42 Neurology Consult Routine Comment: Consulting Provider: Vicente Lopez Consulting Physician: Vicente Lopez Reason for Consult: Fall, left large periorbital edema Hospital Course - Lab Results Lab Results: Most Recent Lab Values WBC 7.2 K/uL (4.8-10.8) 11/12/18 18:41 RBC 3.71 Mil/uL (3.80-5.20) L 11/12/18 18:41 Hgb 10.9 g/dL (12.0-16.0) L 11/12/18 18:41 Hct 33.2 % (34.0-47.0) L 11/12/18 18:41 MCV 89.5 fl (81.0-99.0) 11/12/18 18:41 MCH 29.4 pg (27.0-31.0) 11/12/18 18:41 MCHC 32.9 g/dL (33.0-37.0) L 11/12/18 18:41 RDW 15.6 % (11.5-14.5) H 11/12/18 18:41 Plt Count 231 K/uL (130-400) 11/12/18 18:41 MPV 7.6 fl (7.2-11.7) 11/12/18 18:41 Neut % (Auto) 61.5 % (50.0-75.0) 11/12/18 18:41 Lymph % (Auto) 28.1 % (20.0-40.0) 11/12/18 18:41 [place] % (Auto) 6.3 % (0.0-10.0) 11/12/18 18:41 Eos % (Auto) 3.4 % (0.0-4.0) 11/12/18 18:41 Baso % (Auto) 0.7 % (0.0-2.0) 11/12/18 18:41 Neut # (Auto) 4.4 K/uL (1.8-7.0) 11/12/18 18:41 Lymph # (Auto) 2.0 K/uL (1.0-4.3) 11/12/18 18:41 [place] # (Auto) 0.5 K/uL (0.0-0.8) 11/12/18 18:41 Eos # (Auto) 0.2 K/uL (0.0-0.7) 11/12/18 18:41 Baso # (Auto) 0.1 K/uL (0.0-0.2) 11/12/18 18:41 PT 15.0 Seconds (9.8-13.1) H 11/12/18 18:41 INR 1.3 11/12/18 18:41 Sodium 135 mmol/l (132-148) 11/17/18 05:30 Potassium 4.6 MMOL/L (3.6-5.0) 11/17/18 05:30 Chloride 99 mmol/L (98-107) 11/17/18 05:30 Carbon Dioxide 25 mmol/L (22-30) 11/17/18 05:30 Anion Gap 16 (10-20) 11/17/18 05:30 BUN 15 mg/dl (7-17) 11/17/18 05:30 Creatinine 1.0 mg/dl (0.7-1.2) 11/17/18 05:30 Est GFR ( Amer) > 60 11/17/18 05:30 Est GFR (Non-Af Amer) 53 11/17/18 05:30 POC Glucose (mg/dL) 153 mg/dL (65-110) H 11/17/18 12:02 Random Glucose 98 mg/dL (65-105) 11/17/18 05:30 Calcium 9.5 mg/dL (8.4-10.2) 11/17/18 05:30 Total Bilirubin 0.5 mg/dl (0.2-1.3) 11/12/18 18:41 AST 68 U/L (14-36) H 11/12/18 18:41 ALT 46 U/L (9-52) 11/12/18 18:41 Alkaline Phosphatase 113 U/L (38-126) 11/12/18 18:41 Troponin I < 0.0120 ng/mL (0.00-0.120) 11/12/18 18:41 Total Protein 8.0 G/DL (6.3-8.2) 11/12/18 18:41 Albumin 4.4 g/dL (3.5-5.0) 11/12/18 18:41 Globulin 3.6 gm/dL (2.2-3.9) 11/12/18 18:41 Albumin/Globulin Ratio 1.2 (1.0-2.1) 11/12/18 18:41 - Hospital Course Hospital Course: Patient was admitted after a fall at home and sustained facial ecchymoses. She was noted to have significant orthostatic hypotension depsite being on Midodrine 5 mg tid. Discharge Exam - Head Exam Head Exam: NORMAL INSPECTION Discharge Plan - Discharge Medications Prescriptions: Aspirin [Ecotrin] 81 mg PO DAILY 90 Days #90 tabec Fludrocortisone [Florinef] 0.1 mg PO DAILY 90 Days #90 tab Midodrine [Proamatine] 10 mg PO TID 30 Days #90 tab - Follow Up Plan Condition: FAIR Disposition: HOME/ ROUTINE Instructions: Orthostatic Hypotension (DC) Referrals: Ishan Peters MD [Family Provider] - Miguel Angel Woody MD [Staff Provider] -
== END 2018-11-17 15:50 | disposition home or self-care (01) | DRG 312 ==
LOC: H.ER 17:36 → H.ERHOLD 18:36 → H.TEL 21:53 → OBSVTOIN 11-14 12:41
PROVIDERS: ADMIT Family Medicine; ATTEND Family Medicine
DX: I95.1 Orthostatic hypotension (principal); S09.90XA Unspecified injury of head, initial encounter; S05.12XA Contusion of eyeball and orbital tissues, left eye, initial encounter; I48.2 Chronic atrial fibrillation; S89.81XA Other specified injuries of right lower leg, initial encounter; E11.9 Type 2 diabetes mellitus without complications; E03.9 Hypothyroidism, unspecified; I10 Essential (primary) hypertension; I25.10 Atherosclerotic heart disease of native coronary artery without angina pectoris; E78.00 Pure hypercholesterolemia, unspecified; F41.9 Anxiety disorder, unspecified; M19.90 Unspecified osteoarthritis, unspecified site; W01.198A Fall on same level from slipping, tripping and stumbling with subsequent striking against other object, initial encounter; Y92.009 Unspecified place in unspecified non-institutional (private) residence as the place of occurrence of the external cause; Z79.01 Long term (current) use of anticoagulants; Z79.82 Long term (current) use of aspirin; Z86.711 Personal history of pulmonary embolism; Z95.1 Presence of aortocoronary bypass graft; Z79.84 Long term (current) use of oral hypoglycemic drugs